=== PATIENT | male | born 1955 | race Caucasian/White ===

== ENCOUNTER 2016-11-13 17:16 | Inpatient (IN) | payer OTHER, MEDICARE ==
[2016-11-13] VITALS (13 sets, daily range): BP systolic 76–101; BP diastolic 51–66; PULSE 96–106; RESP 15–22; TEMP 97.5–98.7; O2SAT 90–100
[~2016-11-13] VITALS: Ht 180.3 cm; Wt 70.0 kg
[~2016-11-13 17:16] MED LIST: HYDR-3533 PO; METO25TA3 PO; PNEU13P IM; TYLETAB34 PO
[2016-11-13] MEDS ORDERED: methylPREDNISolone SOD SUCC 125 MG/2 ML VIAL IVP ONE (17:45)
[2016-11-13] MEDS ORDERED: SODIUM CHLORIDE 0.9% FLUSH 10 ML FLUSH IVF PRN (17:45)
--- NOTE | 2016-11-13 17:46 | PD ---
HPI Chief Complaint: Respiratory Distress Time Seen by Provider: 17:27 Travel History International Travel<30 days: No Contact w/Intl Traveler<30days: No Traveled to known affect area: No History of Present Illness HPI This is a 61 year old male who presents to the emergency department with increasing shortness of breath and weakness, constant, moderate severity, worse with exertion associated with frequent falls. The patient has a history of stage III lung cancer for which she follows with Dr. Reynoso currently and he is currently in remission. He completed chemotherapy and radiation several years ago with Dr. Carranza. He is concerned because he has been increasingly dyspneic. He does smoke 8 cigarettes per week. He's had increasing sputum production with yellow and green sputum. He denies any fevers or chills. He is been having easy bruising. PFSH Past Medical History Hx Anticoagulant Therapy: Yes (325MG ASA) Anemia: Yes Arthritis: No Asthma: Yes Autoimmune Disease: No Anxiety: Yes Depression: Yes Heart Rhythm Problems: No Cancer: Yes (LUNG CANCER ) Cardiovascular Problems: Yes (CHF) High Cholesterol: No Chemotherapy: Yes (2011) Chest Pain: Yes Congestive Heart Failure: Yes COPD: Yes (Wears O2 at night) Cerebrovascular Accident: No Diabetes: No Diminished Hearing: No Endocrine: No Gastrointestinal Disorders: Yes (GERD) GERD: Yes Genitourinary: No Headaches: Yes Hepatitis: No Hiatal Hernia: No Hypertension: Yes Immune Disorder: No Implanted Vascular Access Dvce: Yes (RIGHT CHEST PORT) Kidney Stones: No Musculoskeletal: No Neurologic: No Psychiatric: No Reproductive: No Respiratory: Yes (LUNG CA, COPD) Immunizations Current: Yes Migraines: No Pneumonia: Yes Radiation Therapy: Yes Renal Failure: No Seizures: No Sickle Cell Disease: No Thyroid Disease: No Ulcer: No ?: Not Past Surgical History Abdominal Surgery: No AICD: No Arteriovenous Shunt: No Body Medical Devices: PORT SIDE INFUSAPORT Cardiac Surgery: No Ear Surgery: No Endocrine Surgery: No Eye Surgery: No Genitourinary Surgery: Yes (VASECTOMY) Hysterectomy: No Insulin Pump: No Joint Replacement: No Oral Surgery: No Pacemaker: No Thoracic Surgery: No Other Surgery: Yes (PORT RIGHT CHEST) Social History Alcohol Use: Yes (COUPLE DRINKS PER WEEK) Tobacco Use: Yes (5 CIGARETTES PER DAY) Substance Use: No Allergies-Medications (Allergen,Severity, Reaction): Coded Allergies: penicillin G (Unverified Allergy, Severe, ANAPHYLAXIS, 11/13/16) Reported Meds & Prescriptions Reported Meds & Active Scripts Active Tylenol-Codeine #3 (Acetaminophen-Codeine) 300-30 mg Tab 1-2 Tab PO Q6H PRN Reported Lasix (Furosemide) 20 Mg Tab 20 Mg PO DAILY Mirtazapine 15 Mg Tab 15 Mg PO HS Lortab (Hydrocodone-Acetaminophen) 5-325 Mg Tab 1 Tab PO Q6H PRN Metoprolol Tartrate 25 Mg Tab 25 Mg PO DAILY Review of Systems Except as stated in HPI: all other systems reviewed are Neg Physical Exam Narrative GENERAL: Chronically unwell-appearing SKIN: Pale sclera, ecchymoses over the bilateral upper and lower extremities HEAD: Atraumatic. Normocephalic. EYES: Pupils equal and round. No injection or drainage. ENT: Moist mucous membranes NECK: Trachea midline. CARDIOVASCULAR: Regular rate and rhythm. No murmur appreciated. RESPIRATORY: Rales in the bilateral bases with some expiratory wheezing GASTROINTESTINAL: Abdomen soft, non-tender, nondistended. MUSCULOSKELETAL: No obvious deformities. NEUROLOGICAL: Awake and alert. No obvious cranial nerve deficits. No dysarthria or aphasia. No upper or lower extremity drift. No upper extremity ataxia. PSYCHIATRIC: Appropriate mood and affect; insight and judgment normal. Data Data Last Documented VS Vital Signs Date Time Temp Pulse Resp B/P (MAP) Pulse Ox O2 Delivery O2 Flow Rate FiO2 11/13/16 19:11 106 16 97/66 (76) 98 Room Air 11/13/16 18:30 2.00 11/13/16 17:20 97.5 Orders Orders Complete Blood Count With Diff (11/13/16 17:37) Comprehensive Metabolic Panel (11/13/16 17:37) B-Type Natriuretic Peptide (11/13/16 17:37) Act Partial Throm Time (Ptt) (11/13/16 17:37) Prothrombin Time / Inr (Pt) (11/13/16 17:37) Troponin I (11/13/16 17:37) Iv Access Insert/Monitor (11/13/16 17:37) Electrocardiogram (11/13/16 17:37) Ecg Monitoring (11/13/16 17:37) Oximetry (11/13/16 17:37) Oxygen Administration (11/13/16 17:37) Chest, Single Ap (11/13/16 17:37) Sodium Chloride 0.9% Flush (Ns Flush) (11/13/16 17:45) Methylprednisolone So Succ Inj (Solumedr (11/13/16 17:45) Albuterol-Ipratropium Neb (Duoneb Neb) (11/13/16 17:45) Us Leg Venous Doppler Bilat (11/13/16 ) Ct Brain W/O Iv Contrast(Rout) (11/13/16 ) Ct Thorax/ Chest W Iv Contrast (11/13/16 ) Labs Laboratory Tests Test 11/13/16 17:56 White Blood Count 5.4 TH/MM3 Red Blood Count 2.70 MIL/MM3 Hemoglobin 8.4 GM/DL Hematocrit 24.2 % Mean Corpuscular Volume 89.8 FL Mean Corpuscular Hemoglobin 31.3 PG Mean Corpuscular Hemoglobin Concent 34.9 % Red Cell Distribution Width 34.1 % Platelet Count 145 TH/MM3 Mean Platelet Volume 9.4 FL Neutrophils (%) (Auto) 56.4 % Lymphocytes (%) (Auto) 23.0 % Monocytes (%) (Auto) 11.2 % Eosinophils (%) (Auto) 2.1 % Basophils (%) (Auto) 7.3 % Neutrophils # (Auto) 3.0 TH/MM3 Lymphocytes # (Auto) 1.2 TH/MM3 Monocytes # (Auto) 0.6 TH/MM3 Eosinophils # (Auto) 0.1 TH/MM3 Basophils # (Auto) 0.4 TH/MM3 CBC Comment AUTO DIFF Prothrombin Time 12.3 SEC Prothromb Time International Ratio 1.1 RATIO Activated Partial Thromboplast Time 35.4 SEC MDM Medical Decision Making Medical Screen Exam Complete: Yes Emergency Medical Condition: Yes Interpretation(s) afebrile, tachycardic, hypotensive no leukocytosis anemia 8.4 down from 10.7 in may Coags are normal Last 24 hours Impressions Chest X-Ray 11/13/16 1737 Signed Impressions: Service Date/Time: Sunday, November 13, 2016 17:58 - CONCLUSION: No acute findings. Jose Francois MD Lower Extremity Ultrasound 11/13/16 0000 Signed Impressions: Service Date/Time: Sunday, November 13, 2016 17:57 - CONCLUSION: No DVT of either lower extremity. Jose Francois MD Differential Diagnosis Upper GI bleed, lower GI bleed, sepsis, hypovolemia, lung cancer, pneumonia Narrative Course This is a 61-year-old male who presents to the emergency department with a remote history of lung cancer reporting increasing shortness of breath over the past several days, generalized weakness and increasing falls. On arrival he was hypotensive. He was given a liter of IV fluid. On reassessment his map was 79. Hemoccult was obtained which was positive but stool was normal in color. Patient has a hemoglobin of 8.4 which is significantly decreased from 10.7 and March. Patient will be ordered for 2 units of blood. Labs are still pending. Following labs patient should be admitted. Given his hypotension I think it's reasonable to admit him to the intensive care unit. Critical Care Narrative Aggregate critical care time was 35 minutes. Time to perform other separately billable procedures was not included in the critical care time. My time did not include minutes spent treating any other patients simultaneously or on activities that did not directly contribute to the patient's treatment. The services I provided to this patient were to treat and/or prevent clinically significant deterioration that could result in: disability, I provided critical care services requiring my management, as noted below: Chart data review, documentation time, medication orders and management, vital sign assessments/reviewing monitor data, ordering and reviewing lab tests, ordering and interpreting/reviewing x-rays and diagnostic studies, care of the patient and discussion of the patient with the admitting physicians. Diagnosis Primary Impression: GI bleed Qualified Codes: K92.2 - Gastrointestinal hemorrhage, unspecified Admitting Information Admitting Physician Requests: it Marly Rogers MD Nov 13, 2016 17:46
[2016-11-13] MEDS: RESP: ALBUTEROL 2.5 MG/IPRATROPIUM 0.5 MG NEB (SCH) INH ×3 (17:58→23:27)
--- NOTE | 2016-11-13 18:06 | RADRPT ---
EXAM DATE/TIME: 11/13/2016 17:58 [facility] COMPARISON: CHEST SINGLE AP, September 06, 2015, 14:43. INDICATIONS : Short of breath. MEDICAL HISTORY : Carcinoma, lung. Chronic obstructive pulmonary disease. Hypertension. SURGICAL HISTORY : None. ENCOUNTER: Initial ACUITY: 1 day PAIN SCORE: 0/10 LOCATION: Bilateral chest FINDINGS: Dense chronic consolidation of the apex and volume loss on the right again noted. There is mild scarr ing in the left midlung and left base, also unchanged. No acute infiltrates seen. No pleural effusion or pneumothorax. Heart size stable, upper limits of normal. Right IJ Mcimmp-s-Hocp catheter again seen, tip in the right atrium. CONCLUSION: No acute findings. Jose Francois MD on November 13, 2016 at 18:04 Board Certified Radiologist. This report was verified electronically.
--- NOTE | 2016-11-13 18:34 | RADRPT ---
EXAM DATE/TIME: 11/13/2016 17:57 [facility] COMPARISON: US LEG BILATERAL VENOUS DOPPLER, December 19, 2014, 12:23. INDICATIONS : Shortness of breath. MEDICAL HISTORY : Chronic obstructive pulmonary disease. Gastroesophageal reflux disease. Carcinoma, lung. Congestive h eart failure. Chest pain. Hypertension. Asthma. Anxiety. Depression. Chemotherapy. SURGICAL HISTORY : Vasectomy. Port right chest. ENCOUNTER: Initial ACUITY: 4 - 6 days PAIN SCORE: 0/10 LOCATION: Bilateral legs. TECHNIQUE: Venous ultrasound of the left and right leg was performed from the inguinal ligament to the proximal calf. Real-time, color Doppler and spectral tracing, compression and augmentation techniques were us ed. FINDINGS: RIGHT LEG: There is normal compressibility of the deep venous system from the inguinal region to the proximal ca lf. No echogenic clot is seen in the lumen of the common femoral, femoral, popliteal, and posterior tibial veins. There is a normal response of the venous system to proximal and distal augmentation an d respiration. LEFT LEG: There is normal compressibility of the deep venous system from the inguinal region to the proximal ca lf. No echogenic clot is seen in the lumen of the common femoral, femoral, popliteal, and posterior tibial veins. There is a normal response of the venous system to proximal and distal augmentation an d respiration. CONCLUSION: No DVT of either lower extremity. Jose Francois MD on November 13, 2016 at 18:32 Board Certified Radiologist. This report was verified electronically.
[2016-11-13 18:50] LABS: APTT (PATIENT) 35.4 SEC (24.3-30.1); INTERNATIONAL NORMALIZED RATIO 1.1 RATIO; PROTHROMBIN TIME - PATIENT 12.3 SEC (9.8-11.6)
[2016-11-13] MEDS ORDERED: FURO1TAB62 PO (18:51)
[2016-11-13] MEDS ORDERED: MIRTA15 PO (18:51)
[2016-11-13 18:52] LABS: BASOPHIL # 0.4 TH/MM3 (0-0.2); BASOPHIL % 7.3 % (0.0-2.0); EOSINOPHIL # 0.1 TH/MM3 (0-0.4); EOSINOPHIL % 2.1 % (0.0-4.0); HEMATOCRIT 24.2 % (39.0-51.0); LYMPHOCYTE # 1.2 TH/MM3 (1.0-4.8); MEAN CELL VOLUME 89.8 FL (80.0-100.0); MEAN CORPUSCULAR HEMOGLOBIN 31.3 PG (27.0-34.0); MEAN CORPUSCULAR HGB CONC 34.9 % (32.0-36.0); MONO % 11.2 % (0.0-8.0); NEUT % 56.4 % (16.0-70.0); PLATELET COUNT 145 TH/MM3 (150-450); RED CELL DISTRIBUTION WIDTH 34.1 % (11.6-17.2); WHITE BLOOD COUNT 5.4 TH/MM3 (4.0-11.0)
[2016-11-13 18:56] LABS: HEMO FLAGS AUTO DIFF
[2016-11-13 19:14] LABS: ALKALINE PHOSPHATASE 161 U/L (45-117); ALT (GPT) 11 U/L (12-78); TOTAL BILIRUBIN ADULT 0.2 MG/DL (0.2-1.0)
[2016-11-13 19:19] LABS: ANION GAP 13 MEQ/L (5-15); AST (GOT) 18 U/L (15-37); BICARBONATE 23.4 MEQ/L (21.0-32.0); BLOOD UREA NITROGEN 7 MG/DL (7-18); CHLORIDE 92 MEQ/L (98-107); GLOMERULAR FILTRATION RATE 106 ML/MIN (>89); POTASSIUM 3.6 MEQ/L (3.5-5.1); SODIUM (NA) 128 MEQ/L (136-145)
[2016-11-13] MEDS ORDERED: ONDANSETRON HCL 4 MG/2 ML VIAL IV PUSH PRN (19:30)
[2016-11-13] MEDS ORDERED: CHLORHEXIDINE GLUCONATE 2 % 1 PACK (2 CLOTHS) TOP PRN (19:30)
[2016-11-13] MEDS ORDERED: LACTULOSE SYRUP 20 GM/30 ML CUP PO PRN (19:30)
[2016-11-13] MEDS ORDERED: MAGNESIUM HYDROXIDE SUSP 30 ML CUP PO PRN (19:30)
[2016-11-13] MEDS ORDERED: SODIUM CHLOR 0.9% 250 ML INJ 250 ML IV ONE (19:30)
[2016-11-13] MEDS ORDERED: BISACODYL 10 MG SUPP RECTAL PRN (19:30)
[2016-11-13] MEDS ORDERED: ACETAMINOPHEN 325 MG TAB PO PRN (19:30)
[2016-11-13] MEDS ORDERED: RESP: ALBUTEROL 2.5 MG/3 ML NEB (PRN) INH (19:30)
[2016-11-13] MEDS ORDERED: MISCELLANEOUS NURSING INFORMATION XX SCH (19:30)
[2016-11-13] MEDS ORDERED: SENNOSIDES 8.6 MG TAB PO PRN (19:30)
[2016-11-13] MEDS ORDERED: SODIUM CHLORIDE 0.9% FLUSH 10 ML FLUSH IV FLUSH PRN (19:30)
--- NOTE | 2016-11-13 19:37 | HHI.HP ---
[facility] Service Critical Care Medicine Primary Care Physician Ney Sawyer M.D. Admission Diagnosis Chronic respiratory failure gi bleed Diagnosis: (1) Thrombocytopenia Diagnosis: Principal (2) Acute blood loss anemia Diagnosis: Principal (3) Hypoglycemia Diagnosis: Principal (4) Elevated partial thromboplastin time (PTT) Diagnosis: Principal (5) Hyponatremia Diagnosis: Principal (6) GI bleed Diagnosis: Principal (7) Alcoholism Diagnosis: Principal (8) Tobacco dependence syndrome Diagnosis: Principal (9) Anxiety disorder Diagnosis: Principal (10) Non-small cell lung cancer Diagnosis: Principal (11) Shortness of breath Diagnosis: Principal (12) Hypertension Diagnosis: Principal (13) Systolic CHF Diagnosis: Principal (14) Lower extremity edema Diagnosis: Principal (15) Chronic systolic heart failure Diagnosis: Principal (16) Gastroesophageal reflux disease Diagnosis: Principal (17) Chronic respiratory failure Diagnosis: Principal Chief Complaint: Weakness, shortness of breath, lower extremity edema Travel History International Travel<30 Days: No Contact w/Intl Traveler <30 Da: No Traveled to Known Affected Are: No History of Present Illness 61-year-old male. Date of admission 11/13/2016. Past medical history includes chronic systolic heart failure ejection fraction 3035%, COPD on 2.5 L chronic oxygen, prior tobaccoism, stage III poorly differentiated non-small cell carcinoma along right sided osteoarthritis, anxiety, Review of Systems Constitutional: COMPLAINS OF: Fatigue, Weight gain, DENIES: Fever, Weight loss , Chills, Dizziness Endocrine: DENIES: Polydipsia, Polyuria Eyes: DENIES: Blurred vision Ears, nose, mouth, throat: DENIES: Tinnitus, Toothache Respiratory: COMPLAINS OF: Cough, Shortness of breath, DENIES: Sputum production Cardiovascular: DENIES: Chest pain Gastrointestinal: COMPLAINS OF: Constipation, DENIES: Abdominal pain, Nausea, Vomiting Genitourinary: DENIES: Dysuria Musculoskeletal: DENIES: Stiffness, Joint Swelling Integumentary: DENIES: Abnormal pigmentation Hematologic/lymphatic: COMPLAINS OF: Bruising Immunologic/allergic: DENIES: Eczema Neurologic: DENIES: Abnormal gait, Headache Psychiatric: DENIES: Anxiety, Depression Past Family Social History Allergies: Coded Allergies: penicillin G (Unverified Allergy, Severe, ANAPHYLAXIS, 11/13/16) Past Medical History Chronic systolic heart failure Chronic respiratory failure COPD Hypertension Gastroesophageal reflux disease Chronic narcotic use Past Surgical History Right Port-A-Cath placed History of colonoscopy, endoscopy and capsule endoscopy Biopsy of right upper lobe lung cancer T&A Reported Medications Lasix (Furosemide) 20 Mg Tab 20 Mg PO DAILY Mirtazapine 15 Mg Tab 15 Mg PO HS Lortab (Hydrocodone-Acetaminophen) 5-325 Mg Tab 1 Tab PO Q6H PRN Metoprolol Tartrate 25 Mg Tab 25 Mg PO DAILY Active Ordered Medications Reviewed in EMR Family History Brother heart disease. Mother age 78 CVA, father at age 52 due to ME. Social History 2 pack per days for 30 years tobacco. Back to 1 pack per month. + alcohol use. No IV drug use. Physical Exam Vital Signs Vital Signs Date Time Temp Pulse Resp B/P (MAP) Pulse Ox O2 Delivery O2 Flow Rate FiO2 11/13/16 19:11 106 16 97/66 (76) 98 Room Air 11/13/16 18:30 102 20 83/52 (62) 96 Nasal Cannula 2.00 11/13/16 18:01 95 Nasal Cannula 2.00 11/13/16 18:00 96 22 85/53 (64) 96 Nasal Cannula 2.00 11/13/16 17:55 90 Room Air 11/13/16 17:55 90 Room Air 11/13/16 17:45 93 Nasal Cannula 2.00 11/13/16 17:33 103 20 82/56 (65) 95 Room Air 11/13/16 17:30 20 Room Air 11/13/16 17:20 97.5 103 17 76/51 (59) 99 Physical Exam GENERAL: This is a 7-year-old male, currently resting in bed in no acute distress SKIN: Cool and dry. Pale. HEAD: Atraumatic. Normocephalic. EYES: Pupils equal and round around 3 mm bilaterally and reactive. No scleral icterus. No injection or drainage. ENT: No nasal bleeding or discharge. Mucous membranes pink and moist. NECK: Trachea midline. No JVD. CARDIOVASCULAR: Tachycardia, RR. S1, S2. No S4. No S3. Without murmur RESPIRATORY: No accessory muscle use. Clear to auscultation. Breath sounds equal bilaterally. GASTROINTESTINAL: Abdomen soft, non-tender, nondistended. Hypoactive bowel sounds are appreciated MUSCULOSKELETAL: Extremities with 2+ pedal edema. No obvious deformities. NEUROLOGICAL: Awake and alert. No obvious cranial nerve deficits. Motor grossly within normal limits. Five out of 5 muscle strength in the arms and legs. Normal speech. PSYCHIATRIC: Appropriate mood and affect; insight and judgment normal. Laboratory Laboratory Tests Test 11/13/16 17:56 White Blood Count 5.4 Red Blood Count 2.70 Hemoglobin 8.4 Hematocrit 24.2 Mean Corpuscular Volume 89.8 Mean Corpuscular Hemoglobin 31.3 Mean Corpuscular Hemoglobin Concent 34.9 Red Cell Distribution Width 34.1 Platelet Count 145 Mean Platelet Volume 9.4 Neutrophils (%) (Auto) 56.4 Lymphocytes (%) (Auto) 23.0 Monocytes (%) (Auto) 11.2 Eosinophils (%) (Auto) 2.1 Basophils (%) (Auto) 7.3 Neutrophils # (Auto) 3.0 Lymphocytes # (Auto) 1.2 Monocytes # (Auto) 0.6 Eosinophils # (Auto) 0.1 Basophils # (Auto) 0.4 CBC Comment AUTO DIFF Prothrombin Time 12.3 Prothromb Time International Ratio 1.1 Activated Partial Thromboplast Time 35.4 Blood Urea Nitrogen 7 Creatinine 0.75 Random Glucose 67 Total Protein 6.0 Albumin 2.8 Calcium Level 8.3 Alkaline Phosphatase 161 Aspartate Amino Transf (AST/SGOT) 18 Alanine Aminotransferase (ALT/SGPT) 11 Total Bilirubin 0.2 Sodium Level 128 Potassium Level 3.6 Chloride Level 92 Carbon Dioxide Level 23.4 Anion Gap 13 Estimat Glomerular Filtration Rate 106 Troponin I LESS THAN 0.02 B-Type Natriuretic Peptide 169 Result Diagram: 11/13/16 1756 11/13/16 1756 Imaging Last Impressions Chest X-Ray 11/13/16 1737 Signed Impressions: Service Date/Time: Sunday, November 13, 2016 17:58 - CONCLUSION: No acute findings. Jose Francois MD Lower Extremity Ultrasound 11/13/16 0000 Signed Impressions: Service Date/Time: Sunday, November 13, 2016 17:57 - CONCLUSION: No DVT of either lower extremity. MD James Mcgregor VTE Risk Assessment James VTE Risk Assessment: Mod/High Risk (score >= 2) VTE Pharm Contraindication: High risk for bleeding Caprini Risk Assessment Model Point Value = 1 Point Value = 2 Point Value = 3 Point Value = 5 Age 41-60 Minor surgery BMI > 25 kg/m2 Swollen legs Varicose veins or History of unexplained or recurrent spontaneous Oral contraceptives or hormone replacement Sepsis (< 1 month) Serious lung disease, including pneumonia (< 1 month) Abnormal pulmonary function Acute myocardial infarction Congestive heart failure (< 1 month) History of inflammatory bowel disease Medical patient at bed rest Age 61-74 Arthroscopic surgery Major open surgery (> 45 min) Laparoscopic surgery (> 45 min) Malignancy Confined to bed (> 72 hours) Immobilizing plaster cast Central venous access Age >= 75 History of VTE Family history of VTE Factor V Leiden Prothrombin [id number] Lupus anticoagulant Anticardiolipin antibodies Elevated serum homocysteine Heparin-induced thrombocytopenia Other congenital or acquired thrombophilia Stroke (< 1 month) Elective arthroplasty Hip, pelvis, or leg fracture Acute spinal cord injury (< 1 month) Prophylaxis Regimen Total Risk Factor Score Risk Level Prophylaxis Regimen 0-1 Low Early ambulation 2 Moderate Order ONE of the following: *Sequential Compression Device (SCD) *Heparin 5000 units SQ BID 3-4 Higher Order ONE of the following medications: *Heparin 5000 units SQ TID *Enoxaparin/Lovenox 40 mg SQ daily (WT < 150 kg, CrCl > 30 mL/min) *Enoxaparin/Lovenox 30 mg SQ daily (WT < 150 kg, CrCl > 10-29 mL/min) *Enoxaparin/Lovenox 30 mg SQ BID (WT < 150 kg, CrCl > 30 mL/min) AND/OR *Sequential Compression Device (SCD) 5 or more Highest Order ONE of the following medications: *Heparin 5000 units SQ TID (Preferred with Epidurals) *Enoxaparin/Lovenox 40 mg SQ daily (WT < 150 kg, CrCl > 30 mL/min) *Enoxaparin/Lovenox 30 mg SQ daily (WT < 150 kg, CrCl > 10-29 mL/min) *Enoxaparin/Lovenox 30 mg SQ BID (WT < 150 kg, CrCl > 30 mL/min) AND *Sequential Compression Device (SCD) Assessment and Plan Assessment and Plan Neuro/Psych: Anxiety disorder History of EtOH CT right 11/13 revealed no acute intracranial findings Continue mirtazapine 15 mill grams by mouth at bedtime Continue thiamine 100 mg IV daily. Add folate and multivitamin daily. Monitor for DTs Holding acetaminophen/codeine and acetaminophen/hydrocodone CV: Chronic systolic heart failure Hypertension Echocardiogram 05/14 revealed EF 30-35%. Mild AR/MR. REGGIE 50 mmHg. Currently metoprolol 25 mg by mouth daily. EKG revealed normal sinus rhythm 94. No ST-T specific changes. Repeat echocardiogram ordered Holding furosemide 20 mg by mouth daily light of hypotension Doppler ultrasounds bilateral lower extremity's negative for DVT Resp: Chronic respiratory failure COPD - 2.5 L dependent Continue oxygen to maintain saturations greater than equal to 90% Bronchodilator therapy with albuterol/ipratropium every 4 hours with albuterol every 2 hours when necessary Add Symbicort 160/4.52 puffs twice a day Chest x-ray - dense chronic consolidation of the apex and volume loss on the right again noted. There is mild scarring in the left midlung and left base, also unchanged. GI: Constipation Patient is currently nothing by mouth Pantoprazole 40 mg IV twice a day for GI prophylaxis Docusate sodium/Senokot 1 tablet twice a day for bowel regimen Patient self reports he's had a negative EGD/colonoscopy and capsule endoscopy in past : Wells catheter if indicated for accurate I's and O's in a critically ill patient Endo: Hypoglycemia Sliding-scale insulin with Accu-Cheks to maintain euglycemia Recheck glucose treat as clinically indicated Place on D5 fluids overnight Renal: Creatinine currently within normal limits Monitor urine output Accurate I's and O's Heme: Normocytic anemia Thrombocytopenia Elevated PTT Baseline hemoglobin around 10. Currently 8.4. Oncology consulted today. Check FE/TIBC, ferritin, reticulocyte count and peripheral smears Hemoccult was positive in ED. ID: Possible URI/bronchitis Placed on levofloxacin 750 mg IV daily. Blood cultures 2, sputum, urine, Legionella, coccal influenza all pending FEN: Hyponatremia Workup hyponatremia clinically indicated. Recheck sodium in AM. MSK: Osteoporosis/osteoarthritis PT evaluate and treat Access - Utilize peripheral IV. Central line if indicated Prophylaxis - GI - pantoprazole - DVT - SCD/holding pharmacological prophylaxis in light of anemia, heme positive stools Level III admission Code Status Full code Discussed Condition With Patient. Care plan discussed and all questions answered. Problem Qualifiers (1) GI bleed: Qualified Codes: K92.2 - Gastrointestinal hemorrhage, unspecified (2) Anxiety disorder: Qualified Codes: F41.9 - Anxiety disorder, unspecified (3) Non-small cell lung cancer: Qualified Codes: C34.90 - Malignant neoplasm of unspecified part of unspecified bronchus or lung (4) Hypertension: Qualified Codes: I10 - Essential (primary) hypertension (5) Systolic CHF: Qualified Codes: I50.22 - Chronic systolic (congestive) heart failure (6) Gastroesophageal reflux disease: Qualified Codes: K21.9 - Gastro-esophageal reflux disease without esophagitis (7) Chronic respiratory failure: Qualified Codes: J96.11 - Chronic respiratory failure with hypoxia Alireza Kennedy MD Nov 13, 2016 19:37
[2016-11-13] MEDS ORDERED: THIAMINE INJ 100 MG in SODIUM CHLORIDE 0.9% INJ 100 ML IV ONE (19:45)
[2016-11-13] MEDS: SODIUM CHLOR 0.9% 1000 ML INJ 1,000 ML IV SCH (20:00)
--- NOTE | 2016-11-13 20:14 | RADRPT ---
EXAM DATE/TIME: 11/13/2016 19:49 [facility] COMPARISON: No previous studies available for comparison. INDICATIONS : Trauma, fall. Abrasion to forehead. RADIATION DOSE: 39.34 CTDIvol (mGy) MEDICAL HISTORY : Congestive hearrt failure. Hypertension. Chronic obstructive pulmonary disease.Asthma. Lung cancer. SURGICAL HISTORY : None. ENCOUNTER: Initial ACUITY: 1 day PAIN SCALE: 0/10 LOCATION: cranial TECHNIQUE: Multiple contiguous axial images were obtained of the head. Using automated exposure control and adj ustment of the mA and/or kV according to patient size, radiation dose was kept as low as reasonably a chievable to obtain optimal diagnostic quality images. DICOM format image data is available electro nically for review and comparison. FINDINGS: CEREBRUM: The ventricles are normal for age. No evidence of midline shift, mass lesion, hemorrhage or acute in farction. No extra-axial fluid collections are seen. POSTERIOR FOSSA: The cerebellum and brainstem are intact. The 4th ventricle is midline. The cerebellopontine angle i s unremarkable. EXTRACRANIAL: The visualized portion of the orbits is intact. SKULL: The calvaria is intact. No evidence of skull fracture. CONCLUSION: Negative noncontrast head CT. Jose Francois MD on November 13, 2016 at 20:12 Board Certified Radiologist. This report was verified electronically.
[2016-11-13] MEDS ORDERED: SODIUM CHLOR 0.9% 1000 ML INJ 1,000 ML IV ONE (20:15)
[2016-11-13 20:20] LABS: SCAN/DIFF AUTO DIFF CONFIRMED
[2016-11-13 20:21] LABS: ACANTHOCYTES 1+ (NORMAL); KERATOCYTES OCC (NORMAL); PLATELET ESTIMATE SMEAR NORMAL (NORMAL)
[2016-11-13 20:22] LABS: PLATELET MORPHOLOGY ENLARGED (NORMAL)
[2016-11-13] MEDS ORDERED: PANTOPRAZOLE INJ 80 MG in SODIUM CHLORIDE 0.9% INJ 35 ML IV ONE (20:28)
[2016-11-13] MEDS ORDERED: PANTOPRAZOLE INJ 80 MG in SODIUM CHLORIDE 0.9% INJ 100 ML IV SCH (20:28)
[2016-11-13] MEDS: SODIUM CHLORIDE 0.9% FLUSH 10 ML FLUSH IV FLUSH SCH (21:00)
[2016-11-13] MEDS: DOCUSATE SODIUM 50 MG/SENNA 8.6 MG TAB PO SCH (21:00)
[2016-11-13] MEDS: MIRTAZAPINE 15 MG TAB PO SCH (21:32)
[2016-11-13] MEDS: LEVOFLOXACIN 750 MG PREMIX INJ 150 ML IV SCH (21:32)
[2016-11-13] MEDS: PANTOPRAZOLE SODIUM 40 MG VIAL IV PUSH SCH (21:33)
[2016-11-13 23:27] LABS: FERRITIN 208 NG/ML (26-388); TRANSFERRIN IRON PROFILE 163 MG/DL (200-360)
[2016-11-14] VITALS (12 sets, daily range): BP systolic 83–123; BP diastolic 54–70; PULSE 92–113; RESP 15–24; TEMP 96.7–99.1; O2SAT 91–100
[2016-11-14] MEDS: CHLORHEXIDINE GLUCONATE 2 % 1 PACK (2 CLOTHS) TOP SCH (03:18)
[2016-11-14] MEDS: RESP: ALBUTEROL 2.5 MG/IPRATROPIUM 0.5 MG NEB (SCH) INH ×5 (04:00→19:30)
[2016-11-14 04:13] LABS: BLOOD, URINE NEG (NEG); GLUCOSE,URINE 70 mg/dL (NEG); KETONE, URINE NEG (NEG); NITRITE,URINE NEG (NEG); URINE COLOR LIGHT-YELLOW (YELLW/STRAW)
[2016-11-14 04:18] LABS: COMMENT (UR) CULT NOT INDICATED; CULTURE IF INDICATED CULT NOT INDICATED
[2016-11-14 05:12] LABS: RETIC % 2.6 % (0.4-3.0)
[2016-11-14 05:16] LABS: REVIEW FLAG FINAL
[2016-11-14 05:22] LABS: BASOPHIL # 0.3 TH/MM3 (0-0.2); BASOPHIL % 9.3 % (0.0-2.0); EOSINOPHIL % 0.1 % (0.0-4.0); HEMATOCRIT 30.6 % (39.0-51.0); LYMPH % 15.6 % (9.0-44.0); LYMPHOCYTE # 0.4 TH/MM3 (1.0-4.8); MEAN CELL VOLUME 88.5 FL (80.0-100.0); MEAN CORPUSCULAR HEMOGLOBIN 29.6 PG (27.0-34.0); MEAN CORPUSCULAR HGB CONC 33.5 % (32.0-36.0); PLATELET COUNT 161 TH/MM3 (150-450); RED BLOOD COUNT 3.46 MIL/MM3 (4.50-5.90); RED CELL DISTRIBUTION WIDTH 29.5 % (11.6-17.2); WHITE BLOOD COUNT 2.7 TH/MM3 (4.0-11.0)
[2016-11-14 05:23] LABS: APTT (PATIENT) 34.8 SEC (24.3-30.1); HEMO FLAGS AUTO DIFF; INTERNATIONAL NORMALIZED RATIO 1.2 RATIO; PROTHROMBIN TIME - PATIENT 12.8 SEC (9.8-11.6)
[2016-11-14 05:33] LABS: ALT (GPT) 9 U/L (12-78); ANION GAP 7 MEQ/L (5-15); AST (GOT) 8 U/L (15-37); BICARBONATE 28.9 MEQ/L (21.0-32.0); BLOOD UREA NITROGEN 7 MG/DL (7-18); CHLORIDE 97 MEQ/L (98-107); GLOMERULAR FILTRATION RATE 125 ML/MIN (>89); MAGNESIUM 1.8 MG/DL (1.5-2.5); POTASSIUM 3.6 MEQ/L (3.5-5.1); SODIUM (NA) 133 MEQ/L (136-145)
[2016-11-14 05:35] LABS: ALKALINE PHOSPHATASE 158 U/L (45-117); TOTAL BILIRUBIN ADULT 0.7 MG/DL (0.2-1.0)
[2016-11-14 07:00] LABS: BANDS 3 % (0-6); BASOPHILS 2 % (0-2); CORRECTED NUCLEATED RBC 1 /100 WBC (0-0); METAMYELOCYTES 1 % (0-1); MYELOCYTES 5 % (0-0); NEUTROPHIL # MANUAL DIFF 2.3 TH/MM3 (1.8-7.7); POLYS (SEG NEUTROPHILS) 77 % (16-70); WBC DIFF SAMPLE 100
[2016-11-14 07:01] LABS: ACANTHOCYTES OCC (NORMAL); KERATOCYTES OCC (NORMAL); PLATELET ESTIMATE SMEAR NORMAL (NORMAL); PLATELET MORPHOLOGY ENLARGED (NORMAL); SCAN/DIFF FINAL DIFF MANUAL
[2016-11-14] MEDS: PANTOPRAZOLE SODIUM 40 MG VIAL IV PUSH SCH ×2 (08:00→20:38)
[2016-11-14] MEDS: SODIUM CHLOR 0.9% 1000 ML INJ 1,000 ML IV SCH (08:39)
--- NOTE | 2016-11-14 08:47 | PD.CONS ---
HPI History of Present Illness This is a 61 year old male with a history of Stage 3 non small cell carcinoma, s /p 6 weeks of chemotherapy and radiation, completed 5 years ago (followed now by Dr. Santana), chronic respiratory failure and COPD (on 2.5 n/c at home) who presented to the emergency room with increasing shortness of breath with generalized weakness. He was found to have anemia with HH of 8.4/24.2. He has been evaluated by Dr. Mccain in the past for anemia and I informed patient that I was going to consult his service, but the patient refused and states that he is no longer being seen by him and does not wish for me to consult his service. The patient reports that he had an egd/colonoscopy about 14 months ago. He states this was unremarkable and that he was then evaluated by capsule endoscopy. He reports that this was also unremarkable. He states that since his egd, he has had an ongoing issue with hoarseness. He has occasional heartburn, if he eats something spicy, but states this is controlled for the most part with diet. He denies any nausea, vomiting, abdominal pain. His weight tends to fluctuate back and forth a few lbs, but no significant weight loss. He does have intermittent constipation secondary to chronic opiate use. A few days ago, he was constipated for 3 days. He took a few ex lax and then had multiple bowel movements. He does note that the last one he had yesterday was darker than usual, but he denies any red blood. He does note that he takes Anacin on a daily basis for headaches- sometimes 5-6 per day. Occasional ETOH use. D/W patient possible evaluation with EGD. The patient is adamantly against this and is refusing any procedures, especially EGD (because he feels that his hoarseness is related to his past EGD and the fact that he does not want to have any sedation). Explained to patient our concern that he could have a gastric ulcer given his dark stool and use of aspirin, but patient is still refusing. (Nikki Waters) PFSH Past Medical History Anemia Arthritis Chronic pain Headaches GERD CHF COPD Chronic respiratory failure, on O2 2.5 L via n/c Stage 3 non small cell carcinoma, s/p radiation/chemotherapy 5 years ago Chronic hoarseness Past Surgical History Port placement EGD/Colonoscopy Capsule endoscopy Vasectomy (Nikki Waters) Coded Allergies: penicillin G (Unverified Allergy, Severe, ANAPHYLAXIS, 11/13/16) Medications Allergies Coded Allergies Type Severity Reaction Last Updated Verified penicillin G Allergy Severe ANAPHYLAXIS 11/13/16 No Active Scripts Medications Dose Route/Sig Max Daily Dose Days Date Category Lasix (Furosemide) 20 Mg Tab 20 Mg PO DAILY 11/13/16 Reported Mirtazapine 15 Mg Tab 15 Mg PO HS 11/13/16 Reported Tylenol-Codeine #3 (Acetaminophen-Codeine) 300-30 mg Tab 1-2 Tab PO Q6H PRN 02/10/16 Rx Lortab (Hydrocodone-Acetaminophen) 5-325 Mg Tab 1 Tab PO Q6H PRN 02/10/16 Reported Metoprolol Tartrate 25 Mg Tab 25 Mg PO DAILY 02/10/16 Reported Anacin Family History Mother from old age Father age 71 from [place] Brother has valvular heart disease Social History Smokes 7 cigarettes per week Occasional ETOH use (Nikki Waters) Review of Systems Constitutional: COMPLAINS OF: Fatigue, Weight gain, Weight loss, DENIES: Fever , Chills, Change in appetite Respiratory: COMPLAINS OF: Cough, Wheezing, Shortness of breath Cardiovascular: DENIES: Chest pain Gastrointestinal: COMPLAINS OF: Black stools, Constipation, Heartburn, DENIES: Abdominal pain, Bloody stools, Diarrhea, Nausea, Vomiting, Swelling of Abdomen, Hematemesis Musculoskeletal: COMPLAINS OF: Joint pain, Back pain Hematologic/lymphatic: DENIES: Bruising Neurologic: COMPLAINS OF: Headache Psychiatric: DENIES: Confusion (Nikki Waters) GI Exam Vitals I&O Vital Signs Date Time Temp Pulse Resp B/P (MAP) Pulse Ox O2 Delivery O2 Flow Rate FiO2 11/14/16 07:38 100 Nasal Cannula 2.00 11/14/16 04:00 98.2 92 17 95/58 (70) 100 11/14/16 00:04 100 Nasal Cannula 2.00 11/14/16 00:03 97.7 101 15 83/54 100 11/14/16 00:00 98.6 101 15 83/54 (64) 100 11/13/16 23:48 98.7 100 15 100/58 100 11/13/16 23:00 98.7 101 17 87/55 (66) 100 11/13/16 23:00 96 11/13/16 21:36 98.1 100 20 101/59 100 11/13/16 21:21 98.0 101 19 93/52 100 11/13/16 20:45 98.3 104 20 90/51 (64) 100 11/13/16 20:20 96 Nasal Cannula 2.00 11/13/16 19:11 106 16 97/66 (76) 98 Room Air 11/13/16 18:30 102 20 83/52 (62) 96 Nasal Cannula 2.00 11/13/16 18:01 95 Nasal Cannula 2.00 11/13/16 18:00 96 22 85/53 (64) 96 Nasal Cannula 2.00 11/13/16 17:55 90 Room Air 11/13/16 17:55 90 Room Air 11/13/16 17:45 93 Nasal Cannula 2.00 11/13/16 17:33 103 20 82/56 (65) 95 Room Air 11/13/16 17:30 20 Room Air 11/13/16 17:20 97.5 103 17 76/51 (59) 99 I/O 11/13/16 11/13/16 11/13/16 11/14/16 11/14/16 11/14/16 07:00 15:00 23:00 07:00 15:00 23:00 Intake Total 1438 ml Output Total 600 ml Balance 838 ml Intake Oral 240 ml IV Total 388 ml Packed Cells 500 ml Blood Product IV Normal Saline Flush 310 ml Output Urine Total 600 ml # Bowel Movements 0 Imaging Last Impressions Chest X-Ray 11/13/167 Signed Impressions: Service Date/Time: Sunday, November 13, 2016 17:58 - CONCLUSION: No acute findings. Jose Francois MD Lower Extremity Ultrasound 11/13/16 0000 Signed Impressions: Service Date/Time: Sunday, November 13, 2016 17:57 - CONCLUSION: No DVT of either lower extremity. Jose Francois MD Head CT 11/13/16 0000 Signed Impressions: Service Date/Time: Sunday, November 13, 2016 19:49 - CONCLUSION: Negative noncontrast head CT. Jose Francois MD Laboratory Test 11/13/16 17:56 11/13/16 19:40 11/13/16 21:45 11/14/16 03:45 White Blood Count 5.4 TH/MM3 Red Blood Count 2.70 MIL/MM3 Hemoglobin 8.4 GM/DL Hematocrit 24.2 % Mean Corpuscular Volume 89.8 FL Mean Corpuscular Hemoglobin 31.3 PG Mean Corpuscular Hemoglobin Concent 34.9 % Red Cell Distribution Width 34.1 % Platelet Count 145 TH/MM3 Mean Platelet Volume 9.4 FL Neutrophils (%) (Auto) 56.4 % Lymphocytes (%) (Auto) 23.0 % Monocytes (%) (Auto) 11.2 % Eosinophils (%) (Auto) 2.1 % Basophils (%) (Auto) 7.3 % Neutrophils # (Auto) 3.0 TH/MM3 Lymphocytes # (Auto) 1.2 TH/MM3 Monocytes # (Auto) 0.6 TH/MM3 Eosinophils # (Auto) 0.1 TH/MM3 Basophils # (Auto) 0.4 TH/MM3 CBC Comment AUTO DIFF Differential Comment AUTO DIFF CONFIRMED Platelet Estimate NORMAL Platelet Morphology Comment ENLARGED Acanthocytes 1+ Keratocytes OCC Prothrombin Time 12.3 SEC Prothromb Time International Ratio 1.1 RATIO Activated Partial Thromboplast Time 35.4 SEC Blood Urea Nitrogen 7 MG/DL Creatinine 0.75 MG/DL Random Glucose 67 MG/DL Total Protein 6.0 GM/DL Albumin 2.8 GM/DL Calcium Level 8.3 MG/DL Alkaline Phosphatase 161 U/L Aspartate Amino Transf (AST/SGOT) 18 U/L Alanine Aminotransferase (ALT/SGPT) 11 U/L Total Bilirubin 0.2 MG/DL Sodium Level 128 MEQ/L Potassium Level 3.6 MEQ/L Chloride Level 92 MEQ/L Carbon Dioxide Level 23.4 MEQ/L Anion Gap 13 MEQ/L Estimat Glomerular Filtration Rate 106 ML/MIN Iron Level 97 MCG/DL Total Iron Binding Capacity 228 MCG/DL Percent Iron Saturation 42.5 % Ferritin 208 NG/ML Troponin I LESS THAN 0.02 NG/ML B-Type Natriuretic Peptide 169 PG/ML Lactic Acid Level 1.4 mmol/L Nasal Screen MRSA (PCR) MRSA NOT DETECTED Urine Color LIGHT-YELLOW Urine Turbidity CLEAR Urine pH 5.0 Urine Specific [place] 1.006 Urine Protein NEG mg/dL Urine Glucose (UA) 70 mg/dL Urine Ketones NEG mg/dL Urine Occult Blood NEG Urine Nitrite NEG Urine Bilirubin NEG Urine Urobilinogen LESS THAN 2.0 MG/DL Urine Leukocyte Esterase NEG Microscopic Urinalysis Comment CULT NOT INDICATED Test 11/14/16 04:56 White Blood Count 2.7 TH/MM3 Red Blood Count 3.46 MIL/MM3 Hemoglobin 10.3 GM/DL Hematocrit 30.6 % Mean Corpuscular Volume 88.5 FL Mean Corpuscular Hemoglobin 29.6 PG Mean Corpuscular Hemoglobin Concent 33.5 % Red Cell Distribution Width 29.5 % Platelet Count 161 TH/MM3 Mean Platelet Volume 10.3 FL Neutrophils (%) (Auto) 73.0 % Lymphocytes (%) (Auto) 15.6 % Monocytes (%) (Auto) 2.0 % Eosinophils (%) (Auto) 0.1 % Basophils (%) (Auto) 9.3 % Neutrophils # (Auto) 2.0 TH/MM3 Lymphocytes # (Auto) 0.4 TH/MM3 Monocytes # (Auto) 0.1 TH/MM3 Eosinophils # (Auto) 0.0 TH/MM3 Basophils # (Auto) 0.3 TH/MM3 CBC Comment AUTO DIFF Differential Total Cells Counted 100 Neutrophils % (Manual) 77 % Band Neutrophils % 3 % Lymphocytes % 11 % Monocytes % 1 % Basophils % 2 % Neutrophils # (Manual) 2.3 TH/MM3 Metamyelocytes 1 % Myelocytes 5 % Nucleated Red Blood Cells 1 /100 WBC Differential Comment FINAL DIFF MANUAL Platelet Estimate NORMAL Platelet Morphology Comment ENLARGED Acanthocytes OCC Keratocytes OCC Blood Smear Pathologist Review Reticulocyte Count 2.6 % Absolute Reticulocyte Count 90.8 MIL/L Prothrombin Time 12.8 SEC Prothromb Time International Ratio 1.2 RATIO Activated Partial Thromboplast Time 34.8 SEC Blood Urea Nitrogen 7 MG/DL Creatinine 0.65 MG/DL Random Glucose 255 MG/DL Total Protein 5.7 GM/DL Albumin 2.4 GM/DL Calcium Level 7.8 MG/DL Phosphorus Level 3.6 MG/DL Magnesium Level 1.8 MG/DL Alkaline Phosphatase 158 U/L Aspartate Amino Transf (AST/SGOT) 8 U/L Alanine Aminotransferase (ALT/SGPT) 9 U/L Total Bilirubin 0.7 MG/DL Sodium Level 133 MEQ/L Potassium Level 3.6 MEQ/L Chloride Level 97 MEQ/L Carbon Dioxide Level 28.9 MEQ/L Anion Gap 7 MEQ/L Estimat Glomerular Filtration Rate 125 ML/MIN Lactic Acid Level 1.1 mmol/L Date/Time Source Procedure Growth Status 11/14/16 04:56 Blood Peripheral Aerobic Blood Culture Pending Received 11/14/16 04:56 Blood Peripheral Anaerobic Blood Culture Pending Received 11/14/16 03:45 Urine Clean Catch Legionella Antigen Pending Received 11/14/16 03:45 Urine Clean Catch Streptococcus pneumoniae Antigen (M Pending Received Physical Examination HEENT: Normocephalic; atraumatic; no jaundice. CHEST: Resp. even, slightly labored. Diminished CARDIAC: ST, mildly tachycardic ABDOMEN: Soft, nondistended, nontender; no hepatosplenomegaly; bowel sounds are present in all four quadrants. EXTREMITIES: No clubbing, cyanosis, or edema. SKIN: Normal; no rash; no jaundice. SETTLEMENT PROCESSOR: No focal deficits; alert and oriented times three. (Nikki Waters) Assessment and Plan Plan ASSESSMENT: - Anemia with dark stool and significant ASA use. Pt has been evaluated for anemia in past with EGD/Colonoscopy/Capsule endoscopy about 14 months ago (unremarkable per patient). Of note, he had dark stool yesterday and takes Anacin almost on a daily basis with 5-6 per day on some days. HH 8.4/24.2 on admission. S/P 2 units PRBC, now 10.3/30.6. Iron 97, TIBC 228, Iron Saturation 42.5, Ferritin 208. We will obtain records from past GI workup. D/W patient further evaluation with EGD, but he is adamantly refusing all invasive procedures, especially EGD. Will check stool for hemoccult, tx with protonix with BID dosing, and get hematology evaluation. - GERD. PPI - Constipation, secondary to chronic opiate use. - Chronic respiratory failure/COPD/Hx non small cell carcinoma (s/p chemo/rdx 5 years ago). On 2.5L O2 via n/c at home- continues to smoke 7 cigarettes per day. Levaquin, symbicort, - Elevated glucose, CHF, per attending. PLAN: - Clear liquids - Cont. Protonix 40mg IV BID - Hemoccult x 3 - Monitor HH - Transfuse as necessary - Consult Dr. Santana, patient known to you - Obtain records EGD/Colonoscopy/Capsule endoscopy from Dr. Pasricha's office - Recommend EGD to evaluate for PUD. Pt is refusing at this time. - Supportive care - Further recommendations to follow based on results of above - PT seen and examined by Dr. Unger and myself and this note is written on her behalf (Nikki Waters) Physician Comments seen, examined agree with above discussed with sister, having recurrent falling episodes, as per sister he continues to drink and smoke he admits having epistaxis every other day petechia on his arms and legs-we will send vitamin c level-we will start supplement tion (Sara Unger MD) Nikki Waters Nov 14, 2016 08:47 Sara Unger MD Nov 14, 2016 19:05
[2016-11-14] MEDS: DOCUSATE SODIUM 50 MG/SENNA 8.6 MG TAB PO SCH ×2 (09:00→20:37)
[2016-11-14] MEDS: FOLIC ACID 1 MG TAB PO SCH (09:00)
[2016-11-14] MEDS: SODIUM CHLORIDE 0.9% FLUSH 10 ML FLUSH IV FLUSH SCH ×2 (09:00→20:39)
[2016-11-14] MEDS: THIAMINE INJ 100 MG in SODIUM CHLORIDE 0.9% INJ 100 ML IV SCH (09:00)
[2016-11-14] MEDS: MULTIVITAMIN TAB PO SCH (09:00)
[2016-11-14] MEDS: BUDESONIDE-FORMOTEROL 160/4.5 MCG INHALER INH SCH ×2 (09:00→20:39)
--- NOTE | 2016-11-14 10:16 | HHI.CCPN ---
Subjective Remarks/Hospital Course 61-year-old male. Date of admission 11/13/2016. Past medical history includes chronic systolic heart failure ejection fraction 3035%, COPD on 2.5 L chronic oxygen, prior tobaccoism, stage III poorly differentiated non-small cell carcinoma along right sided osteoarthritis, anxiety Admitted with Hb 8.2, black stools and borderline hypotension SUBJ 11/14: Hemoglobin stable at 10.3 after 2 units PRBC transfusion. Map above 70. No active GI bleeding noted. Appreciate gastroenterology consult patient refuses EGD at this time Objective Vital Signs Date Time Temp Pulse Resp B/P (MAP) Pulse Ox O2 Delivery O2 Flow Rate FiO2 11/14/16 07:38 100 Nasal Cannula 2.00 11/14/16 04:00 98.2 92 17 95/58 (70) Intake and Output 11/14/16 11/14/16 11/15/16 08:00 16:00 00:00 Intake Total 928 ml Output Total 600 ml 500 ml Balance 328 ml -500 ml Result Diagram: 11/14/16 0456 11/14/16 0456 Other Results Microbiology Date/Time Source Procedure Growth Status 11/14/16 03:45 Urine Clean Catch Legionella Antigen - Final PRESUMPTIVE NEGATIVE FOR LEGIONELLA P... Complete 11/14/16 03:45 Urine Clean Catch Streptococcus pneumoniae Antigen (M - Final PRESUMPTIVE NEGATIVE FOR STREPTOCOCCU... Complete Imaging Last Impressions Chest X-Ray 11/13/16 1737 Signed Impressions: Service Date/Time: Sunday, November 13, 2016 17:58 - CONCLUSION: No acute findings. Jose Francois MD Lower Extremity Ultrasound 11/13/16 0000 Signed Impressions: Service Date/Time: Sunday, November 13, 2016 17:57 - CONCLUSION: No DVT of either lower extremity. Jose Francois MD Objective Remarks GENERAL: This is a 7-year-old male, resting in bed in no acute distress SKIN: Cool and dry. Pale. HEAD: Atraumatic. Normocephalic. EYES: Pupils equal and round around 3 mm bilaterally and reactive. No scleral icterus. No injection or drainage. ENT: No nasal bleeding or discharge. Mucous membranes pink and moist. NECK: Trachea midline. No JVD. CARDIOVASCULAR: Tachycardia, RR. S1, S2. No S4. No S3. Without murmur RESPIRATORY: No accessory muscle use. Clear to auscultation. Breath sounds equal bilaterally. GASTROINTESTINAL: Abdomen soft, non-tender, nondistended. Hypoactive bowel sounds are appreciated MUSCULOSKELETAL: Extremities with 2+ pedal edema. No obvious deformities. NEUROLOGICAL: Awake and alert. No obvious cranial nerve deficits. Motor grossly within normal limits. Five out of 5 muscle strength in the arms and legs. Normal speech. A/P Assessment and Plan Neuro/Psych: Anxiety disorder History of EtOH CT head 11/13 revealed no acute intracranial findings Continue mirtazapine 15 mill grams by mouth at bedtime Continue thiamine 100 mg IV daily. Add folate and multivitamin daily. Monitor for DTs Holding acetaminophen/codeine and acetaminophen/hydrocodone CV: Chronic systolic heart failure Hypertension Echocardiogram 05/14 revealed EF 30-35%. Mild AR/MR. REGGIE 50 mmHg. Currently metoprolol 25 mg by mouth daily. On hold due to hypotension EKG revealed normal sinus rhythm 94. No ST-T specific changes. Repeat echocardiogram ordered Holding furosemide 20 mg by mouth daily light of hypotension, resume as clinically indicated Doppler ultrasounds bilateral lower extremity's negative for DVT Resp: Chronic respiratory failure COPD - 2.5 L dependent Continue oxygen to maintain saturations greater than equal to 90% Bronchodilator therapy with albuterol/ipratropium every 4 hours with albuterol every 2 hours when necessary Symbicort 160/4.52 puffs twice a day Chest x-ray - dense chronic consolidation of the apex and volume loss on the right again noted. There is mild scarring in the left midlung and left base, also unchanged. GI: Constipation Patient is currently nothing by mouth. Clear liquid diet started by GI Pantoprazole 40 mg IV twice a day for GI prophylaxis Docusate sodium/Senokot 1 tablet twice a day for bowel regimen Patient self reports he's had a negative EGD/colonoscopy and capsule endoscopy in past. He refuses EGD at this time : Wells catheter if indicated for accurate I's and O's in a critically ill patient Endo: Hypoglycemia-resolved Sliding-scale insulin with Accu-Cheks to maintain euglycemia Recheck glucose treat as clinically indicated Placed on D5 fluids overnight Renal: Creatinine currently within normal limits Monitor urine output Accurate I's and O's Heme: Normocytic anemia Thrombocytopenia Elevated PTT Baseline hemoglobin around 10. Currently 8.4. Hemoglobin 10.3 today after 2 units of PRBC Oncology consulted today. Check FE/TIBC, ferritin, reticulocyte count and peripheral smears Hemoccult was positive in ED. ID: Possible URI/bronchitis Placed on levofloxacin 750 mg IV daily. Blood cultures 2, sputum, urine, Legionella, coccal influenza all pending FEN: Hyponatremia Workup hyponatremia as clinically indicated. Recheck sodium in AM. MSK: Osteoporosis/osteoarthritis PT evaluate and treat Access - Utilize peripheral IV. Central line if indicated Prophylaxis - GI - pantoprazole - DVT - SCD/holding pharmacological prophylaxis in light of anemia, heme positive stools Level II Consult hospitalist to see him care in a.m. transferred to [facility] with Tele Rosangela Garcia MD Nov 14, 2016 10:15
--- NOTE | 2016-11-14 13:20 | ECHRPT ---
Indication: HEART FAILURE CONCLUSIONS The left ventricular systolic function is normal with an estimated ejection fraction in the range of 60-65%. Normal left ventricular size. Wall thickness is normal. No regional wall motion abnormalities are present. Trace mitral valve regurgitation. The aortic valve is not well visualized. Trileaflet aortic valve. Trace aortic valve regurgitation. There is trace tricuspid valve regurgitation. There is a moderate pericardial effusion present with no echocardiographic evidence for tamponade (specifically there is no right ventricular diastolic collapse, no right atrial invagination in grea ter than 2/3 of the cardiac cycle, no variation > 25% in the mitral E wave velocities). BP: 95 / 58 HR: 92 Rhythm: Other MEASUREMENTS (Male / Female) Normal Values Technical Quality:Fair 2D ECHO LV Diastolic Diameter PLAX 4.2 cm 4.2 - 5.9 / 3.9 - 5.3 cm LV Systolic Diameter PLAX 2.8 cm IVS Diastolic Thickness 1.0 cm 0.6 - 1.0 / 0.6 - 0.9 cm LVPW Diastolic Thickness 1.0 cm 0.6 - 1.0 / 0.6 - 0.9 cm LV Relative Wall Thickness 0.5 RV Internal Dim ED PLAX 2.2 cm LVOT Diameter 2.0 cm LA Systolic Diameter LX 3.6 cm 3.0 - 4.0 / 2.7 - 3.8 cm LV Ejection Fraction MOD 4C 61.8 % LV Cardiac Index MOD 4C 2691.8 cm/minm LV Ejection Fraction 4C AL 63.4 % LV Cardiac Index 4C AL 2856.7 cm/minm M-MODE Aortic Root Diameter MM 3.7 cm AV Cusp Separation MM 2.4 cm DOPPLER AV Peak Velocity 130.0 cm/s AV Peak Gradient 6.8 mmHg AI Peak Velocity 490.0 cm/s AI Peak Gradient 96.0 mmHg AI Pressure Half Time 255.0 ms LVOT Peak Velocity 95.3 cm/s LVOT Peak Gradient 3.6 mmHg AV Area Cont Eq pk 2.3 cm MV Area PHT 6.9 cm Mitral E Point Velocity 95.3 cm/s LV E' Lateral Velocity 7.1 cm/s Mitral E to LV E' Lateral Ratio 13.4 PV Peak Velocity 110.0 cm/s PV Peak Gradient 4.8 mmHg FINDINGS LEFT VENTRICLE The left ventricular systolic function is normal with an estimated ejection fraction in the range of 60-65%. Normal left ventricular size. Wall thickness is normal. No regional wall motion abnormalities are present. RIGHT VENTRICLE Normal right ventricular size and systolic function. LEFT ATRIUM The left atrial size is normal. RIGHT ATRIUM The right atrial size is normal. ATRIAL SEPTUM Normal atrial septal thickness without atrial level shunting by limited color doppler interrogation. AORTA The aortic root and proximal ascending aorta are normal in size on limited imaging. MITRAL VALVE Trace mitral valve regurgitation. AORTIC VALVE The aortic valve is not well visualized. Trileaflet aortic valve. Trace aortic valve regurgitation. TRICUSPID VALVE There is trace tricuspid valve regurgitation. PULMONARY VALVE The pulmonary valve is not well visualized. VESSELS The inferior vena cava is normal in size. PERICARDIUM There is a moderate pericardial effusion present with no echocardiographic evidence for tamponade (specifically there is no right ventricular diastolic collapse, no right atrial invagination in grea ter than 2/3 of the cardiac cycle, no variation > 25% in the mitral E wave velocities). Jos Fitch MD (Electronically Signed) Final Date:14 November 2016 13:20
[2016-11-14] MEDS: MIRTAZAPINE 15 MG TAB PO SCH (20:37)
[2016-11-14] MEDS: LEVOFLOXACIN 750 MG PREMIX INJ 150 ML IV SCH (20:39)
--- NOTE | 2016-11-14 21:28 | EKG ---
Date Performed: 11/13/2016 Time Performed: 22:00:03 PTAGE: 61 years EKG: SINUS TACHYCARDIA POSSIBLE LEFT ATRIAL ENLARGEMENT LOW QRS VOLTAGE IN PRECORDIAL LEADS ABNO RMAL RHYTHM ECG PREVIOUS TRACING : 11/13/2016 17.49 Compared to prior tracing no significant change DOCTOR: Nessa Lu Interpretating Date/Time 11/14/2016 21:27:27
--- NOTE | 2016-11-14 21:42 | EKG ---
Date Performed: 11/13/2016 Time Performed: 17:49:38 PTAGE: 61 years EKG: Sinus rhythm POSSIBLE LEFT ATRIAL ENLARGEMENT LOW QRS VOLTAGE IN PRECORDIAL LEADS BORDERLINE ECG PREVIOUS TRACING : 09/06/2015 14.02 Compared to prior tracing no significant change DOCTOR: Nessa Lu Interpretating Date/Time 11/14/2016 21:40:31
[2016-11-15] VITALS: BP 110/66; PULSE 96; RESP 18; TEMP 97.2; O2SAT 100
[2016-11-15] MEDS ORDERED: ACETAMINOPHEN/CODEINE 300 MG/30 MG TAB PO ONE (00:15)
[2016-11-15] MEDS: RESP: ALBUTEROL 2.5 MG/IPRATROPIUM 0.5 MG NEB (SCH) INH ×5 (00:39→16:44)
[2016-11-15 04:00] VITALS: BP 111/63; PULSE 100; RESP 20; TEMP 97.9; O2SAT 100
[2016-11-15] MEDS: CHLORHEXIDINE GLUCONATE 2 % 1 PACK (2 CLOTHS) TOP SCH (04:00)
[2016-11-15 05:26] LABS: ALT (GPT) 8 U/L (12-78); ANION GAP 5 MEQ/L (5-15); AST (GOT) 12 U/L (15-37); BICARBONATE 29.9 MEQ/L (21.0-32.0); BLOOD UREA NITROGEN 7 MG/DL (7-18); CHLORIDE 104 MEQ/L (98-107); GLOMERULAR FILTRATION RATE 170 ML/MIN (>89); POTASSIUM 3.2 MEQ/L (3.5-5.1); SODIUM (NA) 139 MEQ/L (136-145)
[2016-11-15 05:27] LABS: ALKALINE PHOSPHATASE 121 U/L (45-117); TOTAL BILIRUBIN ADULT 0.4 MG/DL (0.2-1.0)
[2016-11-15 05:40] LABS: AUTOMATED NEUTROPHIL # 2.5 TH/MM3 (1.8-7.7); BASOPHIL # 0.4 TH/MM3 (0-0.2); BASOPHIL % 9.8 % (0.0-2.0); EOSINOPHIL % 1.2 % (0.0-4.0); HEMATOCRIT 28.1 % (39.0-51.0); LYMPH % 19.9 % (9.0-44.0); LYMPHOCYTE # 0.8 TH/MM3 (1.0-4.8); MEAN CELL VOLUME 89.1 FL (80.0-100.0); MEAN CORPUSCULAR HEMOGLOBIN 29.6 PG (27.0-34.0); MEAN CORPUSCULAR HGB CONC 33.3 % (32.0-36.0); MONO % 8.6 % (0.0-8.0); NEUT % 60.5 % (16.0-70.0); PLATELET COUNT 119 TH/MM3 (150-450); RED BLOOD COUNT 3.16 MIL/MM3 (4.50-5.90); RED CELL DISTRIBUTION WIDTH 28.8 % (11.6-17.2); WHITE BLOOD COUNT 4.1 TH/MM3 (4.0-11.0)
[2016-11-15 06:00] LABS: HEMO FLAGS AUTO DIFF
[2016-11-15 08:36] LABS: BANDS 1 % (0-6); BASOPHILS 1 % (0-2); CORRECTED NUCLEATED RBC 1 /100 WBC (0-0); EOSINOPHILS 2 % (0-4); METAMYELOCYTES 1 % (0-1); MYELOCYTES 1 % (0-0); PLATELET ESTIMATE SMEAR LOW (NORMAL); PLATELET MORPHOLOGY NORMAL (NORMAL); POLYS (SEG NEUTROPHILS) 71 % (16-70); SCAN/DIFF FINAL DIFF MANUAL; WBC DIFF SAMPLE 100
[2016-11-15 08:37] LABS: TARGET CELLS 1+ (NORMAL)
[2016-11-15 08:38] LABS: ACANTHOCYTES OCC (NORMAL); KERATOCYTES OCC (NORMAL)
[2016-11-15] MEDS ORDERED: ASCORBIC ACID 500 MG TAB PO SCH (09:00)
[2016-11-15 09:15] VITALS: O2SAT 100
[2016-11-15] MEDS: DOCUSATE SODIUM 50 MG/SENNA 8.6 MG TAB PO SCH (11:34)
[2016-11-15] MEDS: THIAMINE INJ 100 MG in SODIUM CHLORIDE 0.9% INJ 100 ML IV SCH (11:34)
[2016-11-15] MEDS: PANTOPRAZOLE SODIUM 40 MG VIAL IV PUSH SCH (11:35)
[2016-11-15] MEDS: MULTIVITAMIN TAB PO SCH (11:35)
[2016-11-15] MEDS: FOLIC ACID 1 MG TAB PO SCH (11:35)
[2016-11-15] MEDS: SODIUM CHLORIDE 0.9% FLUSH 10 ML FLUSH IV FLUSH SCH (11:36)
[2016-11-15] MEDS: BUDESONIDE-FORMOTEROL 160/4.5 MCG INHALER INH SCH (11:39)
[2016-11-15 12:45] VITALS: BP 99/59; PULSE 116; RESP 16; TEMP 97.5; O2SAT 100
[2016-11-15] MEDS: ACETAMINOPHEN/HYDROcodone 325 MG/5 MG TAB PO PRN ×2 (12:52→19:41)
[2016-11-15 16:07] VITALS: BP 124/70; PULSE 110; RESP 18; TEMP 96.8; O2SAT 95
--- NOTE | 2016-11-15 16:17 | HHI.GIFU ---
Subjective Remarks Up in chair. Denies any obvious active bleeding. Concerned that his chronic hip pain is not controlled and that is why he is taking large amounts of aspirin at home. No stools today. D/W patient EGD, still refusing. (Nikki Waters) Objective Vitals I&O Vital Signs Date Time Temp Pulse Resp B/P (MAP) Pulse Ox O2 Delivery O2 Flow Rate FiO2 11/15/16 12:45 97.5 116 16 99/59 (72) 100 11/15/16 09:15 100 Nasal Cannula 2.00 11/15/16 04:00 97.9 100 20 111/63 (79) 100 11/15/16 00:00 97.2 96 18 110/66 (81) 100 11/14/16 20:51 96 Nasal Cannula 2.00 11/14/16 20:00 96.7 113 20 104/63 (77) 99 I/O 11/14/16 11/14/16 11/14/16 11/15/16 11/15/16 11/15/16 07:00 15:00 23:00 07:00 15:00 23:00 Intake Total 1438 ml 240 ml 700 ml Output Total 600 ml 500 ml 725 ml 400 ml Balance 838 ml -500 ml -485 ml 300 ml Intake Oral 240 ml 240 ml 700 ml IV Total 388 ml Packed Cells 500 ml Blood Product IV Normal Saline Flush 310 ml Output Urine Total 600 ml 500 ml 725 ml 400 ml # Bowel Movements 0 Laboratory Laboratory Tests Test 11/15/16 04:39 White Blood Count 4.1 Red Blood Count 3.16 Hemoglobin 9.4 Hematocrit 28.1 Mean Corpuscular Volume 89.1 Mean Corpuscular Hemoglobin 29.6 Mean Corpuscular Hemoglobin Concent 33.3 Red Cell Distribution Width 28.8 Platelet Count 119 Mean Platelet Volume 8.6 Neutrophils (%) (Auto) 60.5 Lymphocytes (%) (Auto) 19.9 Monocytes (%) (Auto) 8.6 Eosinophils (%) (Auto) 1.2 Basophils (%) (Auto) 9.8 Neutrophils # (Auto) 2.5 Lymphocytes # (Auto) 0.8 Monocytes # (Auto) 0.4 Eosinophils # (Auto) 0.0 Basophils # (Auto) 0.4 CBC Comment AUTO DIFF Differential Total Cells Counted 100 Neutrophils % (Manual) 71 Band Neutrophils % 1 Lymphocytes % 19 Monocytes % 4 Eosinophils % 2 Basophils % 1 Neutrophils # (Manual) 3.0 Metamyelocytes 1 Myelocytes 1 Nucleated Red Blood Cells 1 Differential Comment FINAL DIFF MANUAL Platelet Estimate LOW Platelet Morphology Comment NORMAL Target Cells 1+ Acanthocytes OCC Keratocytes OCC Blood Urea Nitrogen 7 Creatinine 0.50 Random Glucose 119 Total Protein 5.1 Albumin 2.2 Calcium Level 7.9 Alkaline Phosphatase 121 Aspartate Amino Transf (AST/SGOT) 12 Alanine Aminotransferase (ALT/SGPT) 8 Total Bilirubin 0.4 Sodium Level 139 Potassium Level 3.2 Chloride Level 104 Carbon Dioxide Level 29.9 Anion Gap 5 Estimat Glomerular Filtration Rate 170 Date/Time Source Procedure Growth Status 11/14/16 04:56 Blood Peripheral Aerobic Blood Culture - Preliminary NO GROWTH IN 1 DAY Resulted 11/14/16 04:56 Blood Peripheral Anaerobic Blood Culture - Preliminary NO GROWTH IN 1 DAY Resulted 11/14/16 03:45 Urine Clean Catch Legionella Antigen - Final PRESUMPTIVE NEGATIVE FOR LEGIONELLA P... Complete 11/14/16 03:45 Urine Clean Catch Streptococcus pneumoniae Antigen (M - Final PRESUMPTIVE NEGATIVE FOR STREPTOCOCCU... Complete Imaging Last Impressions Chest X-Ray 11/13/16 1737 Signed Impressions: Service Date/Time: Sunday, November 13, 2016 17:58 - CONCLUSION: No acute findings. Jose Francois MD Lower Extremity Ultrasound 11/13/16 0000 Signed Impressions: Service Date/Time: Sunday, November 13, 2016 17:57 - CONCLUSION: No DVT of either lower extremity. Jose Francois MD Head CT 11/13/16 0000 Signed Impressions: Service Date/Time: Sunday, November 13, 2016 19:49 - CONCLUSION: Negative noncontrast head CT. Jose Francois MD Physical Exam HEENT: Normocephalic; atraumatic; no jaundice. CHEST: Respirations shallow/mildly labored with speaking. Diminished CARDIAC: RRR ABDOMEN: Soft, nondistended, nontender; no hepatosplenomegaly; bowel sounds are present in all four quadrants. EXTREMITIES: No clubbing, cyanosis, or edema. SKIN: Normal; no rash; no jaundice. USER EXPERIENCE ANALYST: No focal deficits; alert and oriented times three. (Nikki Waters) Assessment and Plan Plan ASSESSMENT: - Anemia with dark stool and significant ASA use. Pt has been evaluated for anemia in past with EGD/Colonoscopy/Capsule endoscopy about 14 months ago (unremarkable per patient). Of note, he had dark stool yesterday and takes Anacin almost on a daily basis with 5-6 per day on some days. HH 8.4/24.2 on admission. Iron 97, TIBC 228, Iron Saturation 42.5, Ferritin 208. We will obtain records from past GI workup. D/W patient further evaluation with EGD, but he is adamantly refusing all invasive procedures, especially EGD. Hemoccult ordered, has not had a bowel movement today. S/P 2 units PRBC. HH 9.4/ 28.1. - GERD. PPI - Constipation, secondary to chronic opiate use. - Chronic respiratory failure/COPD/Hx non small cell carcinoma (s/p chemo/rdx 5 years ago). On 2.5L O2 via n/c at home- continues to smoke 7 cigarettes per day. Levaquin, symbicort, - Elevated glucose, CHF, per attending. PLAN: - Heart healthy diet - Cont. Protonix 40mg IV BID - Vitamin C - Hemoccult x 3 - Monitor HH - Transfuse as necessary - Consult Dr. Santana, patient known to you - Obtain records EGD/Colonoscopy/Capsule endoscopy from Dr. Warner's office - Recommend EGD to evaluate for PUD. Pt is refusing at this time. - Supportive care - Further recommendations to follow based on results of above - PT seen and examined by Dr. Unger and myself and this note is written on her behalf (Nikki Waters) Physician Comments seen, examined agree with above hematology consult call gi if patietn agrees with egd gi will sign off for now as he is refusing gi work-up (Sara Unger MD) Nikki Waters Nov 15, 2016 16:17 Sara Unger MD Nov 15, 2016 16:54
[2016-11-15] MEDS ORDERED: PERC7.5T13 PO (17:57)
[2016-11-15] MEDS ORDERED: PANT40TA3 PO (17:57)
[2016-11-15] MEDS ORDERED: VITA250C3 CHEW (17:57)
[2016-11-15] MEDS ORDERED: FERR325T8 PO (17:57)
[2016-11-15] MEDS ORDERED: LEVO750T3 PO (17:57)
--- NOTE | 2016-11-15 18:01 | HHI.DCPOC ---
Discharge Care Plan Goals to Promote Your Health * To prevent worsening of your condition and complications * To maintain your health at the optimal level avoid any medications w/ NSAIDS including but not limted to anacin, aspirin, aleve, ibuprofen, advil, naproxen, naprosyn, goody powders, BC powders, and titi seltzer. do not take any further tylenol since your pain medication already has some in it. If you feel that you have an infection in your lungs or are feeling feverish or coughing up more sputum, complete your course of levofloxacin. See your PCP to check your blood levels. Directions to Meet Your Goals Take your medications as prescribed Follow your dietary instruction Follow activity as directed Keep your appointments as scheduled Take your immunizations and boosters as scheduled If your symptoms worsen call your PCP, if no PCP go to Urgent Care Center or Emergency Room Smoking is Dangerous to Your Health. Avoid second hand smoke Call the 24-hour hour crisis hotline for domestic abuse at Altaf Arreola MD Nov 15, 2016 18:01
--- NOTE | 2016-11-15 18:14 | HHI.DS ---
Discharge Summary Admission Date Nov 13, 2016 at 19:32 Discharge Date: Nov 15, 2016 Admitting Diagnosis Chronic respiratory failure gi bleed (1) Thrombocytopenia ICD Code: D69.6 - Thrombocytopenia, unspecified Diagnosis: Principal (2) Acute blood loss anemia ICD Code: D62 - Acute posthemorrhagic anemia Diagnosis: Principal (3) Hypoglycemia ICD Code: E16.2 - Hypoglycemia, unspecified Diagnosis: Principal (4) Elevated partial thromboplastin time (PTT) ICD Code: R79.1 - Abnormal coagulation profile Diagnosis: Principal (5) Hyponatremia ICD Code: E87.1 - Hypo-osmolality and hyponatremia Diagnosis: Secondary (6) GI bleed ICD Code: K92.2 - Gastrointestinal hemorrhage, unspecified Diagnosis: Principal Status: Acute (7) Alcoholism ICD Code: F10.20 - Alcoholism Diagnosis: Principal Status: Acute (8) Tobacco dependence syndrome Diagnosis: Principal Status: Chronic (9) Anxiety disorder Diagnosis: Principal Status: Chronic (10) Non-small cell lung cancer Diagnosis: Principal Status: Chronic (11) Shortness of breath ICD Code: R06.02 - Shortness of breath Diagnosis: Principal Status: Acute (12) Hypertension ICD Code: I10 - Hypertension Diagnosis: Principal Status: Chronic (13) Systolic CHF ICD Code: I50.20 - Systolic CHF Diagnosis: Principal Status: Chronic (14) Lower extremity edema ICD Code: R60.0 - Localized edema Diagnosis: Principal (15) Chronic systolic heart failure ICD Code: I50.22 - Chronic systolic (congestive) heart failure Diagnosis: Principal (16) Gastroesophageal reflux disease ICD Code: K21.9 - Gastro-esophageal reflux disease without esophagitis Diagnosis: Principal (17) Chronic respiratory failure ICD Code: J96.10 - Chronic respiratory failure, unspecified whether with hypoxia or hypercapnia Diagnosis: Principal Procedures none Brief History - From Admission 61-year-old male. Date of admission 11/13/2016. Past medical history includes chronic systolic heart failure ejection fraction 3035%, COPD on 2.5 L chronic oxygen, prior tobaccoism, stage III poorly differentiated non-small cell carcinoma along right sided osteoarthritis, anxiety, CBC/BMP: 11/15/16 0439 11/15/16 0439 Significant Findings Laboratory Tests Test 11/13/16 17:56 11/13/16 19:40 11/13/16 21:45 11/14/16 03:45 Red Blood Count 2.70 MIL/MM3 (4.50-5.90) Hemoglobin 8.4 GM/DL (13.0-17.0) Hematocrit 24.2 % (39.0-51.0) Red Cell Distribution Width 34.1 % (11.6-17.2) Platelet Count 145 TH/MM3 (150-450) Monocytes (%) (Auto) 11.2 % (0.0-8.0) Basophils (%) (Auto) 7.3 % (0.0-2.0) Basophils # (Auto) 0.4 TH/MM3 (0-0.2) Platelet Morphology Comment ENLARGED (NORMAL) Acanthocytes 1+ (NORMAL) Prothrombin Time 12.3 SEC (9.8-11.6) Activated Partial Thromboplast Time 35.4 SEC (24.3-30.1) Random Glucose 67 MG/DL (74-106) Total Protein 6.0 GM/DL (6.4-8.2) Albumin 2.8 GM/DL (3.4-5.0) Calcium Level 8.3 MG/DL (8.5-10.1) Alkaline Phosphatase 161 U/L (45-117) Alanine Aminotransferase (ALT/SGPT) 11 U/L (12-78) Sodium Level 128 MEQ/L (136-145) Chloride Level 92 MEQ/L (98-107) Total Iron Binding Capacity 228 MCG/DL (250-450) Troponin I LESS THAN 0.02 NG/ML B-Type Natriuretic Peptide 169 PG/ML (0-100) Urine Glucose (UA) 70 mg/dL (NEG) Test 11/14/16 04:56 11/15/16 04:39 White Blood Count 2.7 TH/MM3 (4.0-11.0) Red Blood Count 3.46 MIL/MM3 (4.50-5.90) 3.16 MIL/MM3 (4.50-5.90) Hemoglobin 10.3 GM/DL (13.0-17.0) 9.4 GM/DL (13.0-17.0) Hematocrit 30.6 % (39.0-51.0) 28.1 % (39.0-51.0) Red Cell Distribution Width 29.5 % (11.6-17.2) 28.8 % (11.6-17.2) Neutrophils (%) (Auto) 73.0 % (16.0-70.0) Basophils (%) (Auto) 9.3 % (0.0-2.0) 9.8 % (0.0-2.0) Lymphocytes # (Auto) 0.4 TH/MM3 (1.0-4.8) 0.8 TH/MM3 (1.0-4.8) Basophils # (Auto) 0.3 TH/MM3 (0-0.2) 0.4 TH/MM3 (0-0.2) Neutrophils % (Manual) 77 % (16-70) 71 % (16-70) Myelocytes 5 % (0-0) 1 % (0-0) Nucleated Red Blood Cells 1 /100 WBC (0-0) 1 /100 WBC (0-0) Platelet Morphology Comment ENLARGED (NORMAL) Prothrombin Time 12.8 SEC (9.8-11.6) Activated Partial Thromboplast Time 34.8 SEC (24.3-30.1) Random Glucose 255 MG/DL (74-106) 119 MG/DL (74-106) Total Protein 5.7 GM/DL (6.4-8.2) 5.1 GM/DL (6.4-8.2) Albumin 2.4 GM/DL (3.4-5.0) 2.2 GM/DL (3.4-5.0) Calcium Level 7.8 MG/DL (8.5-10.1) 7.9 MG/DL (8.5-10.1) Alkaline Phosphatase 158 U/L (45-117) 121 U/L (45-117) Aspartate Amino Transf (AST/SGOT) 8 U/L (15-37) 12 U/L (15-37) Alanine Aminotransferase (ALT/SGPT) 9 U/L (12-78) 8 U/L (12-78) Sodium Level 133 MEQ/L (136-145) Chloride Level 97 MEQ/L (98-107) Platelet Count 119 TH/MM3 (150-450) Monocytes (%) (Auto) 8.6 % (0.0-8.0) Platelet Estimate LOW (NORMAL) Target Cells 1+ (NORMAL) Creatinine 0.50 MG/DL (0.60-1.30) Potassium Level 3.2 MEQ/L (3.5-5.1) Imaging Last Impressions Chest X-Ray 11/13/16 1737 Signed Impressions: Service Date/Time: Sunday, November 13, 2016 17:58 - CONCLUSION: No acute findings. Jose Francois MD Lower Extremity Ultrasound 11/13/16 0000 Signed Impressions: Service Date/Time: Sunday, November 13, 2016 17:57 - CONCLUSION: No DVT of either lower extremity. Jose Francois MD Head CT 11/13/16 0000 Signed Impressions: Service Date/Time: Sunday, November 13, 2016 19:49 - CONCLUSION: Negative noncontrast head CT. Jose Francois MD PE at Discharge No acute distress Ambulating without difficulty Right-sided lung west with coarse breath sounds, left side clear, adequate breath sounds bilaterally Heart sounds are regular rate and rhythm, no murmurs Hospital Course Patient was admitted to the intensive care unit, started on IV Protonix. He was started on Levaquin for empiric coverage of possible bronchitis/pneumonia, however his borderline low blood pressures had improved after the transfusion and they thought that this was due to his GI bleed. GI was consulted and recommended endoscopy but the patient refused. He had received transfusion with stabilization of his blood counts. Patient was transitioned to the regular floor clinically stable condition, was tolerating by mouth intake well while maintaining his blood count. He had normal bowel movements with no dark stools or hematochezia noted any further. Patient's blood pressure had also stabilized after his transfusion, remained afebrile throughout his hospitalization. urinary antigens for legionella and streptococcal pneumonia were negative. Patient had met maximum benefit from hospitalization and is clinically stable for discharge. He was counseled extensively on avoiding NSAID medications and was told that he would need to follow up with his PCP and have his blood counts repeated. As also told to avoid taking any extra doses of Tylenol since his pain medication will have Tylenol in it. The ultimate clinical judgment was that the patient did not have an infection and he was given a prescription for Levaquin should he feel feverish and was instructed to contact his PCP if so. He was also counseled that if his blood counts did indeed drop in his clinic follow-up, and endoscopy would be imperative. Patient has vocalized understanding. Pt Condition on Discharge: Stable Discharge Disposition: Discharge Home Discharge Time: > 30 minutes Discharge Instructions DIET: Follow Instructions for: Heart Healthy Diet Activities you can perform: Weight Bearing as Johnnie Other Activity Instructions: avoid any medications w/ NSAIDS including but not limted to anacin, aspirin, aleve, ibuprofen, advil, naproxen, naprosyn, goody powders, BC powders, and titi seltzer. do not take any further tylenol since your pain medication already has some in it. Follow up Referrals: Gastroenterology - 3 Weeks with Sara Unger MD Oncology/Hematology - 2 Weeks with River Santana MD PCP Follow-up - 1 Week New Medications: Ascorbic Acid (Vitamin C) 250 Mg Chew 250 MG CHEW TID for Nutritional Supplement, #90 TAB 0 Refills take w/ iron pill Ferrous Sulfate (Ferrous Sulfate) 325 Mg (65 Mg Iron) Tablet 325 MG PO TIDPC for Nutritional Supplement, #90 TAB 0 Refills Levofloxacin (Levofloxacin) 750 Mg Tablet 750 MG PO DAILY for Infection, #7 TAB 0 Refills Oxycodone-Acetaminophen (Percocet) 7.5-325 mg Tab 1 TAB PO Q8HR PRN for PAIN, #90 TAB 0 Refills do not operate heavy machinery or drive when taking medication Pantoprazole (Pantoprazole) 40 Mg Tab 40 MG PO BID for Reflux, #60 TAB 0 Refills Continued Medications: Furosemide (Lasix) 20 Mg Tab 20 MG PO DAILY, #30 TAB 0 Refills Metoprolol Tartrate (Metoprolol Tartrate) 25 Mg Tab 25 MG PO DAILY for Blood Pressure Management, #30 TAB 0 Refills Mirtazapine (Mirtazapine) 15 Mg Tab 15 MG PO HS for Depression Control, #30 TAB 0 Refills Discontinued Medications: Hydrocodone-Acetaminophen (Lortab) 5-325 Mg Tab 1 TAB PO Q6H PRN for PAIN, TAB 0 Refills Altaf Arreola MD Nov 15, 2016 18:14
--- NOTE | 2016-11-16 09:26 | MB ---
cc: SHARON JUÁREZ DATE OF CONSULTATION 11/14/2016 DATE OF 1955 REASON FOR CONSULTATION Patient with anemia. HISTORY OF PRESENT ILLNESS This is a 61-year-old male who has a past medical history of stage III lung cancer diagnosed in 2011. He received concurrent chemotherapy and radiation treatments. He achieved remission and has been closely monitored in our oncology clinic. His other medical problems include: 1. COPD and supplemental oxygen use at home 2. History of chronic bronchitis. 3. He also has a history of alcohol abuse with recurrent pancreatitis in the past. However, he has been abstaining from alcohol consumption for quite some time. 4. He has a history of chronic pain and he was referred to pain management to address his chronic pain issues. 5. He now presented to the emergency room with increasing shortness of breath and generalized weakness. 6. He was found to be anemic with a hemoglobin of 8.4. 7. He has had an EGD and colonoscopy in the past. 8. He also has undergone a capsule endoscopy. 9. He endorses having dark colored stools. He has not noticed any bright red blood per rectum. 10. He admits to alcohol use however, denies drinking alcohol excessively. A stool hemoccult has been ordered which is pending. He was given two units of packed red blood cells and his hemoglobin has increased to 10.3. He had iron studies on admission which showed a normal serum iron and iron saturation Ferritin was 208. His total bilirubin was normal at 0.2. He had a chest x-ray on this admission which did not show any acute findings. He also had a CT of the head which was negative. The patient had a Doppler ultrasound of the lower extremities which did not show any lower extremity DVT. REVIEW OF SYSTEMS A comprehensive 14-point review of systems was completed which is negative except as described in the HPI. PAST MEDICAL HISTORY 1. History of stage III lung cancer status post radiation and chemotherapy five years ago. 2. Anemia 3. Arthritis 4. Chronic pain 5. Headaches 6. Gastroesophageal reflux disease 7. CHF 8. COPD 9. History of alcohol abuse. PAST SURGICAL HISTORY 1. Port placement 2. EEG 3. Colonoscopy capsule 4. Endoscopy 5. Vasectomy ALLERGIES HE IS ALLERGIC TO PENICILLIN G MEDICATIONS 1. Lasix 20 mg daily 2. Mirtazapine 15 mg p.o. q.h.s. 3. Tylenol with Codeine 1-2 tablets p.o. q.6 h p.r.n. 4. Lortab 5/325 one tablet p.o. q.6 h p.r.n. 5. Metoprolol 25 mg p.o. daily FAMILY HISTORY Significant for valvular heart disease and coronary artery disease. SOCIAL HISTORY He smokes seven cigarettes per week. Admits to drinking alcohol occasionally, but does not endorse any excessive alcohol use. He denies any illicit drug use. PHYSICAL EXAM VITAL SIGNS: Blood pressure is 95/58, pulse in the 90s, temperature is 98.2, O2 sats are 100% on two liters of nasal cannula. GENERAL: A well-developed, well-nourished male in no apparent distress. HEENT: Pupils are equal, round and reactive to light. EOMI. No oral thrush or lesions. NECK: Supple. No JVD, no bruits or lymphadenopathy. CHEST: Clear to auscultation bilaterally. CARDIAC: S1-S2 regular rate and rhythm. ABDOMEN: Soft, nontender, nondistended. Bowel sounds are present. EXTREMITIES: Without any edema, erythema or cyanosis. SKIN: Without any petechiae, lesion or bruises. NEUROLOGIC: No focal deficits. PSYCHIATRIC: Mood and affect is appropriate. LABORATORY DATA WBC is 2.7, hemoglobin is 10.3, platelet count is 161, MCV is 88.5. Serum chemistries show a sodium of 128, potassium 3.6, chloride 92, BUN 7, creatinine 0.75, GFR 106, AST 18, ALT is 11, alk phos is 161, total protein 6, albumin 2.8. IMAGING Imaging was reviewed in the EMR. ASSESSMENT/PLAN This is a 61-year-old male who has a history of [id number] lung cancer, stage III disease treated with concurrent chemotherapy and radiation treatments and achieved remission. He was closely monitored. He now presents with acute dyspnea and weakness and was found to have a hemoglobin in the low eight range. 1. Acute symptomatic anemia with a hemoglobin in the low 8 range. He is status post two units of packed red blood cells. He needs a GI evaluation. We need to make sure that he does not have any underlying GI bleeding. GI has been seeing the patient. I will defer further workup to them. Anemia studies were obtained on admission which showed an iron of 97, TIBC 228 and percent saturation of 42.5. Ferritin is 208. It is not iron deficient. We will check B12 and folate levels. There is no overt evidence of hemolysis. His total bilirubin is normal. We will check an LDH and haptoglobin levels. Upon review of records, he was checked for hepatitis B and C in 2012 and was negative. If no source of GI bleeding is found, the patient will need a bone marrow biopsy. This can be completed as an outpatient. We need to make sure that his hemoglobin is stable before he is discharged from the hospital. 2. Stage II lung cancer status post concurrent chemotherapy and radiation treatments. He has had a chest x-ray which did not reveal any mass. Given that he has a history of lung cancer and new onset of anemia, I may consider obtaining a CT of the chest, abdomen and pelvis. 3. Mild thrombocytopenia with a platelet count of 119,000. We will continue to monitor. Thank you for allowing me to participate in the care of this patient. I will continue to follow this patient along. MD JOHANNA Haley/GEORGE /6:28 PM /9:01 AM
[2016-12-12] MEDS ORDERED: HYDR-3535 PO (13:02)
[2016-12-12] MEDS ORDERED: DIAZ5 PO (13:03)
[2016-12-13] MEDS ORDERED: ALBU0.63 NEB (10:38)
[2016-12-13] MEDS ORDERED: SYMB80AE INH (10:38)
[2016-12-13] MEDS ORDERED: SPIRCAP INH (10:38)
[2016-12-13] MEDS ORDERED: VENTAER INH (10:40)
== END 2016-11-15 20:08 | disposition home or self-care (01) | DRG 378 ==
LOC: NEPC 17:16 → NEDA 19:32 → HIMN 20:35 → HOCB 11-14 13:25
PROVIDERS: ADMIT Hospitalist; ATTEND Hospitalist
PROC: 30233N1 Transfusion of Nonautologous Red Blood Cells into Peripheral Vein, Percutaneous Approach (ICD-10-PCS; principal; 2016-11-13)
DX: K92.2 Gastrointestinal hemorrhage, unspecified (principal); I50.22 Chronic systolic (congestive) heart failure; J96.11 Chronic respiratory failure with hypoxia; I11.0 Hypertensive heart disease with heart failure; I95.9 Hypotension, unspecified; E87.1 Hypo-osmolality and hyponatremia; D69.6 Thrombocytopenia, unspecified; D62 Acute posthemorrhagic anemia; F32.9 Major depressive disorder, single episode, unspecified; Z99.81 Dependence on supplemental oxygen; F17.210 Nicotine dependence, cigarettes, uncomplicated; J44.9 Chronic obstructive pulmonary disease, unspecified; F41.9 Anxiety disorder, unspecified; K21.9 Gastro-esophageal reflux disease without esophagitis; K59.03 Drug induced constipation; M19.90 Unspecified osteoarthritis, unspecified site; E16.2 Hypoglycemia, unspecified; M81.0 Age-related osteoporosis without current pathological fracture; G89.29 Other chronic pain; R29.6 Repeated falls; T40.605A Adverse effect of unspecified narcotics, initial encounter; M25.559 Pain in unspecified hip; Z92.21 Personal history of antineoplastic chemotherapy; Z85.118 Personal history of other malignant neoplasm of bronchus and lung; Z92.3 Personal history of irradiation; Z79.891 Long term (current) use of opiate analgesic
CPT/HCPCS: 36430; 70450; 71010; 80053; 81001; 82728; 83540; 83550; 83605; 83735; 83880; 84100; 84484; 85007; 85025; 85027; 85044; 85060; 85610; 85730; 86850; 86900; 86901; 86920; 87040; 87449; 87641; 93005; 93306; 93970; 94150; 94640; 94664; 96374; C9113; J1956; J2930; J3411; J7030; J7050; P9016

== ENCOUNTER → 2016-12-13 | Outpatient (CLI) | payer OTHER ==
[~2016-12-13] VITALS: Ht 180.3 cm; Wt 76.5 kg
[~2016-12-13] MED LIST changes: +ALBU0.63 NEB; +CHLORHEXIDINE GLUCONATE 2 % 1 PACK (2 CLOTHS) TOPICAL PRN; +DIAZ5 PO; +DO NOT ADM ANY ANTICOAGULANT DRUGS PRN; +FUROSEMIDE 20 MG/2 ML VIAL ONE; -HYDR-3533 PO; +HYDR-3535 PO; +INSULIN HUMAN REGULAR 1,000 UNITS/10 ML VIAL SQ PRN; +LACTATED RINGER'S 1000 ML INJ 1,000 ML ONE; +LACTATED RINGER'S 1000 ML IV PRN; -METO25TA3 PO; +METOPROLOL TARTRATE 25 MG TAB PO PRN; +MIRTA15 PO; +PANT40TA3 PO; +PHENYLEPH/NS 1000 MCG/10 ML SYR ONE; +POVIDONE IODINE 5% (ANTISEPSIS KIT) 4 APPLICATIONS EACH NARE PRN; +PROPOFOL 200 MG/20 ML AMP ONE; +RESP: ALBUTEROL 2.5 MG/IPRATROPIUM 0.5 MG NEB (SCH) ONE; +SODIUM CHLORID 0.9% 500 ML IV PRN; +SPIRCAP INH; +SYMB80AE INH; -TYLETAB34 PO; +VENTAER INH; +VITA250C3 CHEW
--- NOTE | 2016-12-13 12:52 | GIPROC ---
[facility] [address] [facility]. [facility], [address] EGD PROCEDURE REPORT EXAM DATE: 12/13/2016 PATIENT NAME: David Inman MR #: [id number] BIRTHDATE: 1955 ATTENDING: Ericka Bobby MD ORDER #: [id number] BACK CLOSER: Merritt Manzanares Pat STATUS: outpatient INDICATIONS: The patient is a 61 yr old male here for an EGD due to iron deficiency anemia PROCEDURE PERFORMED: EGD w/ biopsy MEDICATIONS: None and Per Anesthesia. TOPICAL ANESTHETIC: CONSENT: The patient understands the risks and benefits of the procedure and understands that these risks include, but are not limited to: sedation, allergic reaction, infection, perforation and/or bleeding. Alternative means of evaluation and treatment include, among others: physical exam, x-rays, and/or surgical intervention. The patient elects to proceed with this endoscopic procedure. medical equipment was checked for proper function. Hand hygiene and appropriate measures for infection prevention was taken. After the risks, benefits and alternatives of the procedure were thoroughly explained, Informed consent was verified, confirmed and timeout was successfully executed by the treatment team. The patient was anesthetized with topical anesthesia and the [id number] (Pedi C) endoscope was introduced through the mouth and advanced to the second portion of the duodenum. Retroflexed views revealed no abnormalities The gastroscope was then slowly withdrawn and removed. ESOPHAGUS: Tightening mid esophagus, dilated with scope. STOMACH: There was erythematous moderate gastritis in the gastric antrum. A biopsy was performed using cold forceps. Sample sent for histology. DUODENUM: The duodenal mucosa appeared normal in the bulb and second portion of the duodenum. ADVERSE EVENTS: There were no complications. IMPRESSIONS: 1. Tightening mid esophagus, dilated with scope 2. There was erythematous gastritis in the gastric antrum; biopsy was performed 3. Normal duodenal mucosa in the bulb and second portion of the duodenum 4. Retroflexed views revealed no abnormalities RECOMMENDATIONS: 1. Await biopsy results. Biopsy results will not be ready for 7-10 days. If you don't hear from us in two weeks, call our office for biopsy results. 2. Anti-reflux regimen 3. Avoid NSAIDS 4. Xray: UGI SERIES PATIENT CONDITION: stable DISPOSITION: Home REPEAT EXAM: Return 1 year EGD pending biopsy results Ericka Bobby MD eSigned: Ericka Bobby MD 12/13/2016 12:52 PM cc: Ney Sawyer M.D. PATIENT NAME: David Inman MR#: [id number]
--- NOTE | 2016-12-13 12:55 | GIPROC ---
[facility] [address] [facility], [address] COLONOSCOPY PROCEDURE REPORT EXAM DATE: 12/13/2016 PATIENT NAME: David Inman MR #: [id number] BIRTHDATE: 1955 ENDOSCOPIST: Ericka Bobby MD ORDER #: [id number] ENGINEERING SECRETARY: Poonam Manzanares and Iza Young STATUS: outpatient INDICATIONS: The patient is a 61 yr old male here for a colonoscopy due to iron deficiency anemia PROCEDURE PERFORMED: Colonoscopy with biopsy MEDICATIONS: None and Per Anesthesia. PREP QUALITY: The [place] Bowel Prep Score was Right colon 2, Mid colon 3, and Left colon 3. Total = 8. PREP TYPE:GoLytely ESTIMATED BLOOD LOSS: None CONSENT: The patient understands the risks and benefits of the procedure and understands that these risks include, but are not limited to: sedation, allergic reaction, infection, perforation and/or bleeding. Alternative means of evaluation and treatment include, among others: physical exam, x-rays, and/or surgical intervention. The patient elects to proceed with this endoscopic procedure. medical equipment was checked for proper function. Hand hygiene and appropriate measures for infection prevention was taken. After the risks, benefits and alternatives of the procedure were thoroughly explained, Informed consent was verified, confirmed and timeout was successfully executed by the treatment team. A digital exam revealed external hemorrhoids The Pentax [id number] endoscope was introduced through the anus and advanced to the cecum, which was identified by both the appendix and ileocecal valve. The instrument was then slowly withdrawn as the colon was fully examined. COLON FINDINGS: A polypoid shaped sessile polyp ranging between 3-5mm in size was found in the sigmoid colon. A polypectomy was performed with cold forceps. The resection was complete and the polyp tissue was completely retrieved. Retroflexed views revealed internal hemorrhoids and Retroflexed views revealed small internal hemorrhoids The scope was then completely withdrawn from the patient and the procedure terminated. PROCEDURE WITHDRAWAL TIME:8minutes ADVERSE EVENTS: There were no complications. IMPRESSIONS: 1. A sessile polyp ranging between 3-5mm in size was found in the sigmoid colon; polypectomy was performed with cold forceps 2. Retroflexed views revealed internal hemorrhoids 3. Retroflexed views revealed small internal hemorrhoids 4. Revealed external hemorrhoids RECOMMENDATIONS: 1. Await biopsy results. Biopsy results will not be ready for 7-10 days. If you don't hear from us in two weeks, call our office for results. 2. Continue surveillance 3. Yearly hemoccult 4. Xray for Small bowel follow through RECALL: Return 5 years Colonoscopy, pending biopsy results Ericka Bobby MD eSigned: Ericka Bobby MD 12/13/2016 12:54 PM cc: Ney Sawyer M.D.
[2016-12-13 13:39] VITALS: BP 118/71; PULSE 110; RESP 20; TEMP 98; O2SAT 99
== END ==
LOC: HSDC 10:10
PROVIDERS: ATTEND Internal Medicine Gastroenterology
DX: D50.9 Iron deficiency anemia, unspecified (principal); D12.5 Benign neoplasm of sigmoid colon; K64.4 Residual hemorrhoidal skin tags; K64.8 Other hemorrhoids; K22.2 Esophageal obstruction; K29.70 Gastritis, unspecified, without bleeding
CPT/HCPCS: 00740; 00810; 43239; 45380; 88305; 88312; 94664; J1940; J7120; J2370

== ENCOUNTER 2016-12-17 12:11 | Inpatient (IN) | payer OTHER, MEDICARE ==
[2016-12-17] VITALS (9 sets, daily range): BP systolic 93–136; BP diastolic 58–72; PULSE 126–137; RESP 18–30; TEMP 97.9–98.5; O2SAT 77–97
[~2016-12-17] VITALS: Ht 180.3 cm; Wt 82.0 kg
[~2016-12-17 12:11] MED LIST changes: -CHLORHEXIDINE GLUCONATE 2 % 1 PACK (2 CLOTHS) TOPICAL PRN; -DO NOT ADM ANY ANTICOAGULANT DRUGS PRN; -FUROSEMIDE 20 MG/2 ML VIAL ONE; -INSULIN HUMAN REGULAR 1,000 UNITS/10 ML VIAL SQ PRN; -LACTATED RINGER'S 1000 ML INJ 1,000 ML ONE; -LACTATED RINGER'S 1000 ML IV PRN; -METOPROLOL TARTRATE 25 MG TAB PO PRN; -PHENYLEPH/NS 1000 MCG/10 ML SYR ONE; -POVIDONE IODINE 5% (ANTISEPSIS KIT) 4 APPLICATIONS EACH NARE PRN; -PROPOFOL 200 MG/20 ML AMP ONE; -RESP: ALBUTEROL 2.5 MG/IPRATROPIUM 0.5 MG NEB (SCH) ONE; -SODIUM CHLORID 0.9% 500 ML IV PRN
--- NOTE | 2016-12-17 15:09 | PD ---
HPI Chief Complaint: Respiratory Distress Time Seen by Provider: 15:01 Travel History International Travel<30 days: No Contact w/Intl Traveler<30days: No Traveled to known affect area: No History of Present Illness HPI 61-year-old male with history of lung cancer treated with radiation and chemotherapy only presents the emergency department with increasing shortness of breath, productive cough, wheezing, and bilateral pedal edema. Patient has history of CHF in the past. Patient states she recently had a colonoscopy last Saturday here in the hospital, and since that time he is at increased symptoms as stated. Patient denies fever, chills, or other symptoms. Patient states he has a nonoperable tumor in the right lung. Patient states he was told to increase his diuretic last week but did not. Patient states no significant pain other than from the swelling in the lower extremities. Pain is 7/10. He states generalized weakness and inability to ambulate. He has decreased appetite, and urine output. Patient has history of allergies to penicillin. PFSH Past Medical History Hx Anticoagulant Therapy: Yes (325MG ASA) Anemia: Yes Arthritis: No Asthma: Yes Autoimmune Disease: No Anxiety: Yes Depression: Yes Heart Rhythm Problems: No Cancer: Yes (LUNG CANCER ) Cardiovascular Problems: Yes (CHF) High Cholesterol: No Chemotherapy: Yes (2011) Chest Pain: Yes Congestive Heart Failure: Yes COPD: Yes (Wears O2 at night) Cerebrovascular Accident: No Diabetes: No Diminished Hearing: No Endocrine: No Gastrointestinal Disorders: Yes (GERD) GERD: Yes Genitourinary: No Headaches: Yes Hepatitis: No Hiatal Hernia: No Hypertension: Yes Immune Disorder: No Implanted Vascular Access Dvce: Yes (RIGHT CHEST PORT) Kidney Stones: No Musculoskeletal: No Neurologic: Yes (FALLS) Psychiatric: No Reproductive: No Respiratory: Yes (LUNG CA, COPD, VOICE HOARSE) Immunizations Current: Yes Migraines: No Pneumonia: Yes Radiation Therapy: Yes Renal Failure: No Seizures: No Sickle Cell Disease: No Thyroid Disease: No Ulcer: No Past Surgical History Abdominal Surgery: No AICD: No Arteriovenous Shunt: No Body Medical Devices: PORT SIDE INFUSAPORT Cardiac Surgery: No Ear Surgery: No Endocrine Surgery: No Eye Surgery: No Genitourinary Surgery: Yes (VASECTOMY) Hysterectomy: No Insulin Pump: No Joint Replacement: No Oral Surgery: No Pacemaker: No Thoracic Surgery: No Other Surgery: Yes (PORT RIGHT CHEST) Social History Alcohol Use: Yes (COUPLE DRINKS PER WEEK) Tobacco Use: Yes (5 CIGARETTES PER DAY) Substance Use: No Allergies-Medications (Allergen,Severity, Reaction): Coded Allergies: penicillin G (Unverified Allergy, Severe, ANAPHYLAXIS, 12/17/16) Reported Meds & Prescriptions Reported Meds & Active Scripts Active Vitamin C (Ascorbic Acid) 250 Mg Chew 250 Mg CHEW TID take w/ iron pill Pantoprazole (Pantoprazole Sodium) 40 Mg Tab 40 Mg PO BID Reported Ventolin Hfa 18 GM Inh (Albuterol Sulfate) 90 Mcg/Act Aer 2 Puff INH Q4H PRN Albuterol Neb (Albuterol Sulfate) 0.63 Mg/3 Ml Neb 0.63 Mg NEB Q4HR NEB PRN Symbicort Inh (Budesonide/Formoterol Fumarate) 80-4.5 Mcg/Act Aero 2 Puff INH Q12HR Spiriva Handihaler (Tiotropium Inh) 18 Mcg Cap 18 Mcg INH DAILY 1 capsule = 18 mcg Valium (Diazepam) 5 Mg Tab 5 Mg PO TID PRN Lortab (Hydrocodone-Acetaminophen) 10-325 Mg Tab 1 Tab PO Q4H PRN Mirtazapine 15 Mg Tab 15 Mg PO HS Review of Systems Except as stated in HPI: all other systems reviewed are Neg General / Constitutional: Positive: Weight Loss, No: Fever Eyes: No: Visual changes HENT: Positive: Lightheadedness, No: Headaches, Vertigo, Sore Throat, Rhinitis , Rhinorrhea, Congestion, Nosebleed, Neck Stiffness, Neck Pain, Dental Difficulties, Earache Cardiovascular: Positive: Tachycardia, Dyspnea on exertion, No: Chest Pain or Discomfort Respiratory: Positive: Cough, Shortness of Breath, Wheezing, Orthopnea, No: Sneezing, Hemoptysis, Stridor, Night Sweats, Pleuritic Pain, Other Gastrointestinal: Positive: Nausea, No: Vomiting, Diarrhea, Abdominal Pain Genitourinary: No: Dysuria Musculoskeletal: No: Myalgias, Arthralgias, Limited ROM, Pain Skin: No Rash Neurologic: No: Weakness Psychiatric: No: Depression Endocrine: No: Polydipsia Hematologic/Lymphatic: No: Easy Bruising Physical Exam Narrative GENERAL: Patient appears in mild to moderate respiratory distress. He is cachectic in appearance. SKIN: Warm and dry. Poor pallor. Poor turgor. Patient has numerous old ecchymosis areas to both forearms. HEAD: Atraumatic. Normocephalic. EYES: Pupils equal and round. No scleral icterus. No injection or drainage. ENT: No nasal bleeding or discharge. Mucous membranes pink and somewhat dry. Pharynx is clear. Airway is patent. NECK: Trachea midline. Nontender and supple. CARDIOVASCULAR: Tachycardic rate and normal rhythm. RESPIRATORY: No accessory muscle use. Diffuse wheezes, rales, rhonchi, and crackles to auscultation. Breath sounds equal bilaterally. GASTROINTESTINAL: Abdomen soft, non-tender, nondistended. Hepatic and splenic margins not palpable. MUSCULOSKELETAL: Extremities without clubbing, cyanosis, or edema. No obvious deformities. NEUROLOGICAL: Awake and alert. No obvious cranial nerve deficits. Motor grossly within normal limits. Five out of 5 muscle strength in the arms and legs. Normal speech. PSYCHIATRIC: Appropriate mood and affect; insight and judgment normal. Data Data Last Documented VS Vital Signs Date Time Temp Pulse Resp B/P (MAP) Pulse Ox O2 Delivery O2 Flow Rate FiO2 12/17/16 16:10 126 24 119/72 (88) Nasal Cannula 3.00 12/17/16 15:20 95 12/17/16 12:15 98.5 Orders Orders Complete Blood Count With Diff (12/17/16 15:) Comprehensive Metabolic Panel (12/17/16 15:) B-Type Natriuretic Peptide (12/17/16 15:09) Act Partial Throm Time (Ptt) (12/17/16 15:) Prothrombin Time / Inr (Pt) (12/17/16 15:) Magnesium (Mg) (12/17/16 15:09) Ckmb (Isoenzyme) Profile (12/17/16 15:) Troponin I (12/17/16 15:) Urinalysis - C+S If Indicated (12/17/16 15:) Iv Access Insert/Monitor (12/17/16 15:) Electrocardiogram (12/17/16 15:) Ecg Monitoring (12/17/16 15:) Oximetry (12/17/16 15:09) Oxygen Administration (12/17/16 15:09) Chest, Pa & Lat (12/17/16 15:) Sodium Chloride 0.9% Flush (Ns Flush) (12/17/16 15:15) Furosemide Inj (Lasix Inj) (12/17/16 15:15) Methylprednisolone So Succ Inj (Solumedr (12/17/16 15:15) Albuterol-Ipratropium Neb (Duoneb Neb) (12/17/16 15:15) Blood Culture (12/17/16 15:09) Ceftriaxone Inj (Rocephin Inj) (12/17/16 15:15) Azithromycin (Zithromax) (12/17/16 15:15) Sodium Chlorid 0.9% 500 Ml Inj (Ns 500 M (12/17/16 15:15) Potassium Chlor 20 Meq Premix (Kcl 20 Me (12/17/16 16:30) Admit Order (Ed Use Only) (12/17/16 18:42) Labs Laboratory Tests Test 12/17/16 15:10 12/17/16 16:35 12/17/16 16:40 12/17/16 17:35 Blood Urea Nitrogen 4 MG/DL Creatinine 0.53 MG/DL Random Glucose 162 MG/DL Total Protein 5.6 GM/DL Albumin 2.2 GM/DL Calcium Level 8.0 MG/DL Magnesium Level 1.5 MG/DL Alkaline Phosphatase 212 U/L Aspartate Amino Transf (AST/SGOT) 14 U/L Alanine Aminotransferase (ALT/SGPT) 9 U/L Total Bilirubin 0.7 MG/DL Sodium Level 128 MEQ/L Potassium Level 2.4 MEQ/L Chloride Level 89 MEQ/L Carbon Dioxide Level 29.5 MEQ/L Anion Gap 10 MEQ/L Estimat Glomerular Filtration Rate 159 ML/MIN Total Creatine Kinase 64 U/L Troponin I LESS THAN 0.02 NG/ML B-Type Natriuretic Peptide 127 PG/ML White Blood Count 9.0 TH/MM3 Red Blood Count 3.54 MIL/MM3 Hemoglobin 10.2 GM/DL Hematocrit 31.0 % Mean Corpuscular Volume 87.4 FL Mean Corpuscular Hemoglobin 28.9 PG Mean Corpuscular Hemoglobin Concent 33.1 % Red Cell Distribution Width 28.6 % Platelet Count 131 TH/MM3 Mean Platelet Volume 9.3 FL CBC Comment AUTO DIFF Differential Total Cells Counted 100 Neutrophils % (Manual) 75 % Band Neutrophils % 12 % Lymphocytes % 7 % Monocytes % 6 % Neutrophils # (Manual) 7.8 TH/MM3 Differential Comment FINAL DIFF MANUAL Platelet Estimate NORMAL Platelet Morphology Comment GIANT Acanthocytes 1+ Keratocytes 1+ Urine Color LIGHT-YELLOW Urine Turbidity CLEAR Urine pH 6.0 Urine Specific [place] 1.005 Urine Protein NEG mg/dL Urine Glucose (UA) NEG mg/dL Urine Ketones NEG mg/dL Urine Occult Blood NEG Urine Nitrite NEG Urine Bilirubin NEG Urine Urobilinogen LESS THAN 2.0 MG/DL Urine Leukocyte Esterase NEG Urine WBC 2 /hpf Microscopic Urinalysis Comment CULT NOT INDICATED Prothrombin Time 18.6 SEC Prothromb Time International Ratio 1.6 RATIO Activated Partial Thromboplast Time 43.6 SEC [facility] Medical Decision Making Medical Screen Exam Complete: Yes Emergency Medical Condition: Yes Medical Record Reviewed: Yes Differential Diagnosis Increased shortness of breath and cough. Pneumonia. History of lung cancer. Obstructing lesion. CHF. Electrolyte imbalance. Anemia. Renal failure. Bronchitis. Wheezing. Narrative Course Patient is medically stable at time of exam. Patient's port is accessed and labs ordered including CBC, CMP, cardiac panel, coagulation studies, lactic acid, blood cultures 2 and urinalysis. Chest x-ray PA and lateral is ordered. Patient is given Rocephin 1 g IV as well as 500 mg azithromycin by mouth. Patient is given DuoNeb every 15 minutes 3. Patient is given furosemide 80 mg IV once. Patient is given methylprednisone 125 mg by mouth 1. Patient is given 500 mL was normal saline bolus. Critical potassium of 2.7 is reported. Patient is started on 20 mEq KCl IV 2. Chest x-ray shows: 1. Masslike density involving the right upper lobe is more pronounced from the prior study. 2. Infiltrate throughout the left lung. 3. Cardiomegaly. 4. Tiny left effusion. CBC shows no significant leukocytosis. RBC of 3.54, hemoglobin 10.2, hematocrit of 31.0. CMP is significant for sodium 128, potassium 2.4, chloride of 89. BUN is 4, creatinine is 0.53, random glucose 164, alkaline phosphatase 212, troponin is less than 0.02. BNP is 127. Total protein is 5.6, albumin is 2.2. Patient discussed with Dr. Hassan who recommends admission. Patient discussed with Dr. Dontrell Conde will admit the patient. Diagnosis Primary Impression: Left pulmonary infiltrate on CXR Additional Impressions: Pleural effusion Hypokalemia Hyponatremia Non-small cell lung cancer Admitting Information Admitting Physician Requests: Admit Condition: Stable Shady Rubi Dec 17, 2016 15:09
[2016-12-17] MEDS ORDERED: FUROSEMIDE 100 MG/10 ML VIAL IVP ONE (15:15)
[2016-12-17] MEDS ORDERED: SODIUM CHLORIDE 0.9% FLUSH 10 ML FLUSH IVF PRN (15:15)
[2016-12-17] MEDS ORDERED: SODIUM CHLORID 0.9% 500 ML INJ 500 ML IV ONE (15:15)
[2016-12-17] MEDS ORDERED: AZITHROMYCIN 250 MG TAB PO ONE (15:15)
[2016-12-17] MEDS ORDERED: cefTRIAXone INJ 1,000 MG in SODIUM CHLORIDE 0.9% INJ 100 ML IV ONE (15:15)
[2016-12-17] MEDS ORDERED: methylPREDNISolone SOD SUCC 125 MG/2 ML VIAL IV PUSH ONE (15:15)
[2016-12-17] MEDS: RESP: ALBUTEROL 2.5 MG/IPRATROPIUM 0.5 MG NEB (SCH) INH ×2 (15:18→19:19)
[2016-12-17 16:22] LABS: ALKALINE PHOSPHATASE 212 U/L (45-117); ALT (GPT) 9 U/L (12-78); ANION GAP 10 MEQ/L (5-15); AST (GOT) 14 U/L (15-37); BICARBONATE 29.5 MEQ/L (21.0-32.0); CHLORIDE 89 MEQ/L (98-107); GLOMERULAR FILTRATION RATE 159 ML/MIN (>89); MAGNESIUM 1.5 MG/DL (1.5-2.5); SODIUM (NA) 128 MEQ/L (136-145); TOTAL BILIRUBIN ADULT 0.7 MG/DL (0.2-1.0)
[2016-12-17 16:23] LABS: CREATINE KINASE 64 U/L (39-308)
[2016-12-17 16:25] LABS: POTASSIUM 2.4 MEQ/L (3.5-5.1)
[2016-12-17 16:37] LABS: BLOOD UREA NITROGEN 4 MG/DL (7-18)
--- NOTE | 2016-12-17 16:54 | RADRPT ---
EXAM DATE/TIME: 12/17/2016 16:24 [place] COMPARISON: CHEST SINGLE AP, November 13, 2016, 17:58. CHEST PA & LAT, July 01, 2015, 17:32. INDICATIONS : Dizziness and shortness of breath. MEDICAL HISTORY : Carcinoma, lung. Chronic obstructive pulmonary disease. SURGICAL HISTORY : Infisaport. ENCOUNTER: Initial ACUITY: 4 - 6 days PAIN SCORE: 0/10 LOCATION: Bilateral chest FINDINGS: PA and lateral views of the chest show a mass like density involving the right upper lobe. This is mo re pronounced than on the prior study. Diffuse groundglass opacity is seen involving the left lung. T his is a new finding. A tiny left effusion is observed. No effusion on the right. Heart is mildly enl arged. A Port-A-Cath overlies the right chest. An old humeral neck fracture with lack of union seen i nvolving the proximal right humerus. This is a new finding from the prior exam. Old trauma involving the clavicles bilaterally. CONCLUSION: 1. Masslike density involving the right upper lobe is more pronounced from the prior study. 2. Infiltrate throughout the left lung. 3. Cardiomegaly. 4. Tiny left effusion. Jose Antonio Snow Jr., MD on December 17, 2016 at 16:50 Board Certified Radiologist. This report was verified electronically.
[2016-12-17] MEDS: POTASSIUM CHLOR 20 MEQ PREMIX 100 ML IV SCH ×2 (17:12→19:27)
[2016-12-17 17:17] LABS: MEAN CELL VOLUME 87.4 FL (80.0-100.0); MEAN CORPUSCULAR HEMOGLOBIN 28.9 PG (27.0-34.0); MEAN CORPUSCULAR HGB CONC 33.1 % (32.0-36.0); PLATELET COUNT 131 TH/MM3 (150-450); RED BLOOD COUNT 3.54 MIL/MM3 (4.50-5.90); RED CELL DISTRIBUTION WIDTH 28.6 % (11.6-17.2)
[2016-12-17 17:19] LABS: HEMO FLAGS AUTO DIFF
[2016-12-17 17:23] LABS: BANDS 12 % (0-6); NEUTROPHIL # MANUAL DIFF 7.8 TH/MM3 (1.8-7.7); POLYS (SEG NEUTROPHILS) 75 % (16-70); WBC DIFF SAMPLE 100
[2016-12-17 17:24] LABS: ACANTHOCYTES 1+ (NORMAL); KERATOCYTES 1+ (NORMAL)
[2016-12-17 17:25] LABS: PLATELET ESTIMATE SMEAR NORMAL (NORMAL); PLATELET MORPHOLOGY GIANT (NORMAL); SCAN/DIFF FINAL DIFF MANUAL
[2016-12-17 17:31] LABS: BLOOD, URINE NEG (NEG); COMMENT (UR) CULT NOT INDICATED; CULTURE IF INDICATED CULT NOT INDICATED; GLUCOSE,URINE NEG (NEG); KETONE, URINE NEG (NEG); NITRITE,URINE NEG (NEG); URINE COLOR LIGHT-YELLOW (YELLW/STRAW)
[2016-12-17 18:22] LABS: APTT (PATIENT) 43.6 SEC (24.3-30.1); INTERNATIONAL NORMALIZED RATIO 1.6 RATIO; PROTHROMBIN TIME - PATIENT 18.6 SEC (9.8-11.6)
[2016-12-17] MEDS ORDERED: LACTATED RINGER'S 1000 ML INJ 1,000 ML IV SCH (18:49)
[2016-12-17] MEDS ORDERED: ONDANSETRON HCL 4 MG/2 ML VIAL IVP PRN (19:00)
[2016-12-17] MEDS ORDERED: MAGNESIUM HYDROXIDE SUSP 30 ML CUP PO PRN (19:00)
[2016-12-17] MEDS ORDERED: NALOXONE HCL 0.4 MG/ML AMP IV PUSH PRN (19:00)
[2016-12-17] MEDS ORDERED: POTASSIUM CHLORIDE 20 MEQ CONTROLLED RELEASE TAB PO ONE (20:30)
[2016-12-17] MEDS: ENOXAPARIN SODIUM 40 MG/0.4 ML SYRINGE SQ SCH (20:38)
[2016-12-17] MEDS: SODIUM CHLORIDE 0.9% FLUSH 10 ML FLUSH IV FLUSH SCH (21:00)
[2016-12-17] MEDS: RESP: ALBUTEROL 2.5 MG/IPRATROPIUM 0.5 MG NEB (PRN) NEB (22:30)
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
[2016-12-18] VITALS (11 sets, daily range): BP systolic 85–101; BP diastolic 50–57; PULSE 74–119; RESP 18–20; TEMP 97.8–98.9; O2SAT 90–98
[2016-12-18] MEDS ORDERED: diphenhydrAMINE HCL 25 MG CAP PO ONE (00:45)
[2016-12-18] MEDS ORDERED: ACETAMINOPHEN 325 MG TAB PO ONE (00:45)
[2016-12-18] MEDS: ACETAMINOPHEN/HYDROcodone 325 MG/10 MG TAB PO PRN ×5 (01:01→20:24)
[2016-12-18] MEDS ORDERED: IOHEXOL 350 MG/ML 10 ML VIAL (for RAD DIAG) IVCONTRAST ONE (01:50)
--- NOTE | 2016-12-18 01:58 | RADRPT ---
EXAM DATE/TIME: 12/18/2016 01:41 [place] COMPARISON: CT PULMONARY ANGIOGRAM, April 15, 2015, 18:02. INDICATIONS : Short of breath. Evaluate for embolism. IV CONTRAST: 60 cc Omnipaque 350 (iohexol) IV RADIATION DOSE: 23.43 CTDIvol (mGy) MEDICAL HISTORY : Cardiovascular disease. Chronic obstructive pulmonary disease. Gastroesophageal reflux disease.Hypert ension. Lung cancer. SURGICAL HISTORY : None. ENCOUNTER: Initial ACUITY: 1 day PAIN SCALE: 0/10 LOCATION: chest TECHNIQUE: Volumetric scanning of the chest was performed using a pulmonary embolism protocol MIP images were re constructed. Using automated exposure control and adjustment of the mA and/or kV according to patien t size, radiation dose was kept as low as reasonably achievable to obtain optimal diagnostic quality images. DICOM format image data is available electronically for review and comparison. Follow-up recommendations for detected pulmonary nodules are based at a minimum on nodule size and pa tient risk factors according to Fleischner Society Guidelines. FINDINGS: Examination of the pulmonary vasculature demonstrates good filling of the main, lobar and segmental b ranches. There are no filling defects to suggest pulmonary embolism. Multiplanar reconstructions are also unremarkable. There is right upper lobe atelectasis with air bronchograms present. There is extensive honeycombing throughout both lungs with superimposed edema more on the left than on the right. A small left sided effusion is present. Coronary artery calcifications are present. Large pericardial effusion is present which is chronic pr esent in 2016. No abnormally enlarged lymph nodes are identified. The visualized upper abdomen demons trates no abnormality. CONCLUSION: 1. No evidence of pulmonary embolism. 2. Right upper lobe atelectasis 3. Bilateral edema versus pneumonia 4. Large pericardial effusion which appears chronic Orlando Bolaños MD on December 18, 2016 at 1:52 Board Certified Radiologist. This report was verified electronically.
[2016-12-18 02:10] LABS: ANION GAP 9 MEQ/L (5-15); BICARBONATE 31.4 MEQ/L (21.0-32.0); BLOOD UREA NITROGEN 4 MG/DL (7-18); CHLORIDE 93 MEQ/L (98-107); GLOMERULAR FILTRATION RATE 178 ML/MIN (>89); POTASSIUM 3.1 MEQ/L (3.5-5.1); SODIUM (NA) 133 MEQ/L (136-145)
[2016-12-18] MEDS: RESP: ALBUTEROL 2.5 MG/IPRATROPIUM 0.5 MG NEB (SCH) NEB ×5 (02:30→21:43)
[2016-12-18 02:31] LABS: CREATINE KINASE 58 U/L (39-308)
[2016-12-18] MEDS: DIAZEPAM 5 MG TAB PO PRN ×3 (04:07→18:30)
[2016-12-18 05:20] LABS: HEMATOCRIT 24.4 % (39.0-51.0); MEAN CELL VOLUME 86.3 FL (80.0-100.0); MEAN CORPUSCULAR HEMOGLOBIN 29.3 PG (27.0-34.0); PLATELET COUNT 90 TH/MM3 (150-450); RED BLOOD COUNT 2.82 MIL/MM3 (4.50-5.90); RED CELL DISTRIBUTION WIDTH 29.6 % (11.6-17.2); WHITE BLOOD COUNT 5.3 TH/MM3 (4.0-11.0)
[2016-12-18 05:48] LABS: ANION GAP 8 MEQ/L (5-15); AST (GOT) 13 U/L (15-37); BICARBONATE 30.8 MEQ/L (21.0-32.0); BLOOD UREA NITROGEN 6 MG/DL (7-18); CHLORIDE 90 MEQ/L (98-107); GLOMERULAR FILTRATION RATE 226 ML/MIN (>89); POTASSIUM 3.2 MEQ/L (3.5-5.1); SODIUM (NA) 129 MEQ/L (136-145)
[2016-12-18 05:49] LABS: ALT (GPT) 9 U/L (12-78)
[2016-12-18 05:51] LABS: ALKALINE PHOSPHATASE 171 U/L (45-117); TOTAL BILIRUBIN ADULT 0.4 MG/DL (0.2-1.0)
[2016-12-18 06:04] LABS: CREATINE KINASE 53 U/L (39-308); HEMO FLAGS AUTO DIFF
[2016-12-18 08:05] LABS: BANDS 17 % (0-6); NEUTROPHIL # MANUAL DIFF 4.9 TH/MM3 (1.8-7.7); POLYS (SEG NEUTROPHILS) 76 % (16-70); WBC DIFF SAMPLE 100
[2016-12-18 08:07] LABS: PLATELET MORPHOLOGY ENLARGED (NORMAL)
[2016-12-18 08:08] LABS: PLATELET ESTIMATE SMEAR LOW (NORMAL)
[2016-12-18 08:09] LABS: ACANTHOCYTES 1+ (NORMAL); KERATOCYTES OCC (NORMAL)
[2016-12-18 08:10] LABS: SCAN/DIFF FINAL DIFF MANUAL
[2016-12-18] MEDS: SODIUM CHLORIDE 0.9% FLUSH 10 ML FLUSH IV FLUSH SCH ×2 (08:36→20:25)
[2016-12-18] MEDS: FUROSEMIDE 40 MG/4 ML VIAL IV PUSH SCH ×2 (08:36→18:26)
[2016-12-18] MEDS: LEVOFLOXACIN 750 MG PREMIX INJ 150 ML IV SCH (08:36)
[2016-12-18] MEDS: LACTOBACILLUS ACIDOPHILUS TAB PO SCH ×3 (08:37→18:21)
--- NOTE | 2016-12-18 08:54 | MB ---
cc: SCHUYLER ALVAREZ M.D. DATE OF CONSULTATION 12/18/2016 REASON FOR CONSULTATION Pericardial effusion. HISTORY OF PRESENT ILLNESS David Inman is a 61-year-old man diagnosed with [id number] lung cancer since 2011. He has received therapy for this in the past. Has had a known pericardial effusion that was small to moderate in 2012. It was moderate in November 2012. He has had varying ejection fractions in 2012 of 30-35%. On November 14 it was 60-65%. He complains of shortness of breath and cough. His shortness of breath has been improving since he has been in here. He has been hoarse for two years which he relates to scarring of his focal cords. He has had previous endoscopy and bronchoscopy procedures. He still smokes four cigarettes a day and says he has alcohol when he goes out to dinner three times per week. He does not have any typical anginal-type pain but does complain of chronic pain all over including his legs. He has lower extremity edema. PAST MEDICAL HISTORY 1. Lung cancer. 2. Past recurrent pericarditis. 3. COPD. 4. Arthritis. 5. Vasectomy. 6. Ongoing tobacco abuse. 7. Past alcohol abuse. 8. Anemia with refusal of endoscopy last admission. 9. Gastroesophageal reflux disease with heavy use of aspirin in the past. ALLERGIES PENICILLIN. FAMILY HISTORY Positive for coronary disease and his father at age 71 of an PR. He has a brother with bovine valve replacement. SOCIAL HISTORY Notable for the smoking and occasional alcohol. PHYSICAL EXAMINATION GENERAL: On physical exam he is a well-developed, well-nourished white male. He is not in acute distress. His voice is hoarse. VITAL SIGNS: His vital signs are charted. He has sinus tachycardia on telemetry. Blood pressure is in the 90s. HEENT: Exam unremarkable. NECK: Mild increased central venous pressure. CHEST: Wet crackles and rhonchi in both lung west. CARDIAC EXAM: S1 and S2 distant, regular rate and rhythm. Cannot hear an S3 gallop. Cannot appreciate a murmur. ABDOMEN: Soft. EXTREMITIES: 2+ lower extremity edema. EKG From 3 or 4 p.m. yesterday shows sinus tachycardia, low voltage throughout. CHEST X-RAYS He has had a chest CT showing right upper lobe atelectasis, bilateral edema versus pneumonia and a large pericardial effusion which appears chronic. LABORATORIES Very abnormal. Hematocrit is only 24.4, white count was 5300 with 17% bands, platelet count is depressed at 90,000. INR is elevated at 1.6. Sodium is depressed at 129. Troponins are negative x3. Potassium low at 3.2, albumin is low at 2.0. IMPRESSION 1. This is a complicated 61-year-old male with multiple problems going on at the same time. He has got multiple cytopenias, probably should have a baseball umpire for little league/oncologist evaluate that. 1. He has severe lung abnormalities. He still smokes. 2. He has got a pericardial effusion. 3. He is tachycardiac and he has a repeat echo ordered to see if there is any sign of tamponade. 4. His potassium is low. 5. He has got volume overload on his exam. PLAN 1. He has got IV Lasix ordered. 2. I have ordered potassium replacement. 3. I am waiting for the 2-D echo to be performed. 4. I advised him to quit smoking. 5. Further therapy be determined. Schuyler Alvarez MD [facility]ED[facility]/SSB /8:34 AM /8:57 AM
[2016-12-18] MEDS ORDERED: PANTOPRAZOLE SOD 40 MG DELAYED RELEASE TAB PO SCH ×2 (09:00)
[2016-12-18] MEDS: POTASSIUM CHLORIDE 20 MEQ CONTROLLED RELEASE TAB PO SCH ×3 (10:09→18:00)
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
[2016-12-18] MEDS ORDERED: GLUCAGON 1 MG/ML VIAL OTHER PRN (11:30)
[2016-12-18] MEDS ORDERED: DEXTROSE 50% IN WATER 50 ML VIAL(D50) IV PUSH PRN (11:30)
[2016-12-18] MEDS: INSULIN ASPART SUPPLEMENTAL SCALE SQ SCH ×3 (12:00→20:25)
--- NOTE | 2016-12-18 13:52 | ECHRPT ---
Indication: SHORTNESS OF BREATH CONCLUSIONS Normal left ventricular size. Wall thickness is normal. The left ventricular systolic function is hyperdynamic with an estimated ejection fraction in the ra nge of 65- 70%. Diastolic near collapse of RA. Trivial pulmonary valve regurgitation. IVC does npt collapse with inspirationThere is large pericardial effusion present. Echocardiographic features were consistent with hemodynamically significant pericardial effusion and tamponade physiology. BP: 96 / 53 HR: 109 Rhythm: Sinus MEASUREMENTS (Male / Female) Normal Values Technical Quality:Fair 2D ECHO LV Diastolic Diameter PLAX 5.1 cm 4.2 - 5.9 / 3.9 - 5.3 cm LV Systolic Diameter PLAX 3.5 cm IVS Diastolic Thickness 0.8 cm 0.6 - 1.0 / 0.6 - 0.9 cm LVPW Diastolic Thickness 0.8 cm 0.6 - 1.0 / 0.6 - 0.9 cm LV Relative Wall Thickness 0.3 LVOT Diameter 2.3 cm Aortic Root Diameter 3.4 cm M-MODE AV Cusp Separation MM 2.4 cm FINDINGS LEFT VENTRICLE Normal left ventricular size. Wall thickness is normal. The left ventricular systolic function is hyperdynamic with an estimated ejection fraction in the ra nge of 65- 70%. RIGHT VENTRICLE Normal right ventricular size and systolic function. LEFT ATRIUM The left atrial size is normal. RIGHT ATRIUM Diastolic near collapse MITRAL VALVE Structurally normal mitral valve. No mitral valve stenosis or regurgitation. AORTIC VALVE Trileaflet aortic valve. No aortic valve stenosis or regurgitation. TRICUSPID VALVE Structurally normal tricuspid valve. No tricuspid valve stenosis or regurgitation. PULMONARY VALVE Trivial pulmonary valve regurgitation. VESSELS IVC does npt collapse with inspiration PERICARDIUM There is large pericardial effusion present. Echocardiographic features were consistent with hemodynamically significant pericardial effusion and tamponade physiology. OTHER FINDINGS Early cardiac tamponade Manfred Amaya MD (Electronically Signed) Final Date:18 December 2016 13:52
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
[2016-12-18] MEDS ORDERED: AZITHROMYCIN INJ 500 MG in SODIUM CHLOR 0.9% 250 ML INJ 250 ML IV SCH (15:00)
[2016-12-18] MEDS ORDERED: cefTRIAXone INJ 1,000 MG in SODIUM CHLORIDE 0.9% INJ 100 ML IV SCH (16:00)
[2016-12-18 16:28] LABS: HEMOGLOBIN A1a 1.6 %; HEMOGLOBIN Ao 83.4 %; HEMOGLOBIN LA1C 2.9 %; HEMOGLOBIN P3 4.1 %
--- NOTE | 2016-12-18 18:25 | MB ---
cc: TINO TRAN MD DATE OF CONSULTATION 12/18/16 HISTORY OF PRESENT ILLNESS A 61-year-old male diagnosed with [id number] lung cancer in 2011, stage IV, underwent chemo and radiation, has been in remission. He apparently has known small pericardial effusion in 2012, EF of 30-35% complaining of shortness of breath. He has also had some hoarseness due to scarring of his vocal cords, and history of recurrent pericarditis, underwent echocardiogram which showed EF of 60-65%, diastolic near collapse of the right atrium. The IVC does not collapse with inspiration, large pericardial present. We were consulted to evaluate for possible pericardial window. PAST MEDICAL HISTORY 1. stage IV lung cancer treated with chemo and radiation in 2011 in remission. 2. COPD, 3. Arthritis, 4. Ongoing tobacco abuse, 5. Past alcohol abuse, 6. Anemia 7. Refuse of endoscopy last admission 8. Gastroesophageal reflux disease. SURGERIES 1. Vasectomy 2. Baer endoscopy ALLERGIES PENICILLIN MEDICATIONS Home include 1. Spiriva 2. Ventolin 3. Lortab 4. Mirtazapine 5. Diazepam 6. Symbicort 7. Protonix 8. Vitamin C. FAMILY HISTORY The brother had bovine valve, sister at age 64. She still smokes about four cigarettes a day. Occasional alcohol. , one son. REVIEW OF SYSTEMS As above as in the initial H&P out of 12 systems unremarkable. PHYSICAL EXAMINATION GEBERAL: On exam, somewhat ill-appearing male. Patient is awake, alert, sitting up in the chair. VITAL SIGNS: Blood pressure 100/60, heart rate 114, afebrile, respiratory rate of 18-20, O2 sat 94 on room air. HEENT: Head is normocephalic, atraumatic. Pupils equal and reactive. Oral mucosa pink, moist. His voice is hoarse. HEART: S1-S2 slightly tachycardiac. No audible rubs or gallops. He has some mild JVD. LUNGS: Few crackles in the bases and some scattered rhonchi. ABDOMEN: Soft, nontender. EXTREMITIES: 2+ edema. CARDIOLOGY STUDIES EKG sinus tach, low voltage. IMAGING STUDIES CT chest showed right upper lobe atelectasis, bilateral pulmonary edema versus pneumonia and a large pericardial effusion which appears chronic. CT angiography again no PE, right upper lobe atelectasis, bilateral edema versus pneumonia. LABORATORY FINDINGS Hemoglobin eight, hematocrit 24, white cell count five, platelet count of 90. Sodium 129, potassium 3.2, BUN six, creatinine 0.39, troponin is negative. INR 1.6. Urine unremarkable. IMPRESSION The patient has recurrent large pericardial effusion with history of pericarditis in the past. The patient adamantly refuses any surgery at this time. Is agreeable to proceed with interventional radiology evaluation for Pericardiocentesis. We will sent fluid for studies at that time and follow accordingly. Dictated by SARI Bender The patient refused open surgical procedure to drain this effusion and has decompensated since this note was dictated and transcribed. I have discussed with Dr. Amaya and will consult with the family. MD BREE Neely/ /5:57 PM /7:45 AM ANIYA
[2016-12-18] MEDS ORDERED: ALBUTEROL SULFATE 90 MCG/ACT HFA 8 GM INHALER INH PRN (19:00)
[2016-12-18] MEDS: ENOXAPARIN SODIUM 40 MG/0.4 ML SYRINGE SQ SCH (20:24)
[2016-12-18] MEDS: BUDESONIDE-FORMOTEROL 80/4.5 MCG INHALER INH SCH (20:25)
--- NOTE | 2016-12-18 21:11 | EKG ---
Date Performed: 12/17/2016 Time Performed: 15:04:57 PTAGE: 61 years EKG: SINUS TACHYCARDIA LOW QRS VOLTAGE NONSPECIFIC T WAVE CHANGE ABNORMAL ECG PREVIOUS TRACING 11/13/2016 @ 22.00 Compared to prior tracing no significant change DOCTOR: Endy Gregory Interpretating Date/Time 12/18/2016 21:11:00
[2016-12-19] VITALS (13 sets, daily range): BP systolic 81–111; BP diastolic 54–79; PULSE 112–148; RESP 13–32; TEMP 97.7–99; O2SAT 88–100
--- NOTE | 2016-12-19 00:17 | MB ---
cc: SHARON JUÁREZ MD DATE OF : 1955 DATE OF CONSULTATION: 12/18/2016 REASON FOR CONSULTATION: Patient with a past medical history of lung cancer who is being admitted to the hospital with acute dyspnea and CHF. HISTORY OF PRESENT ILLNESS: Mr. Inman is a 61 year-old male who has a history of stage III lung cancer. He was treated with combined chemoradiation in 2011. This was definitive treatment with a curative intent. He had complete response after his treatment and he has been under close observation. He has a longstanding history of tobacco abuse and COPD, and has severe emphysema. He now presented to the emergency department with increasing dyspnea and cough. He has been evaluated by cardiology. He has pericardial effusion. A 2-D echocardiogram has been ordered. He is currently being treated for COPD exacerbation/pneumonia, and cardiac workup is ongoing. He has been receiving IV diuretics. On admission, a chest x-ray was obtained. This showed consolidation-like area in the right upper lobe. There was an infiltrate in the left lung as well. Cardiomegaly was noted. He subsequently underwent a CT angiogram to rule out pulmonary embolism. This did not show a pulmonary thromboembolism. There was an area of consolidation in the right upper lobe. There was extensive emphysema with honeycombing. A large pericardial effusion was visualized. REVIEW OF SYSTEMS: A comprehensive 14 point review of systems was completed which was negative otherwise as described in the HPI. PAST MEDICAL HISTORY: 1. Stage III lung cancer treated with definitive chemoradiation treatments in 2011, currently under observation. 2. Hypertension. 3. CHF. 4. COPD. 5. Emphysema on oxygen at two liters per minute at night. 6. Chronic right-sided hip pain. PAST SURGICAL HISTORY: 1. History of lung biopsy. 2. Panendoscopy. 3. Vasectomy. FAMILY HISTORY: Significant for heart valve problems and diabetes. SOCIAL HISTORY: He smokes approximately half-pack per day. Denies any alcohol abuse. No illicit drug use. MEDICATIONS: 1. Symbicort two puffs q12. 2. Albuterol two puffs q4 hours INH. 3. Sliding scale insulin. 4. Levofloxacin IV q24 hours. 5. Pantoprazole 40 milligrams p.o. b.i.d. 6. Furosemide 20 milligrams b.i.d. 7. Potassium chloride 40 milliequivalents t.i.d. p.o. 8. Diazepam 5 milligrams p.o. t.i.d. p.r.n. 9. Upperglade 10/225, p.o. q4 hours p.r.n. 10. Lovenox 40 milligrams subcu q24 hours. 11. Zofran 4 milligrams IV q6 hours. 12. Milk of Magnesia 30 cc q12 hours p.r.n. ALLERGIES: PENICILLIN G. PHYSICAL EXAMINATION: VITAL SIGNS: Blood pressure is 100/56, pulse 100, temperature 98.1, respiratory rate 16. GENERAL: Chronically ill-appearing male in no apparent distress. HEENT: Pupils equal, round, reactive to light and accommodation. EOMI. No oral lesions. NECK: Supple. No JVD. No bruits. No lymphadenopathy. CHEST: Bilateral rhonchi heard in the upper lobes, wheezing, decreased breath sounds in the left lower lobe. ABDOMEN: Bowel sounds present. EXTREMITIES: Edematous, 1+ bilateral lower extremity edema, 2+ pulses. NEUROLOGIC: No focal deficits. PSYCHIATRIC: Mood and affect is appropriate. Lymph node exam did not reveal any lymphadenopathy. LABORATORY DATA: WBC is 5.3, hemoglobin 8.3, platelet count 90. MCV is 86.3. Serum chemistries show sodium of 129, potassium 3.2, chloride 90, CO2 30.8, BUN 6, creatinine 0.39. GFR is 226. Calcium 7.8, total bilirubin 0.4, AST 13, ALT 9, alk phos 171. Troponins have been less than 0.02. Total protein 5, albumin 2. IMAGING STUDIES: Reviewed in the EMR and discussed in the HPI above. ASSESSMENT AND PLAN: This is a 61 year-old male who has a past medical history of stage III lung cancer. He was treated with combined modality treatment consisting of radiation and chemotherapy in 2011. He had excellent treatment response and he has been under close observation. He has a history of tobacco abuse, severe COPD and emphysema. He is on chronic oxygen at night. He presents to the emergency department with worsening dyspnea and bilateral lower extremity edema. 1. Acute development of dyspnea and lower extremity edema. His BNP was elevated to 127. He has been receiving IV diuresis. Cardiac evaluation is ongoing. He does have a large pericardial effusion which may need to be drained. A 2-D echocardiogram is pending. From a lung cancer standpoint, I have reviewed his CT scan personally. I also reviewed the images with the radiologist. He does have significant emphysema with honeycombing. There is a chronic right upper lobe consolidated area which appears to be more reactive in nature than malignancy. These may be chronic radiation changes combined with severe emphysema. I would recommend continued supportive care for COPD exacerbation and to treat any underlying infection. 2. Pericardial effusion. May need pericardial window with drainage. I would defer this to cardiology and CT surgery. 3. Anemia which is normocytic. With a hemoglobin of 8.3, obtain anemia studies. He has received iron infusions in the past. If he is found to be iron deficient, I may give him additional iron infusions while inpatient. He has had a GI workup in the past. 4. Mild thrombocytopenia. He is asymptomatic. This is chronic. No additional workup is needed. 5. Hypokalemia, replace potassium. 6. Hyponatremia. I would defer the management of this to the primary team. 7. Hypoalbuminemia with albumin of 2.2. Encourage oral intake, would recommend dietary supplement such as Ensure or Boost t.i.d. with meals. Thank you for allowing me to participate in the care of this patient. I will continue to follow this patient along. MD JOHANNA Haley/AGNES /11:27 PM /11:44 PM ANIYA
[2016-12-19] MEDS: RESP: ALBUTEROL 2.5 MG/IPRATROPIUM 0.5 MG NEB (SCH) NEB ×4 (04:00→20:15)
[2016-12-19] MEDS: DIAZEPAM 5 MG TAB PO PRN (05:14)
[2016-12-19] MEDS: ACETAMINOPHEN/HYDROcodone 325 MG/10 MG TAB PO PRN (05:14)
[2016-12-19 07:37] LABS: BLOOD GAS BASE EXCESS 6.1 mmol/L (-2-2); BLOOD GAS CARBOXYHEMOGLOBIN 1.5 % (0-4); BLOOD GAS HCO3 29 mmol/L (22-26); BLOOD GAS METHEMOGLOBIN 0.7 % (0-2); BLOOD GAS O2 HGB SATURATION 83 % (90-100); BLOOD GAS OXYGEN CONTENT 11.5 Vol % (12.0-20.0); BLOOD GAS PCO2 38 mmHg (38-42); BLOOD GAS PO2 51 mmHg (61-120); BLOOD GAS TOTAL HGB 9.8 G/DL (12.0-16.0); TEMP CORR TO 98.6
[2016-12-19 07:38] LABS: CRITICAL VALUE YES; DRAW SITE LT RADIAL; FIO2 50 %; LITER FLOW 6 L/M; NUMBER OF ARTERIAL PUNCTURES 1; OXYGEN DEVICE Venti Mask; STAT YES; ULNAR PULSE PRESENT
--- NOTE | 2016-12-19 07:38 | HHI.PR ---
Addendum to Inpatient Note Addendum Reason: Additional Documentation Additional Information Halicat Note S Halicat heard overhead; residents responded. Pt noted to be short of breath with O2 sat 90%. He is anxious appearing but denies chest pain. He is on Venti mask at evaluation. O CV exam difficult due to rhonchi Lung exam s/f coarse rhonchi, increased work of breathing Skin warm and pink, 2+ pulses bilaterally in UE A/P EKG, CXR, ABG ordered. Pt to be transferred to [facility] per [facility] team. Dr. Virk, attending physician, was notified and requested no Lasix to be given. Pt transfer in process at time of note writing. NADJA Hu nurses, Isa Delong MD R2 Dec 19, 2016 07:38
[2016-12-19] MEDS: INSULIN ASPART SUPPLEMENTAL SCALE SQ SCH ×4 (08:00→21:00)
[2016-12-19] MEDS ORDERED: EPINEPHrine HCL (1:10,000) 1 MG/10 ML SYRINGE ONE (08:15)
[2016-12-19] MEDS ORDERED: TERBUTALINE INJ 1 MG/ML AMP SQ PRN (08:15)
[2016-12-19] MEDS: NOREPINEPHRINE-DEXTROSE DRIP 250 ML IV PRN ×2 (08:20→19:00)
[2016-12-19] MEDS: fentaNYL DRIP 250 ML IV PRN ×2 (08:20→18:50)
[2016-12-19] MEDS ORDERED: LIDOCAINE HCL 1% 20 ML VIAL ONE (08:28)
[2016-12-19] MEDS ORDERED: MIDAZOLAM HCL 2 MG/2 ML VIAL ONE (08:53)
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
--- NOTE | 2016-12-19 09:27 | PD.PROCEDR ---
Procedure Note Procedure Endotracheal Intubation Diagnosis: Acute hypoxemic respiratory failure Indications: Same Consent: Emergent Anesthesia: See MAR Description of the Procedure: The patient was positioned in the sniffing position. Pre-oxygenation was performed using a BVM 100%. Anesthesia was induced via rapid sequence. A glide scope was used for laryngoscopy and a Grade 1 view was obtained. A 8.0 cuffed endotracheal tube was inserted atraumatically through the vocal cords. Confirmation of correct endotracheal tube placement was made by equal and bilateral breath sounds and colorimetric CO2 detection. The endotracheal tube was secured at 23 cm at the teeth. There were no immediate complications noted. The patient remained hemodynamically stable throughout the procedure. A chest x-ray has been ordered. I personally performed the procedure. Donya Crane MD Dec 19, 2016 09:27
--- NOTE | 2016-12-19 10:00 | RADRPT ---
EXAM DATE/TIME: 12/19/2016 10:35 [facility] COMPARISON: CHEST PA & LAT, December 17, 2016, 16:24. CHEST SINGLE AP, November 13, 2016, 17:58. INDICATIONS : Respiratory failure. Post intubation. Post pericardiocentesis. MEDICAL HISTORY : Chronic obstructive pulmonary disease. Gastroesophageal reflux disease.Carcinoma, lung. Congestive he art failure. Chest pain. Hypertension. Asthma. Anxiety.Depression. Chemotherapy. SURGICAL HISTORY : Vasectomy. Port right chest. ENCOUNTER: Subsequent ACUITY: 4 - 6 days PAIN SCORE: Non-responsive. LOCATION: chest FINDINGS: 2 AP views of the chest demonstrate a normal-sized cardiac silhouette. There is air space opacity wit h volume loss at the right lung apex. Right chest wall Eueugi-e-Cdue remains present. Endotracheal tu be is present with distal tip measuring 2.4 cm from the alber. There is diffuse interstitial and air space opacity throughout the left lung and mild interstitial opacity in the right lower lung zone. No pneumothorax is present. Bones demonstrate no acute finding. There is an old right proximal humerus fracture. CONCLUSION: 1. Endotracheal tube in appropriate position with distal tip 2.4 cm from the alber. 2. Stable volume loss and airspace opacity at the right lung apex and bilateral interstitial and airs pace opacities. Jose Turner MD on December 19, 2016 at 9:57 Board Certified Radiologist. This report was verified electronically.
--- NOTE | 2016-12-19 10:03 | PD.RAD ---
Post CT Procedure Prog Note Pre Procedure Diagnosis: (1) Pericardial effusion Post Procedure Diagnosis: (1) Pericardial effusion Procedure Date: Dec 19, 2016 Supervising Radiologist: Jose Turner Estimated blood loss: none Anesthesia: Conscious Sedation Plan of Activity Patient to Unit: Critical Care Patient Condition: Fair Additional Comments: pericardial effusion has significantly decreased in size from yesterday's CT. Current pericardial effusion is moderate in size with little window for safe drainage. 2 attempts were made at different locations but unsuccessful. See PACS Report for procedural detail/treatment Jose Turner MD Dec 19, 2016 10:03
--- NOTE | 2016-12-19 10:06 | RADRPT ---
EXAM DATE/TIME: 12/19/2016 08:42 [facility] COMPARISON: CT PULMONARY ANGIOGRAM, December 18, 2016, 1:41. INDICATIONS : Pericardial effusion. SEDATION TIME: 60 minutes MEDICATION(S): 1.) 2 mg midazolam (Versed) IV DEVICE(S): 1.) 22 gauge needle FLUID: Total volume of 5 cc of clear, red fluid was removed. Fluid was sent for laboratory ordered studies. MEDICAL HISTORY : Cardiovascular disease. Hypertension. Carcinoma, lung. SURGICAL HISTORY : None. ENCOUNTER: Initial ACUITY: 1 day PAIN SCORE: Non-responsive LOCATION: Bilateral chest PROCEDURE: 1.) Conscious sedation with continuous EKG and oximetry monitoring. 2.) EKG and oximetry remained stable throughout the procedure. PROCEDURE : CT guided her cardiocentesis attempted. The risks, benefits and alternatives to the procedure were explained and verbal and written consent w as obtained. Using automated exposure control and adjustment of the mA and/or kV according to patien t size, radiation dose was kept as low as reasonably achievable to obtain optimal diagnostic quality images. The site was prepped in sterile fashion. Full sterile technique was used, including cap, ma sk, sterile gloves and gown and a large sterile sheet. Hand hygiene and 2% chlorhexidine and/or beta dine/alcohol prep was utilized per protocol for cutaneous antisepsis. The skin and subcutaneous tiss ues were infiltrated with local anesthetic solution. DICOM format image data is available electronic ally for review and comparison. The pericardial effusion has significantly decreased in size from yesterday's examination but remains moderate in size. There are one or 2 potential small windows available for safe drainage. However, b oth reasonable access points were attempted and only a few cc's of reddish fluid was removed. I could not gain safe access to the pericardial effusion. Post procedure imaging demonstrates no acute finding. Lungs have a stable appearance yesterday's scan with interstitial and airspace opacities bilaterally and dense consolidation and volume loss at the right lung apex. CONCLUSION: Unsuccessful pericardial drain placement. The pericardial effusion has significantly decreased in siz e from yesterday's examination and attempting drainage at 2 separate locations was unsuccessful. Jose Turner MD on December 19, 2016 at 9:59 Board Certified Radiologist. This report was verified electronically.
[2016-12-19] MEDS: PROPOFOL 1000 MG/100 ML INJ 100 ML IV PRN ×2 (10:13→17:01)
[2016-12-19] MEDS: LACTOBACILLUS ACIDOPHILUS TAB PO SCH ×3 (13:00→17:00)
[2016-12-19] MEDS: POTASSIUM CHLORIDE 20 MEQ CONTROLLED RELEASE TAB PO SCH ×3 (13:00→17:00)
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
[2016-12-19] MEDS ORDERED: Vancomycin Consult Pharmacy 1 EA OTHER SCH (15:30)
[2016-12-19 15:32] LABS: HEMATOCRIT 28.8 % (39.0-51.0); MEAN CELL VOLUME 88.3 FL (80.0-100.0); MEAN CORPUSCULAR HEMOGLOBIN 29.3 PG (27.0-34.0); MEAN CORPUSCULAR HGB CONC 33.2 % (32.0-36.0); PLATELET COUNT 132 TH/MM3 (150-450); RED BLOOD COUNT 3.26 MIL/MM3 (4.50-5.90); RED CELL DISTRIBUTION WIDTH 29.2 % (11.6-17.2); WHITE BLOOD COUNT 8.1 TH/MM3 (4.0-11.0)
[2016-12-19] MEDS: SODIUM CHLORIDE 0.9% FLUSH 10 ML FLUSH IV FLUSH SCH ×2 (15:32→21:08)
[2016-12-19] MEDS: LEVOFLOXACIN 750 MG PREMIX INJ 150 ML IV SCH (15:33)
[2016-12-19] MEDS: PANTOPRAZOLE SODIUM 40 MG VIAL IV PUSH SCH ×2 (15:33→21:07)
--- NOTE | 2016-12-19 15:33 | PD.PROCEDR ---
Procedure Note Procedure Procedure: Arterial Line Placement Left radial Diagnosis: Hemodynamic instability Indications: Same Consent: Emergent Description of the Procedure: The [ was prepped and draped sterilely. 1% lidocaine was used for local anesthesia. The pulse was located and a needle was advanced into the artery. A 20 gauge, 1.34 cm catheter was advanced into the artery using a modified Seldinger technique. The catheter was sutured to the skin and a sterile dressing was applied. The catheter was connected to a pressure transducer and an arterial waveform was noted. There were no immediate complications noted. There was minimal EBL. I personally performed the procedure. Donya Crane MD Dec 19, 2016 15:33
[2016-12-19 15:37] LABS: INTERNATIONAL NORMALIZED RATIO 1.3 RATIO; PROTHROMBIN TIME - PATIENT 14.3 SEC (9.8-11.6)
[2016-12-19 15:40] LABS: HEMO FLAGS AUTO DIFF
[2016-12-19 16:08] LABS: BICARBONATE 32.7 MEQ/L (21.0-32.0); MAGNESIUM 1.9 MG/DL (1.5-2.5); POTASSIUM 4.7 MEQ/L (3.5-5.1)
[2016-12-19 16:17] LABS: BANDS 9 % (0-6); EOSINOPHILS 1 % (0-4); MYELOCYTES 2 % (0-0); NEUTROPHIL # MANUAL DIFF 7.5 TH/MM3 (1.8-7.7); POLYS (SEG NEUTROPHILS) 82 % (16-70); WBC DIFF SAMPLE 100
[2016-12-19 16:18] LABS: ACANTHOCYTES 1+ (NORMAL); KERATOCYTES 1+ (NORMAL); PLATELET ESTIMATE SMEAR LOW (NORMAL); PLATELET MORPHOLOGY GIANT (NORMAL); SCAN/DIFF FINAL DIFF MANUAL
[2016-12-19 16:21] LABS: BLOOD GAS BASE EXCESS 4.2 mmol/L (-2-2); BLOOD GAS CARBOXYHEMOGLOBIN 1.4 % (0-4); BLOOD GAS HCO3 30 mmol/L (22-26); BLOOD GAS METHEMOGLOBIN 1.2 % (0-2); BLOOD GAS O2 HGB SATURATION 93 % (90-100); BLOOD GAS OXYGEN CONTENT 12.2 Vol % (12.0-20.0); BLOOD GAS PCO2 55 mmHg (38-42); BLOOD GAS PO2 85 mmHg (61-120); BLOOD GAS TOTAL HGB 9.2 G/DL (12.0-16.0); OXYGEN DEVICE VENTILATOR; TEMP CORR TO 98.6
[2016-12-19 16:25] LABS: DRAW SITE ALINE; FIO2 40 %; STAT YES
[2016-12-19] MEDS: MICAFUNGIN INJ 100 MG in SODIUM CHLORIDE 0.9% INJ 100 ML IV SCH (17:00)
--- NOTE | 2016-12-19 17:43 | PD.CAR.PN ---
CVT Progress Note Subjective/Hospital Course: 61-year-old male who was admitted on 12/17 2016 with complaints of dyspnea. The patient notably has a medical history significant for lung cancer stage III status post chemotherapy and radiation therapy in 2011. Upon admission to [facility] workup was performed which was noted with a significant pericardial effusion. An echo was performed on 12/18/16 and it noted a significant pericardial effusion with cardiac tamponade physiology. Patient has a history of a chronic pericardial effusion. He refused surgical pericardial window, IR was consulted for pericardiocentesis 12/19 pt had a Halicat response to IMC secondary to increasing dyspnea with sinus tachycardia and acute decompensation. per [facility] note PaO2 was noted to be 50, tachypnea, dyspneic on CPAP. He was emergently intubated and sent emergently for CT-guided pericardiocentesis by interventional radiology. IR removed 5cc redness drainage / Unsuccessful pericardial drain placement. The pericardial effusion has significantly decreased in size from yesterday's examination and attempting drainage at 2 separate locations was unsuccessful. palliative care following pt intubated sedated on vent remains tachycardiac , no pressors Objective: Vital Signs Date Time Temp Pulse Resp B/P (MAP) Pulse Ox O2 Delivery O2 Flow Rate FiO2 12/19/16 16:10 99 40 12/19/16 16:00 40 12/19/16 15:56 96 40 12/19/16 12:00 40 12/19/16 10:00 100 100 12/19/16 09:40 149 106/73 12/19/16 08:30 100 100 12/19/16 08:20 145 126/68 12/19/16 07:40 88 Non-Rebreather 15.00 12/19/16 07:30 88 15.00 100 12/19/16 06:29 98.1 112 18 97/55 (69) 96 12/19/16 00:16 97.7 117 18 94/61 (72) 94 12/18/16 22:00 Nasal Cannula 3.00 12/18/16 22:00 115 12/18/16 21:44 96 Nasal Cannula 5.00 12/18/16 20:00 98.1 114 20 100/56 (71) 94 Labs: Laboratory Tests Test 12/19/16 07:33 12/19/16 15:00 12/19/16 15:55 Blood Gas Puncture Site LT RADIAL LEAH Blood Gas Patient Temperature 98.6 98.6 Blood Gas HCO3 29 mmol/L (22-26) 30 mmol/L (22-26) Blood Gas Base Excess 6.1 mmol/L (-2-2) 4.2 mmol/L (-2-2) Blood Gas Oxygen Saturation 83 % (90-100) 93 % (90-100) Arterial Blood pH 7.50 (7.380-7.420) 7.35 (7.380-7.420) Arterial Blood Partial Pressure CO2 38 mmHg (38-42) 55 mmHg (38-42) Arterial Blood Partial Pressure O2 51 mmHg (61-120) 85 mmHg (61-120) Arterial Blood Oxygen Content 11.5 Vol % (12.0-20.0) 12.2 Vol % (12.0-20.0) Arterial Blood Carboxyhemoglobin 1.5 % (0-4) 1.4 % (0-4) Arterial Blood Methemoglobin 0.7 % (0-2) 1.2 % (0-2) Blood Gas Hemoglobin 9.8 G/DL (12.0-16.0) 9.2 G/DL (12.0-16.0) Oxygen Delivery Device Venti Mask VENTILATOR Blood Gas Liter Flow 6 L/M Blood Gas Inspired Oxygen 50 % 40 % White Blood Count 8.1 TH/MM3 (4.0-11.0) Red Blood Count 3.26 MIL/MM3 (4.50-5.90) Hemoglobin 9.6 GM/DL (13.0-17.0) Hematocrit 28.8 % (39.0-51.0) Mean Corpuscular Volume 88.3 FL (80.0-100.0) Mean Corpuscular Hemoglobin 29.3 PG (27.0-34.0) Mean Corpuscular Hemoglobin Concent 33.2 % (32.0-36.0) Red Cell Distribution Width 29.2 % (11.6-17.2) Platelet Count 132 TH/MM3 (150-450) Mean Platelet Volume 9.0 FL (7.0-11.0) CBC Comment AUTO DIFF Differential Total Cells Counted 100 Neutrophils % (Manual) 82 % (16-70) Band Neutrophils % 9 % (0-6) Lymphocytes % 5 % (9-44) Monocytes % 1 % (0-8) Eosinophils % 1 % (0-4) Neutrophils # (Manual) 7.5 TH/MM3 (1.8-7.7) Myelocytes 2 % (0-0) Differential Comment FINAL DIFF MANUAL Platelet Estimate LOW (NORMAL) Platelet Morphology Comment GIANT (NORMAL) Acanthocytes 1+ (NORMAL) Keratocytes 1+ (NORMAL) Prothrombin Time 14.3 SEC (9.8-11.6) Prothromb Time International Ratio 1.3 RATIO Blood Urea Nitrogen 10 MG/DL (7-18) Creatinine 0.50 MG/DL (0.60-1.30) Random Glucose 114 MG/DL (74-106) Calcium Level 8.2 MG/DL (8.5-10.1) Magnesium Level 1.9 MG/DL (1.5-2.5) Sodium Level 130 MEQ/L (136-145) Potassium Level 4.7 MEQ/L (3.5-5.1) Chloride Level 92 MEQ/L (98-107) Carbon Dioxide Level 32.7 MEQ/L (21.0-32.0) Anion Gap 5 MEQ/L (5-15) Estimat Glomerular Filtration Rate 170 ML/MIN (>89) Blood Gas Ventilator Setting Result Diagram: 12/19/16 1500 12/19/16 1500 Telemetry: sinus tach (1) Pericardial effusion Plan: attempted drainage by IR, unsuccessful will further discuss with Dr Huerta, pt adamantly did not want surgical pericardial window 12/18 (2) Non-small cell lung cancer Amanda Astorga Dec 19, 2016 17:43
[2016-12-19] MEDS: VANCOMYCIN INJ 1,250 MG in SODIUM CHLOR 0.9% 250 ML INJ 250 ML IV SCH (18:00)
[2016-12-19] MEDS: CHLORHEXIDINE GLUCONATE 0.12% 15 ML CUP OROPHARYNG SCH (20:00)
[2016-12-19] MEDS ORDERED: CHLORHEXIDINE GLUCONATE 2 % 1 PACK (2 CLOTHS)(extra cloths) TOPICAL PRN (20:30)
[2016-12-19] MEDS: BUDESONIDE-FORMOTEROL 80/4.5 MCG INHALER INH SCH (21:00)
[2016-12-20] VITALS (24 sets, daily range): BP systolic 76–149; BP diastolic 51–77; PULSE 114–152; RESP 7–24; TEMP 98.3–100.1; O2SAT 98–100
[2016-12-20 01:35] LABS: PERICARDIAL LYMPHS 68 %; PERICARDIAL MONOS 6 %; PERICARDIAL POLYS(SEGS) 26 %; PERICARDIAL RBC 568187 /MM3 (0-0); PERICARDIAL WBC 802 /MM3 (0-10)
[2016-12-20] MEDS: PROPOFOL 1000 MG/100 ML INJ 100 ML IV PRN (03:21)
[2016-12-20] MEDS: fentaNYL DRIP 250 ML IV PRN ×2 (03:21→12:34)
[2016-12-20] MEDS: RESP: ALBUTEROL 2.5 MG/IPRATROPIUM 0.5 MG NEB (SCH) NEB ×4 (03:40→20:34)
[2016-12-20] MEDS: CHLORHEXIDINE GLUCONATE 2 % 1 PACK (2 CLOTHS)(taper/protocol) TOPICAL SCH (04:00)
[2016-12-20] MEDS: VANCOMYCIN INJ 1,250 MG in SODIUM CHLOR 0.9% 250 ML INJ 250 ML IV SCH ×2 (05:49→18:49)
[2016-12-20] MEDS: NOREPINEPHRINE-DEXTROSE DRIP 250 ML IV PRN ×2 (06:21→21:11)
[2016-12-20 07:34] LABS: CRITICAL VALUE YES
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
[2016-12-20 07:49] LABS: BLOOD GAS BASE EXCESS 2.3 mmol/L (-2-2); BLOOD GAS CARBOXYHEMOGLOBIN 1.6 % (0-4); BLOOD GAS HCO3 27 mmol/L (22-26); BLOOD GAS METHEMOGLOBIN 1.2 % (0-2); BLOOD GAS O2 HGB SATURATION 96 % (90-100); BLOOD GAS OXYGEN CONTENT 13.6 Vol % (12.0-20.0); BLOOD GAS PCO2 47 mmHg (38-42); BLOOD GAS PO2 122 mmHg (61-120); CRITICAL VALUE NO; TEMP CORR TO 98.6
[2016-12-20 07:50] LABS: DRAW SITE ART LINE; FIO2 40 %; OXYGEN DEVICE VENTILATOR; STAT YES; VENT SETTINGS SEE COMMENTS
[2016-12-20] MEDS: INSULIN ASPART SUPPLEMENTAL SCALE SQ SCH ×4 (08:00→21:00)
[2016-12-20 08:08] LABS: HEMATOCRIT 28.5 % (39.0-51.0); MEAN CELL VOLUME 88.8 FL (80.0-100.0); MEAN CORPUSCULAR HEMOGLOBIN 29.3 PG (27.0-34.0); PLATELET COUNT 138 TH/MM3 (150-450); RED BLOOD COUNT 3.21 MIL/MM3 (4.50-5.90); RED CELL DISTRIBUTION WIDTH 28.6 % (11.6-17.2); WHITE BLOOD COUNT 9.5 TH/MM3 (4.0-11.0)
[2016-12-20 08:30] LABS: HEMO FLAGS AUTO DIFF
[2016-12-20 08:36] LABS: ALKALINE PHOSPHATASE 187 U/L (45-117); ALT (GPT) 250 U/L (12-78); ANION GAP 5 MEQ/L (5-15); AST (GOT) 768 U/L (15-37); BLOOD UREA NITROGEN 8 MG/DL (7-18); CHLORIDE 97 MEQ/L (98-107); GLOMERULAR FILTRATION RATE 207 ML/MIN (>89); MAGNESIUM 1.8 MG/DL (1.5-2.5); POTASSIUM 5.3 MEQ/L (3.5-5.1); SODIUM (NA) 134 MEQ/L (136-145); TOTAL BILIRUBIN ADULT 0.6 MG/DL (0.2-1.0)
[2016-12-20] MEDS: CHLORHEXIDINE GLUCONATE 0.12% 15 ML CUP OROPHARYNG SCH ×2 (09:00→20:00)
[2016-12-20] MEDS: BUDESONIDE-FORMOTEROL 80/4.5 MCG INHALER INH SCH ×2 (09:00→21:00)
[2016-12-20] MEDS: POTASSIUM CHLORIDE 20 MEQ CONTROLLED RELEASE TAB PO SCH (09:00)
[2016-12-20 09:01] LABS: BANDS 6 % (0-6); EOSINOPHILS 3 % (0-4); METAMYELOCYTES 3 % (0-1); MYELOCYTES 0 % (0-0); NEUTROPHIL # MANUAL DIFF 8.3 TH/MM3 (1.8-7.7); POLYS (SEG NEUTROPHILS) 78 % (16-70); WBC DIFF SAMPLE 100
[2016-12-20 09:02] LABS: PLATELET ESTIMATE SMEAR LOW (NORMAL)
[2016-12-20 09:04] LABS: ACANTHOCYTES OCC (NORMAL); PLATELET MORPHOLOGY ENLARGED (NORMAL)
[2016-12-20 09:05] LABS: SCAN/DIFF FINAL DIFF MANUAL; TOXIC GRANULATION 1+ (NORMAL)
[2016-12-20] MEDS: SODIUM CHLORIDE 0.9% FLUSH 10 ML FLUSH IV FLUSH SCH ×2 (09:09→21:13)
[2016-12-20] MEDS: LEVOFLOXACIN 750 MG PREMIX INJ 150 ML IV SCH (09:09)
[2016-12-20] MEDS: PANTOPRAZOLE SODIUM 40 MG VIAL IV PUSH SCH ×2 (09:09→21:10)
[2016-12-20] MEDS: LACTOBACILLUS ACIDOPHILUS TAB PO SCH ×3 (09:10→18:00)
--- NOTE | 2016-12-20 09:48 | RADRPT ---
EXAM DATE/TIME: 12/20/2016 07:53 [facility] COMPARISON: CHEST SINGLE AP, December 19, 2016, 10:35. INDICATIONS : Pericardial effusion. MEDICAL HISTORY : None. SURGICAL HISTORY : None. ENCOUNTER: Subsequent ACUITY: 4 - 6 days PAIN SCORE: Non-responsive. LOCATION: chest FINDINGS: Compared to the prior exam there has been no change in the appearance of the heart or lungs. The endo tracheal tube and NG tube remain in place. There is no pneumothorax. There is continues to be bilater al pulmonary infiltrates with opacification of the right apex. No significant pleural effusions. The bony structures are stable. CONCLUSION: No significant interval change. Enrico Peñaloza MD on December 20, 2016 at 9:37 Board Certified Radiologist. This report was verified electronically.
--- NOTE | 2016-12-20 12:13 | PD.CAR.PN ---
CVT Progress Note Subjective/Hospital Course: 61-year-old male who was admitted on 12/17 2016 with complaints of dyspnea. The patient notably has a medical history significant for lung cancer stage III status post chemotherapy and radiation therapy in 2011. Upon admission to [facility] workup was performed which was noted with a significant pericardial effusion. An echo was performed on 12/18/16 and it noted a significant pericardial effusion with cardiac tamponade physiology. Patient has a history of a chronic pericardial effusion. He refused surgical pericardial window, IR was consulted for pericardiocentesis 12/19 pt had a Halicat response to [facility] secondary to increasing dyspnea with sinus tachycardia and acute decompensation. per [facility] note PaO2 was noted to be 50, tachypnea, dyspneic on CPAP. He was emergently intubated and sent emergently for CT-guided pericardiocentesis by interventional radiology. IR removed 5cc redness drainage / Unsuccessful pericardial drain placement. The pericardial effusion has significantly decreased in size from yesterday's examination and attempting drainage at 2 separate locations was unsuccessful. palliative care following pt intubated sedated on vent remains tachycardiac , no pressors 12/20/16 Patient remains on vent, but is awake and alert Objective: Vital Signs Date Time Temp Pulse Resp B/P (MAP) Pulse Ox O2 Delivery O2 Flow Rate FiO2 12/20/16 11:00 141 16 87/63 (71) 100 95/60 (72) 12/20/16 10:00 143 12/20/16 10:00 143 16 86/62 (70) 100 89/58 (68) 12/20/16 09:00 145 16 99/69 (79) 100 97/62 (74) 12/20/16 08:00 100.1 152 24 149/71 (97) 100 119/77 (91) 12/20/16 08:00 40 12/20/16 08:00 152 12/20/16 07:44 100 40 12/20/16 07:00 126 16 82/54 (63) 100 86/54 (65) 12/20/16 06:21 126 85/54 12/20/16 06:00 128 12/20/16 04:00 40 12/20/16 04:00 98.7 128 16 77/51 (60) 100 82/52 (62) 12/20/16 04:00 128 12/20/16 03:41 99 40 12/20/16 02:00 128 12/20/16 00:56 98 40 12/20/16 00:00 40 12/20/16 00:00 129 12/20/16 00:00 99.0 129 7 78/56 (63) 98 87/55 (66) 12/19/16 22:00 128 12/19/16 20:18 98 40 12/19/16 20:00 128 12/19/16 20:00 40 12/19/16 20:00 98.9 128 13 81/57 (65) 98 12/19/16 19:00 124 80/54 12/19/16 16:10 99 40 12/19/16 16:00 40 12/19/16 16:00 99.0 133 14 89/54 (66) 96 12/19/16 15:56 96 40 Labs: Laboratory Tests Test 12/20/16 07:20 12/20/16 07:39 White Blood Count 9.5 TH/MM3 (4.0-11.0) Red Blood Count 3.21 MIL/MM3 (4.50-5.90) Hemoglobin 9.4 GM/DL (13.0-17.0) Hematocrit 28.5 % (39.0-51.0) Mean Corpuscular Volume 88.8 FL (80.0-100.0) Mean Corpuscular Hemoglobin 29.3 PG (27.0-34.0) Mean Corpuscular Hemoglobin Concent 33.0 % (32.0-36.0) Red Cell Distribution Width 28.6 % (11.6-17.2) Platelet Count 138 TH/MM3 (150-450) Mean Platelet Volume 10.5 FL (7.0-11.0) CBC Comment AUTO DIFF Differential Total Cells Counted 100 Neutrophils % (Manual) 78 % (16-70) Band Neutrophils % 6 % (0-6) Lymphocytes % 8 % (9-44) Monocytes % 2 % (0-8) Eosinophils % 3 % (0-4) Neutrophils # (Manual) 8.3 TH/MM3 (1.8-7.7) Metamyelocytes 3 % (0-1) Myelocytes 0 % (0-0) Differential Comment FINAL DIFF MANUAL Toxic Granulation 1+ (NORMAL) Platelet Estimate LOW (NORMAL) Platelet Morphology Comment ENLARGED (NORMAL) Acanthocytes OCC (NORMAL) Blood Urea Nitrogen 8 MG/DL (7-18) Creatinine 0.42 MG/DL (0.60-1.30) Random Glucose 103 MG/DL (74-106) Total Protein 5.3 GM/DL (6.4-8.2) Albumin 1.9 GM/DL (3.4-5.0) Calcium Level 7.8 MG/DL (8.5-10.1) Phosphorus Level 3.0 MG/DL (2.5-4.9) Magnesium Level 1.8 MG/DL (1.5-2.5) Alkaline Phosphatase 187 U/L (45-117) Aspartate Amino Transf (AST/SGOT) 768 U/L (15-37) Alanine Aminotransferase (ALT/SGPT) 250 U/L (12-78) Total Bilirubin 0.6 MG/DL (0.2-1.0) Sodium Level 134 MEQ/L (136-145) Potassium Level 5.3 MEQ/L (3.5-5.1) Chloride Level 97 MEQ/L (98-107) Carbon Dioxide Level 32.0 MEQ/L (21.0-32.0) Anion Gap 5 MEQ/L (5-15) Estimat Glomerular Filtration Rate 207 ML/MIN (>89) Blood Gas Puncture Site ART LINE Blood Gas Patient Temperature 98.6 Blood Gas HCO3 27 mmol/L (22-26) Blood Gas Base Excess 2.3 mmol/L (-2-2) Blood Gas Oxygen Saturation 96 % (90-100) Arterial Blood pH 7.38 (7.380-7.420) Arterial Blood Partial Pressure CO2 47 mmHg (38-42) Arterial Blood Partial Pressure O2 122 mmHg (61-120) Arterial Blood Oxygen Content 13.6 Vol % (12.0-20.0) Arterial Blood Carboxyhemoglobin 1.6 % (0-4) Arterial Blood Methemoglobin 1.2 % (0-2) Blood Gas Hemoglobin 10.0 G/DL (12.0-16.0) Oxygen Delivery Device VENTILATOR Blood Gas Ventilator Setting SEE COMMENTS Blood Gas Inspired Oxygen 40 % Result Diagram: 12/20/1671912/20/16719 Plan: Patient is s/p failed attempt to drain pericardial effusion. I revisited pericardial window with him and his family. The patient refused surgery again, so I have no plans to intervene. Please call if there is a change in decision. (1) Pericardial effusion Plan: attempted drainage by IR, unsuccessful will further discuss with Dr Huerta, pt adamantly did not want surgical pericardial window 12/18 (2) Non-small cell lung cancer Alethea Huerta MD Dec 20, 2016 12:12
--- NOTE | 2016-12-20 12:35 | EKG ---
Date Performed: 12/19/2016 Time Performed: 12:31:48 PTAGE: 61 years EKG: Marked sinus tachycardia Diffuse ST elevation new from the prior tracing Cannot exclude acu te pericarditis or acute injury Clinical correlation needed ABNORMAL ECG PREVIOUS TRACING : 12/17/2016 15.04 DOCTOR: Manfred Amaya Interpretating Date/Time 12/20/2016 12:33:45
[2016-12-20] MEDS: MIDAZOLAM 100 MG/NS 100 ML DRIP Premix IV PRN (13:11)
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
[2016-12-20 15:13] LABS: HEPARIN AB OD 0.347 O.D. (0.000-0.300); HEPARIN INDUCED PLATELET AB Weak Positive (NEGATIVE)
[2016-12-20] MEDS: MICAFUNGIN INJ 100 MG in SODIUM CHLORIDE 0.9% INJ 100 ML IV SCH (18:00)
--- NOTE | 2016-12-20 19:44 | PD.ONC.PN ---
Subjective Subjective Remarks acutely decompensated intubated and sedated cardiac tamponade Objective Data Date Time Temp Pulse Resp B/P (MAP) Pulse Ox O2 Delivery O2 Flow Rate FiO2 12/20/16 18:00 124 16 90/60 (70) 100 101/60 (74) 12/20/16 18:00 124 12/20/16 17:10 100 40 12/20/16 17:00 114 16 77/52 (60) 100 89/54 (66) 12/20/16 16:00 118 12/20/16 16:00 98.3 118 16 81/55 (64) 100 93/57 (69) 12/20/16 16:00 40 12/20/16 15:00 125 14 103/64 (77) 100 102/63 (76) 12/20/16 14:00 126 12/20/16 14:00 126 16 76/53 (61) 100 87/57 (67) 12/20/16 13:00 137 20 92/65 (74) 100 107/71 (83) 12/20/16 12:36 100 40 12/20/16 12:00 40 12/20/16 12:00 100.0 138 16 91/64 (73) 100 104/67 (79) 12/20/16 12:00 138 12/20/16 11:00 141 16 87/63 (71) 100 95/60 (72) 12/20/16 10:00 143 12/20/16 10:00 143 16 86/62 (70) 100 89/58 (68) 12/20/16 09:00 145 16 99/69 (79) 100 97/62 (74) 12/20/16 08:00 100.1 152 24 149/71 (97) 100 119/77 (91) 12/20/16 08:00 40 12/20/16 08:00 152 12/20/16 07:44 100 40 12/20/16 07:00 126 16 82/54 (63) 100 86/54 (65) 12/20/16 06:21 126 85/54 12/20/16 06:00 128 12/20/16 04:00 40 12/20/16 04:00 98.7 128 16 77/51 (60) 100 82/52 (62) 12/20/16 04:00 128 12/20/16 03:41 99 40 12/20/16 02:00 128 12/20/16 00:56 98 40 12/20/16 00:00 40 12/20/16 00:00 129 12/20/16 00:00 99.0 129 7 78/56 (63) 98 87/55 (66) 12/19/16 22:00 128 12/19/16 20:18 98 40 12/19/16 20:00 128 12/19/16 20:00 40 12/19/16 20:00 98.9 128 13 81/57 (65) 98 12/20/16 12/20/16 12/20/16 07:00 15:00 23:00 Intake Total 600 ml 546 ml 595 ml Output Total 700 ml 575 ml Balance -100 ml 546 ml 20 ml Result Diagram: 12/20/1620 12/20/16 0720 Laboratory Results Laboratory Tests Test 12/20/16 07:20 12/20/16 07:39 White Blood Count 9.5 TH/MM3 Red Blood Count 3.21 MIL/MM3 Hemoglobin 9.4 GM/DL Hematocrit 28.5 % Mean Corpuscular Volume 88.8 FL Mean Corpuscular Hemoglobin 29.3 PG Mean Corpuscular Hemoglobin Concent 33.0 % Red Cell Distribution Width 28.6 % Platelet Count 138 TH/MM3 Mean Platelet Volume 10.5 FL CBC Comment AUTO DIFF Differential Total Cells Counted 100 Neutrophils % (Manual) 78 % Band Neutrophils % 6 % Lymphocytes % 8 % Monocytes % 2 % Eosinophils % 3 % Neutrophils # (Manual) 8.3 TH/MM3 Metamyelocytes 3 % Myelocytes 0 % Differential Comment FINAL DIFF MANUAL Toxic Granulation 1+ Platelet Estimate LOW Platelet Morphology Comment ENLARGED Acanthocytes OCC Blood Urea Nitrogen 8 MG/DL Creatinine 0.42 MG/DL Random Glucose 103 MG/DL Total Protein 5.3 GM/DL Albumin 1.9 GM/DL Calcium Level 7.8 MG/DL Phosphorus Level 3.0 MG/DL Magnesium Level 1.8 MG/DL Alkaline Phosphatase 187 U/L Aspartate Amino Transf (AST/SGOT) 768 U/L Alanine Aminotransferase (ALT/SGPT) 250 U/L Total Bilirubin 0.6 MG/DL Sodium Level 134 MEQ/L Potassium Level 5.3 MEQ/L Chloride Level 97 MEQ/L Carbon Dioxide Level 32.0 MEQ/L Anion Gap 5 MEQ/L Estimat Glomerular Filtration Rate 207 ML/MIN Blood Gas Puncture Site ART LINE Blood Gas Patient Temperature 98.6 Blood Gas HCO3 27 mmol/L Blood Gas Base Excess 2.3 mmol/L Blood Gas Oxygen Saturation 96 % Arterial Blood pH 7.38 Arterial Blood Partial Pressure CO2 47 mmHg Arterial Blood Partial Pressure O2 122 mmHg Arterial Blood Oxygen Content 13.6 Vol % Arterial Blood Carboxyhemoglobin 1.6 % Arterial Blood Methemoglobin 1.2 % Blood Gas Hemoglobin 10.0 G/DL Oxygen Delivery Device VENTILATOR Blood Gas Ventilator Setting SEE COMMENTS Blood Gas Inspired Oxygen 40 % Culture Results Microbiology Date/Time Source Procedure Growth Status 12/19/16 09:57 Fluid Pericardial Fluid Gram Stain - Final Resulted 12/19/16 09:57 Fluid Pericardial Fluid Body Fluid Culture - Preliminary NO GROWTH IN 24 HOURS. Resulted Imaging Studies Last 24 hours Impressions Chest X-Ray 12/20/16 0000 Signed Impressions: Service Date/Time: December 07:53 - CONCLUSION: No significant interval change. Enrico Peñaloza MD Administered Medications Medications (Trade) Dose Ordered Sig/Ela Route PRN Reason Start Time Stop Time Status Last Admin Dose Admin Sodium Chloride (NS Flush) 2 ml BID IV FLUSH 12/17/16 21:00 12/20/16 09:09 Lactobacillus Acidophilus (Lactinex) 1 tab TID PO 12/18/16 09:00 12/20/16 18:00 Albuterol/ Ipratropium (Duoneb Neb) 1 ampule Q6HR NEB NEB 12/18/16 04:00 12/20/16 03:40 Albuterol/ Ipratropium (Duoneb Neb) 1 ampule Q2HR NEB PRN NEB wheezing 12/17/16 22:15 12/17/16 22:30 Acetaminophen/ Hydrocodone Bitart ([place] 10-325 Mg) 1 tab Q4H PRN PO PAIN 12/18/16 00:00 12/19/16 05:14 Levofloxacin/ Dextrose 150 ml @ 100 mls/hr Q24H IV 12/18/16 09:00 12/20/16 09:09 Furosemide (Lasix Inj) 20 mg BID@09,18 IV PUSH 12/18/16 09:00 Future Hold 12/18/16 18:26 Budesonide/ Formoterol Fumarate (Symbicort 80-4.5 Mcg Inh) 2 puff Q12HR INH 12/18/16 21:00 12/18/16 20:25 Fentanyl Citrate 250 ml @ 5 mls/hr TITRATE PRN IV SEDATION 12/19/16 08:15 12/20/16 12:34 Norepinephrine Bitartrate 250 ml @ 7.5 mls/hr TITRATE PRN IV Blood pressure management 12/19/16 08:15 12/20/16 06:21 Pantoprazole Sodium (Protonix Inj) 40 mg Q12HR IV PUSH 12/19/16 09:30 12/20/16 09:09 Chlorhexidine Gluconate (Peridex 0.12% Liq) 15 ml BID@08,20 OROPHARYNG 12/19/16 20:00 12/20/16 09:00 Micafungin Sodium 100 mg/Sodium Chloride 100 ml @ 100 mls/hr Q24H IV 12/19/16 17:00 12/20/16 18:00 Vancomycin HCl 1250 mg/Sodium Chloride 262.5 ml @ 250 mls/hr Q12H IV 12/19/16 18:00 12/20/16 18:49 Miscellaneous Information Patient in critical care unit? Ass... Q361D .XX 12/19/16 20:30 12/19/16 20:30 Chlorhexidine Gluconate (Chlorhexidine 2% Cloth) 3 pack DAILY@04 TOPICAL 12/20/16 04:00 12/24/16 04:01 12/20/16 04:00 Midazolam HCl 100 ml @ 2 mls/hr TITRATE PRN IV SEDATION 12/20/16 13:00 12/20/16 13:11 Objective Remarks GENERAL: acutely ill SKIN: Warm and dry. LYMPHATIC: No adenopathy. CARDIOVASCULAR: Regular rate and rhythm without murmurs. RESPIRATORY: Breath sounds equal bilaterally. No accessory muscle use. GASTROINTESTINAL: Abdomen soft, non-tender, nondistended. EXTREMITIES: No cyanosis, or edema. Assessment/Plan Problem List: (1) Pericardial effusion ICD Codes: I31.3 - Pericardial effusion (noninflammatory) (2) Acute hypoxemic respiratory failure ICD Codes: J96.01 - Acute respiratory failure with hypoxia (3) Thrombocytopenia ICD Codes: D69.6 - Thrombocytopenia, unspecified (4) Anemia of chronic disease ICD Codes: D63.8 - Anemia of chronic disease Status: Chronic Plan Daily cbc/coags/fibrinogen River Santana MD Dec 20, 2016 19:44
[2016-12-21] VITALS (32 sets, daily range): BP systolic 71–113; BP diastolic 50–70; PULSE 109–137; RESP 14–25; TEMP 98.6–100; O2SAT 94–100
[2016-12-21] MEDS: MIDAZOLAM 100 MG/NS 100 ML DRIP Premix IV PRN ×2 (02:36→22:44)
[2016-12-21] MEDS: CHLORHEXIDINE GLUCONATE 2 % 1 PACK (2 CLOTHS)(taper/protocol) TOPICAL SCH (03:36)
[2016-12-21] MEDS: RESP: ALBUTEROL 2.5 MG/IPRATROPIUM 0.5 MG NEB (SCH) NEB ×4 (04:04→20:32)
[2016-12-21] MEDS ORDERED: PHARMACY ORDERED LAB ONE (05:45)
[2016-12-21] MEDS: fentaNYL DRIP 250 ML IV PRN (05:57)
--- NOTE | 2016-12-21 06:04 | RADRPT ---
EXAM DATE/TIME: 12/21/2016 04:08 [facility] COMPARISON: CHEST SINGLE AP, December 20, 2016, 7:53. INDICATIONS : Evaluate for infiltrate MEDICAL HISTORY : None. SURGICAL HISTORY : None. ENCOUNTER: Subsequent ACUITY: 1 week PAIN SCORE: Non-responsive. LOCATION: Bilateral chest FINDINGS: A single view of the chest demonstrates stable right apical density and volume loss. Endotracheal tub e, nasogastric tube and right-sided [id number] catheter are unchanged. Chronic interstitial densit ies. CONCLUSION: 1. Stable chest. 2. Right apical density and chronic interstitial densities are stable. Fer Nelson MD on December 21, 2016 at 6:02 Board Certified Radiologist. This report was verified electronically.
[2016-12-21] MEDS: VANCOMYCIN INJ 1,250 MG in SODIUM CHLOR 0.9% 250 ML INJ 250 ML IV SCH (06:13)
[2016-12-21] MEDS: NOREPINEPHRINE-DEXTROSE DRIP 250 ML IV PRN ×2 (07:26→18:00)
[2016-12-21] MEDS: INSULIN ASPART SUPPLEMENTAL SCALE SQ SCH ×4 (08:00→19:59)
[2016-12-21] MEDS: LEVOFLOXACIN 750 MG PREMIX INJ 150 ML IV SCH (08:41)
[2016-12-21] MEDS: SODIUM CHLORIDE 0.9% FLUSH 10 ML FLUSH IV FLUSH PRN (08:41)
[2016-12-21] MEDS: SODIUM CHLORIDE 0.9% FLUSH 10 ML FLUSH IV FLUSH SCH ×2 (08:41→19:58)
[2016-12-21] MEDS: CHLORHEXIDINE GLUCONATE 0.12% 15 ML CUP OROPHARYNG SCH ×2 (08:41→19:57)
[2016-12-21] MEDS: LACTOBACILLUS ACIDOPHILUS TAB PO SCH ×3 (08:41→16:54)
[2016-12-21] MEDS: PANTOPRAZOLE SODIUM 40 MG VIAL IV PUSH SCH ×2 (08:41→19:59)
[2016-12-21 08:58] LABS: HEMATOCRIT 27.3 % (39.0-51.0); MEAN CELL VOLUME 88.8 FL (80.0-100.0); MEAN CORPUSCULAR HEMOGLOBIN 28.6 PG (27.0-34.0); MEAN CORPUSCULAR HGB CONC 32.2 % (32.0-36.0); PLATELET COUNT 110 TH/MM3 (150-450); RED BLOOD COUNT 3.07 MIL/MM3 (4.50-5.90); RED CELL DISTRIBUTION WIDTH 28.2 % (11.6-17.2); WHITE BLOOD COUNT 11.3 TH/MM3 (4.0-11.0)
[2016-12-21] MEDS: BUDESONIDE-FORMOTEROL 80/4.5 MCG INHALER INH SCH ×2 (09:00→19:58)
[2016-12-21 09:22] LABS: BICARBONATE 30.3 MEQ/L (21.0-32.0); POTASSIUM 4.5 MEQ/L (3.5-5.1)
[2016-12-21 09:24] LABS: MAGNESIUM 1.8 MG/DL (1.5-2.5); VANCOMYCIN TROUGH 13.5 MCG/ML (5.0-10.0)
[2016-12-21 09:37] LABS: REVIEW FLAG FINAL
--- NOTE | 2016-12-21 10:33 | PD.CARD.PN ---
Subjective Subjective Remarks On vent Objective Medications Current Medications Medications (Trade) Dose Ordered Sig/Ela Route Start Time Stop Time Status Last Admin (NS Flush) 2 ml UNSCH PRN IV FLUSH 12/17/16 19:00 12/21/16 08:41 (NS Flush) 2 ml BID IV FLUSH 12/17/16 21:00 12/21/16 08:41 (Zofran Inj) 4 mg Q6H PRN IVP 12/17/16 19:00 (Narcan Inj) 0.4 mg UNSCH PRN IV PUSH 12/17/16 19:00 (Milk Of Magnesia Liq) 30 ml Q12H PRN PO 12/17/16 19:00 (Lactinex) 1 tab TID PO 12/18/16 09:00 12/21/16 08:41 (Duoneb Neb) 1 ampule Q6HR NEB NEB 12/18/16 04:00 12/21/16 09:04 (Duoneb Neb) 1 ampule Q2HR NEB PRN NEB 12/17/16 22:15 12/17/16 22:30 ([place] 10-325 Mg) 1 tab Q4H PRN PO 12/18/16 00:00 12/19/16 05:14 Levofloxacin/ Dextrose 150 ml @ 100 mls/hr Q24H IV 12/18/16 09:00 12/21/16 08:41 (Lasix Inj) 20 mg BID@09,18 IV PUSH 12/18/16 09:00 Future Hold 12/18/16 18:26 (D50w (Vial) Inj) 50 ml UNSCH PRN IV PUSH 12/18/16 11:30 (Glucagon Inj) 1 mg UNSCH PRN OTHER 12/18/16 11:30 (NovoLOG SUPPLEMENTAL SCALE) 1 ACHS SLIDING SCALE SQ 12/18/16 12:00 (Symbicort 80-4.5 Mcg Inh) 2 puff Q12HR INH 12/18/16 21:00 12/18/16 20:25 (Proair Hfa Inh) 2 puff Q4H PRN INH 12/18/16 19:00 Fentanyl Citrate 250 ml @ 5 mls/hr TITRATE PRN IV 12/19/16 08:15 12/21/16 05:57 Norepinephrine Bitartrate 250 ml @ 7.5 mls/hr TITRATE PRN IV 12/19/16 08:15 12/21/16 07:26 (Brethine Inj) 1 mg UNSCH PRN SQ 12/19/16 08:15 (Protonix Inj) 40 mg Q12HR IV PUSH 12/19/16 09:30 12/21/16 08:41 (Peridex 0.12% Liq) 15 ml BID@08,20 OROPHARYNG 12/19/16 20:00 12/21/16 08:41 Pharmacy Profile Note 0 ml @ 0 mls/hr UNSCH OTHER 12/19/16 15:30 Micafungin Sodium 100 mg/Sodium Chloride 100 ml @ 100 mls/hr Q24H IV 12/19/16 17:00 12/20/16 18:00 Vancomycin HCl 1250 mg/Sodium Chloride 262.5 ml @ 250 mls/hr Q12H IV 12/19/16 18:00 12/21/16 06:13 Miscellaneous Information Patient in critical care unit? Ass... Q361D .XX 12/19/16 20:30 12/19/16 20:30 (Chlorhexidine 2% Cloth) 3 pack DAILY@04 TOPICAL 12/20/16 04:00 12/24/16 04:01 12/21/16 03:36 (Chlorhexidine 2% Cloth) 3 pack UNSCH PRN TOPICAL 12/19/16 20:30 12/24/16 20:24 Midazolam HCl 100 ml @ 2 mls/hr TITRATE PRN IV 12/20/16 13:00 12/21/16 02:36 Vital Signs / I&O Vital Signs Date Time Temp Pulse Resp B/P (MAP) Pulse Ox O2 Delivery O2 Flow Rate FiO2 12/21/16 09:00 117 16 90/64 (73) 100 98/57 (71) 12/21/16 08:00 98.6 112 16 78/56 (63) 98 80/51 (61) 12/21/16 08:00 112 12/21/16 08:00 40 12/21/16 07:53 98 40 12/21/16 07:26 116 97/58 12/21/16 07:00 117 16 91/65 (74) 100 101/60 (74) 12/21/16 06:00 119 17 83/63 (70) 98 100/61 (74) 12/21/16 06:00 119 12/21/16 05:30 115 12/21/16 05:30 115 16 77/55 (62) 97 84/54 (64) 12/21/16 05:00 116 12/21/16 05:00 116 16 75/56 (62) 98 84/54 (64) 12/21/16 04:30 116 16 77/56 (63) 98 84/55 (65) 12/21/16 04:30 116 12/21/16 04:04 97 40 12/21/16 04:00 98.7 116 16 76/59 (65) 97 86/57 (67) 12/21/16 04:00 116 12/21/16 04:00 40 12/21/16 03:30 117 12/21/16 03:30 117 16 79/57 (64) 97 87/57 (67) 12/21/16 03:00 120 12/21/16 03:00 120 16 76/58 (64) 97 88/58 (68) 12/21/16 02:30 121 16 85/60 (68) 98 96/62 (73) 12/21/16 02:30 121 12/21/16 02:00 124 12/21/16 02:00 124 16 98/70 (79) 99 113/67 (82) 12/21/16 01:30 109 16 73/50 (58) 98 80/52 (61) 12/21/16 01:30 109 12/21/16 01:00 109 12/21/16 01:00 109 16 71/55 (60) 98 82/53 (63) 12/21/16 00:38 99 40 12/21/16 00:30 109 12/21/16 00:30 109 16 71/51 (58) 99 80/52 (61) 12/21/16 00:00 40 12/21/16 00:00 110 16 73/55 (61) 100 84/53 (63) 12/21/16 00:00 110 12/20/16 22:00 116 12/20/16 21:11 114 86/52 12/20/16 20:34 100 40 12/20/16 20:00 98.7 115 16 81/54 (63) 100 90/54 (66) 12/20/16 20:00 40 12/20/16 18:00 124 16 90/60 (70) 100 101/60 (74) 12/20/16 18:00 124 12/20/16 17:10 100 40 12/20/16 17:00 114 16 77/52 (60) 100 89/54 (66) 12/20/16 16:00 118 12/20/16 16:00 98.3 118 16 81/55 (64) 100 93/57 (69) 12/20/16 16:00 40 12/20/16 15:00 125 14 103/64 (77) 100 102/63 (76) 12/20/16 14:00 126 12/20/16 14:00 126 16 76/53 (61) 100 87/57 (67) 12/20/16 13:00 137 20 92/65 (74) 100 107/71 (83) 12/20/16 12:36 100 40 12/20/16 12:00 40 12/20/16 12:00 100.0 138 16 91/64 (73) 100 104/67 (79) 12/20/16 12:00 138 12/20/16 11:00 141 16 87/63 (71) 100 95/60 (72) I/O 12/20/16 12/20/16 12/20/16 12/21/16 12/21/16 12/21/16 07:00 15:00 23:00 07:00 15:00 23:00 Intake Total 600 ml 546 ml 1195 ml 350 ml 276 ml Output Total 700 ml 575 ml 350 ml Balance -100 ml 546 ml 620 ml 0 ml 276 ml IV Total 600 ml 546 ml 1195 ml 350 ml 276 ml Output Urine Total 700 ml 575 ml 350 ml Physical Exam Awake, nods head to questions Chest: B/L rhochi CV distant HS tele sinus tach Laboratory Laboratory Tests Test 12/21/16 08:00 White Blood Count 11.3 TH/MM3 Red Blood Count 3.07 MIL/MM3 Hemoglobin 8.8 GM/DL Hematocrit 27.3 % Mean Corpuscular Volume 88.8 FL Mean Corpuscular Hemoglobin 28.6 PG Mean Corpuscular Hemoglobin Concent 32.2 % Red Cell Distribution Width 28.2 % Platelet Count 110 TH/MM3 Mean Platelet Volume 9.9 FL Blood Urea Nitrogen 7 MG/DL Creatinine 0.43 MG/DL Random Glucose 93 MG/DL Calcium Level 8.1 MG/DL Phosphorus Level 2.0 MG/DL Magnesium Level 1.8 MG/DL Sodium Level 133 MEQ/L Potassium Level 4.5 MEQ/L Chloride Level 97 MEQ/L Carbon Dioxide Level 30.3 MEQ/L Anion Gap 6 MEQ/L Estimat Glomerular Filtration Rate 202 ML/MIN Vancomycin Level Trough 13.5 MCG/ML Imaging Last 24 hours Impressions Chest X-Ray 12/21/16 0600 Signed Impressions: Service Date/Time: Wednesday, December 21, 2016 04:08 - CONCLUSION: 1. Stable chest. 2. Right apical density and chronic interstitial densities are stable. Fer Nelson MD Assessment and Plan Problem List: (1) Pericardial effusion ICD Codes: I31.3 - Pericardial effusion (noninflammatory) (2) Non-small cell lung cancer Status: Chronic Assessment and Plan STAT echo. If tamponade reconfirmed, patient told me he was agreaable to pericardial window. Manfred Amaya MD Dec 21, 2016 10:33
--- NOTE | 2016-12-21 12:21 | ECHRPT ---
Indication: Pericardial Effussion CONCLUSIONS There is a moderate pericardial effusion present. Echocardiographic features were consistent with hemodynamically significant pericardial effusion and tamponade physiology. BP: 98 / 57 HR: 117 Rhythm: Sinus Technical Quality:Fair FINDINGS PERICARDIUM There is a moderate pericardial effusion present. Echocardiographic features were consistent with hemodynamically significant pericardial effusion and tamponade physiology. Adis White MD (Electronically Signed) Final Date:21 December 2016 12:20
[2016-12-21] MEDS ORDERED: POTASSIUM CHLORIDE 25 MEQ EFFERVESCENT TAB PO PRN (14:30)
[2016-12-21] MEDS ORDERED: ICU - POTASSIUM CHLORIDE/AQUEOUS SOLN 40 MEQ/100 ML IVPB IV PRN (14:30)
[2016-12-21] MEDS ORDERED: ICU - POTASSIUM PHOSPHATE 30 MMOL/NS 250 ML IV PRN ×2 (14:30)
[2016-12-21] MEDS ORDERED: ICU - MAGNESIUM SULFATE 2 GM/NS 100 ML IV PRN ×2 (14:30)
[2016-12-21] MEDS ORDERED: ICU - MAGNESIUM OXIDE 400 MG TAB PO PRN (14:30)
[2016-12-21] MEDS ORDERED: ICU - MAGNESIUM SULFATE 4 GM/NS 100 ML IV PRN ×2 (14:30)
[2016-12-21] MEDS ORDERED: ICU - POTASSIUM PHOSPHATE MONOBASIC 500 MG TAB PO PRN (14:30)
[2016-12-21] MEDS ORDERED: ICU - POTASSIUM CHLORIDE/AQUEOUS SOLN 20 MEQ/100 ML IVPB IV PRN (14:30)
[2016-12-21] MEDS ORDERED: ICU - D/C ICU ELECTROLYTE ORDERS PRN (14:30)
[2016-12-21] MEDS ORDERED: ICU - SODIUM PHOSPHATE 30 MMOL/NS 250 ML IV PRN ×2 (14:30)
[2016-12-21] MEDS ORDERED: ICU - CALL ORDERING PHYSICIAN PRN (14:30)
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
--- NOTE | 2016-12-21 15:48 | PD.ONC.PN ---
Subjective Subjective Remarks critically ill intubated hypotensive/bradycardic cardiac tamponade evaluated by CT surgery for pericardial window Hb 8.8 thrombocytopenia 110 Objective Data Date Time Temp Pulse Resp B/P (MAP) Pulse Ox O2 Delivery O2 Flow Rate FiO2 12/21/16 14:00 135 12/21/16 13:00 129 17 95/70 (78) 98 103/62 (76) 12/21/16 12:00 94 40 12/21/16 12:00 40 12/21/16 12:00 100.0 120 17 87/63 (71) 96 91/58 (69) 12/21/16 12:00 120 12/21/16 11:00 128 16 93/68 (76) 97 90/54 (66) 12/21/16 10:00 118 16 84/64 (71) 99 95/57 (70) 12/21/16 10:00 118 12/21/16 09:00 117 16 90/64 (73) 100 98/57 (71) 12/21/16 08:00 98.6 112 16 78/56 (63) 98 80/51 (61) 12/21/16 08:00 112 12/21/16 08:00 40 12/21/16 07:53 98 40 12/21/16 07:26 116 97/58 12/21/16 07:00 117 16 91/65 (74) 100 101/60 (74) 12/21/16 06:00 119 17 83/63 (70) 98 100/61 (74) 12/21/16 06:00 119 12/21/16 05:30 115 12/21/16 05:30 115 16 77/55 (62) 97 84/54 (64) 12/21/16 05:00 116 12/21/16 05:00 116 16 75/56 (62) 98 84/54 (64) 12/21/16 04:30 116 16 77/56 (63) 98 84/55 (65) 12/21/16 04:30 116 12/21/16 04:04 97 40 12/21/16 04:00 98.7 116 16 76/59 (65) 97 86/57 (67) 12/21/16 04:00 116 12/21/16 04:00 40 12/21/16 03:30 117 12/21/16 03:30 117 16 79/57 (64) 97 87/57 (67) 12/21/16 03:00 120 12/21/16 03:00 120 16 76/58 (64) 97 88/58 (68) 12/21/16 02:30 121 16 85/60 (68) 98 96/62 (73) 12/21/16 02:30 121 12/21/16 02:00 124 12/21/16 02:00 124 16 98/70 (79) 99 113/67 (82) 12/21/16 01:30 109 16 73/50 (58) 98 80/52 (61) 12/21/16 01:30 109 12/21/16 01:00 109 12/21/16 01:00 109 16 71/55 (60) 98 82/53 (63) 12/21/16 00:38 99 40 12/21/16 00:30 109 12/21/16 00:30 109 16 71/51 (58) 99 80/52 (61) 12/21/16 00:00 40 12/21/16 00:00 110 16 73/55 (61) 100 84/53 (63) 12/21/16 00:00 110 12/20/16 22:00 116 12/20/16 21:11 114 86/52 12/20/16 20:34 100 40 12/20/16 20:00 98.7 115 16 81/54 (63) 100 90/54 (66) 12/20/16 20:00 40 12/20/16 18:00 124 16 90/60 (70) 100 101/60 (74) 12/20/16 18:00 124 12/20/16 17:10 100 40 12/20/16 17:00 114 16 77/52 (60) 100 89/54 (66) 12/20/16 16:00 118 12/20/16 16:00 98.3 118 16 81/55 (64) 100 93/57 (69) 12/20/16 16:00 40 12/21/16 12/21/16 12/21/16 07:00 15:00 23:00 Intake Total 350 ml 676 ml Output Total 350 ml Balance 0 ml 676 ml Result Diagram: 12/21/16 0800 12/21/16 08 Laboratory Results Laboratory Tests Test 12/21/16 08:00 White Blood Count 11.3 TH/MM3 Red Blood Count 3.07 MIL/MM3 Hemoglobin 8.8 GM/DL Hematocrit 27.3 % Mean Corpuscular Volume 88.8 FL Mean Corpuscular Hemoglobin 28.6 PG Mean Corpuscular Hemoglobin Concent 32.2 % Red Cell Distribution Width 28.2 % Platelet Count 110 TH/MM3 Mean Platelet Volume 9.9 FL Blood Urea Nitrogen 7 MG/DL Creatinine 0.43 MG/DL Random Glucose 93 MG/DL Calcium Level 8.1 MG/DL Phosphorus Level 2.0 MG/DL Magnesium Level 1.8 MG/DL Sodium Level 133 MEQ/L Potassium Level 4.5 MEQ/L Chloride Level 97 MEQ/L Carbon Dioxide Level 30.3 MEQ/L Anion Gap 6 MEQ/L Estimat Glomerular Filtration Rate 202 ML/MIN Vancomycin Level Trough 13.5 MCG/ML Culture Results Microbiology Date/Time Source Procedure Growth Status 12/19/16 09:57 Fluid Pericardial Fluid Gram Stain - Final Resulted 12/19/16 09:57 Fluid Pericardial Fluid Body Fluid Culture - Preliminary NO GROWTH IN 48 HOURS. Resulted Imaging Studies Last 24 hours Impressions Chest X-Ray 12/21/16 0600 Signed Impressions: Service Date/Time: Wednesday, December 21, 2016 04:08 - CONCLUSION: 1. Stable chest. 2. Right apical density and chronic interstitial densities are stable. Fer Nelson MD Administered Medications Medications (Trade) Dose Ordered Sig/Ela Route PRN Reason Start Time Stop Time Status Last Admin Dose Admin Sodium Chloride (NS Flush) 2 ml UNSCH PRN IV FLUSH FLUSH AFTER USING IV ACCESS 12/17/16 19:00 12/21/16 08:41 Sodium Chloride (NS Flush) 2 ml BID IV FLUSH 12/17/16 21:00 12/21/16 08:41 Lactobacillus Acidophilus (Lactinex) 1 tab TID PO 12/18/16 09:00 12/21/16 13:55 Albuterol/ Ipratropium (Duoneb Neb) 1 ampule Q6HR NEB NEB 12/18/16 04:00 12/21/16 09:04 Albuterol/ Ipratropium (Duoneb Neb) 1 ampule Q2HR NEB PRN NEB wheezing 12/17/16 22:15 12/17/16 22:30 Acetaminophen/ Hydrocodone Bitart (Woodworth 10-325 Mg) 1 tab Q4H PRN PO PAIN 12/18/16 00:00 12/19/16 05:14 Levofloxacin/ Dextrose 150 ml @ 100 mls/hr Q24H IV 12/18/16 09:00 12/21/16 08:41 Furosemide (Lasix Inj) 20 mg BID@09,18 IV PUSH 12/18/16 09:00 Future Hold 12/18/16 18:26 Budesonide/ Formoterol Fumarate (Symbicort 80-4.5 Mcg Inh) 2 puff Q12HR INH 12/18/16 21:00 12/18/16 20:25 Fentanyl Citrate 250 ml @ 5 mls/hr TITRATE PRN IV SEDATION 12/19/16 08:15 12/21/16 05:57 Norepinephrine Bitartrate 250 ml @ 7.5 mls/hr TITRATE PRN IV Blood pressure management 12/19/16 08:15 12/21/16 07:26 Pantoprazole Sodium (Protonix Inj) 40 mg Q12HR IV PUSH 12/19/16 09:30 12/21/16 08:41 Chlorhexidine Gluconate (Peridex 0.12% Liq) 15 ml BID@, OROPHARYNG 12/19/16 20:00 12/21/16 08:41 Micafungin Sodium 100 mg/Sodium Chloride 100 ml @ 100 mls/hr Q24H IV 12/19/16 17:00 12/20/16 18:00 Miscellaneous Information Patient in critical care unit? Ass... [id number] .[id number] 12/19/16 20:30 12/19/16 20:30 Chlorhexidine Gluconate (Chlorhexidine 2% Cloth) 3 pack DAILY@04 TOPICAL 12/20/16 04:00 12/24/16 04:01 12/21/16 03:36 Midazolam HCl 100 ml @ 2 mls/hr TITRATE PRN IV SEDATION 12/20/16 13:00 12/21/16 02:36 Objective Remarks GENERAL: acuetly ill SKIN: Warm and dry. LYMPHATIC: No adenopathy. CARDIOVASCULAR: Regular rate and rhythm without murmurs. RESPIRATORY: Breath sounds equal bilaterally. No accessory muscle use. GASTROINTESTINAL: Abdomen soft, non-tender, nondistended. EXTREMITIES: No cyanosis, or edema. Assessment/Plan Problem List: (1) Acute blood loss anemia ICD Codes: D62 - Acute posthemorrhagic anemia (2) Thrombocytopenia ICD Codes: D69.6 - Thrombocytopenia, unspecified (3) Pleural effusion ICD Codes: J90 - Pleural effusion, not elsewhere classified Status: Acute (4) Left pulmonary infiltrate on CXR ICD Codes: R91.8 - Other nonspecific abnormal finding of lung field Status: Acute (5) Pericardial effusion ICD Codes: I31.3 - Pericardial effusion (noninflammatory) Attending Statement daily cbc and coags check daily fibrinogen River Santana MD Dec 21, 2016 15:48
--- NOTE | 2016-12-21 16:16 | PD.CAR.PN ---
CVT Progress Note Subjective/Hospital Course: 61-year-old male who was admitted on 12/17 2016 with complaints of dyspnea. The patient notably has a medical history significant for lung cancer stage III status post chemotherapy and radiation therapy in 2011. Upon admission to [facility] workup was performed which was noted with a significant pericardial effusion. An echo was performed on 12/18/16 and it noted a significant pericardial effusion with cardiac tamponade physiology. Patient has a history of a chronic pericardial effusion. He refused surgical pericardial window, IR was consulted for pericardiocentesis 12/19 pt had a Halicat response to IMC secondary to increasing dyspnea with sinus tachycardia and acute decompensation. per [facility] note PaO2 was noted to be 50, tachypnea, dyspneic on CPAP. He was emergently intubated and sent emergently for CT-guided pericardiocentesis by interventional radiology. IR removed 5cc redness drainage / Unsuccessful pericardial drain placement. The pericardial effusion has significantly decreased in size from yesterday's examination and attempting drainage at 2 separate locations was unsuccessful. palliative care following pt intubated sedated on vent remains tachycardiac , no pressors 12/20/16 Patient remains on vent, but is awake and alert 12/21 repeat echo noted and eval by Dr Amaya was asked to see pt as per Dr Amaya regarding pericardial window Dr Amaya spoke with sister in law Maryana and she saind she would talk to her ( brother) healthcare surrogate pt nodded no to any surgical procedure, Dr Crane, Dr Amaya , and myself at bedside continue with supportive care and palliative measures Objective: Vital Signs Date Time Temp Pulse Resp B/P (MAP) Pulse Ox O2 Delivery O2 Flow Rate FiO2 12/21/16 15:54 95 40 12/21/16 14:00 135 12/21/16 13:00 129 17 95/70 (78) 98 103/62 (76) 12/21/16 12:00 94 40 12/21/16 12:00 40 12/21/16 12:00 100.0 120 17 87/63 (71) 96 91/58 (69) 12/21/16 12:00 120 12/21/16 11:00 128 16 93/68 (76) 97 90/54 (66) 12/21/16 10:00 118 16 84/64 (71) 99 95/57 (70) 12/21/16 10:00 118 12/21/16 09:00 117 16 90/64 (73) 100 98/57 (71) 12/21/16 08:00 98.6 112 16 78/56 (63) 98 80/51 (61) 12/21/16 08:00 112 12/21/16 08:00 40 12/21/16 07:53 98 40 12/21/16 07:26 116 97/58 12/21/16 07:00 117 16 91/65 (74) 100 101/60 (74) 12/21/16 06:00 119 17 83/63 (70) 98 100/61 (74) 12/21/16 06:00 119 12/21/16 05:30 115 12/21/16 05:30 115 16 77/55 (62) 97 84/54 (64) 12/21/16 05:00 116 12/21/16 05:00 116 16 75/56 (62) 98 84/54 (64) 12/21/16 04:30 116 16 77/56 (63) 98 84/55 (65) 12/21/16 04:30 116 12/21/16 04:04 97 40 12/21/16 04:00 98.7 116 16 76/59 (65) 97 86/57 (67) 12/21/16 04:00 116 12/21/16 04:00 40 12/21/16 03:30 117 12/21/16 03:30 117 16 79/57 (64) 97 87/57 (67) 12/21/16 03:00 120 12/21/16 03:00 120 16 76/58 (64) 97 88/58 (68) 12/21/16 02:30 121 16 85/60 (68) 98 96/62 (73) 12/21/16 02:30 121 12/21/16 02:00 124 12/21/16 02:00 124 16 98/70 (79) 99 113/67 (82) 12/21/16 01:30 109 16 73/50 (58) 98 80/52 (61) 12/21/16 01:30 109 12/21/16 01:00 109 12/21/16 01:00 109 16 71/55 (60) 98 82/53 (63) 12/21/16 00:38 99 40 12/21/16 00:30 109 12/21/16 00:30 109 16 71/51 (58) 99 80/52 (61) 12/21/16 00:00 40 12/21/16 00:00 110 16 73/55 (61) 100 84/53 (63) 12/21/16 00:00 110 12/20/16 22:00 116 12/20/16 21:11 114 86/52 12/20/16 20:34 100 40 12/20/16 20:00 98.7 115 16 81/54 (63) 100 90/54 (66) 12/20/16 20:00 40 12/20/16 18:00 124 16 90/60 (70) 100 101/60 (74) 12/20/16 18:00 124 12/20/16 17:10 100 40 12/20/16 17:00 114 16 77/52 (60) 100 89/54 (66) Labs: Laboratory Tests Test 12/21/16 08:00 White Blood Count 11.3 TH/MM3 (4.0-11.0) Red Blood Count 3.07 MIL/MM3 (4.50-5.90) Hemoglobin 8.8 GM/DL (13.0-17.0) Hematocrit 27.3 % (39.0-51.0) Mean Corpuscular Volume 88.8 FL (80.0-100.0) Mean Corpuscular Hemoglobin 28.6 PG (27.0-34.0) Mean Corpuscular Hemoglobin Concent 32.2 % (32.0-36.0) Red Cell Distribution Width 28.2 % (11.6-17.2) Platelet Count 110 TH/MM3 (150-450) Mean Platelet Volume 9.9 FL (7.0-11.0) Blood Urea Nitrogen 7 MG/DL (7-18) Creatinine 0.43 MG/DL (0.60-1.30) Random Glucose 93 MG/DL (74-106) Calcium Level 8.1 MG/DL (8.5-10.1) Phosphorus Level 2.0 MG/DL (2.5-4.9) Magnesium Level 1.8 MG/DL (1.5-2.5) Sodium Level 133 MEQ/L (136-145) Potassium Level 4.5 MEQ/L (3.5-5.1) Chloride Level 97 MEQ/L (98-107) Carbon Dioxide Level 30.3 MEQ/L (21.0-32.0) Anion Gap 6 MEQ/L (5-15) Estimat Glomerular Filtration Rate 202 ML/MIN (>89) Vancomycin Level Trough 13.5 MCG/ML (5.0-10.0) Result Diagram: 12/21/16 0800 12/21/16 0800 (1) Pericardial effusion Plan: attempted drainage by IR, unsuccessful will further discuss with Dr Huerta, pt adamantly did not want surgical pericardial window 12/18 (2) Non-small cell lung cancer Amanda Astorga Dec 21, 2016 16:16
[2016-12-21] MEDS: MICAFUNGIN INJ 100 MG in SODIUM CHLORIDE 0.9% INJ 100 ML IV SCH (16:54)
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
[2016-12-21] MEDS ORDERED: VANCOMYCIN INJ 1,500 MG in SODIUM CHLOR 0.9% 250 ML INJ 250 ML IV SCH (18:00)
[2016-12-21] MEDS: VANCOMYCIN INJ 1,500 MG in SODIUM CHLORID 0.9% 500 ML INJ 500 ML IV SCH (19:58)
[2016-12-22] VITALS (15 sets, daily range): BP systolic 81–102; BP diastolic 52–65; PULSE 106–140; RESP 13–25; TEMP 98.4–101.7; O2SAT 94–99
[2016-12-22] MEDS ORDERED: AMIODARONE INJ 150 MG in DEXTROSE 5% IN WATER 100ML INJ 100 ML IV ONE ×2 (02:37)
[2016-12-22] MEDS ORDERED: AMIODARONE INJ 900 MG in DEXTROSE 5% IN WATE 500 ML INJ 482 ML IV PRN ×2 (02:47)
[2016-12-22] MEDS ORDERED: AMIODARONE INJ 450 MG in DEXTROSE 5% IN WATE(EXCEL) INJ 241 ML IV PRN ×2 (03:00)
[2016-12-22] MEDS: RESP: ALBUTEROL 2.5 MG/IPRATROPIUM 0.5 MG NEB (SCH) NEB (03:56)
[2016-12-22] MEDS: CHLORHEXIDINE GLUCONATE 2 % 1 PACK (2 CLOTHS)(taper/protocol) TOPICAL SCH (04:00)
[2016-12-22 04:15] LABS: HEMATOCRIT 30.3 % (39.0-51.0); MEAN CELL VOLUME 89.4 FL (80.0-100.0); MEAN CORPUSCULAR HEMOGLOBIN 28.6 PG (27.0-34.0); MEAN CORPUSCULAR HGB CONC 32.1 % (32.0-36.0); PLATELET COUNT 128 TH/MM3 (150-450); RED BLOOD COUNT 3.39 MIL/MM3 (4.50-5.90); RED CELL DISTRIBUTION WIDTH 29.3 % (11.6-17.2)
[2016-12-22 04:17] LABS: REVIEW FLAG FINAL
[2016-12-22 04:42] LABS: BICARBONATE 30.4 MEQ/L (21.0-32.0); MAGNESIUM 1.8 MG/DL (1.5-2.5); POTASSIUM 5.1 MEQ/L (3.5-5.1)
[2016-12-22] MEDS: VANCOMYCIN INJ 1,500 MG in SODIUM CHLORID 0.9% 500 ML INJ 500 ML IV SCH ×2 (05:40→18:00)
[2016-12-22] MEDS: NOREPINEPHRINE-DEXTROSE DRIP 250 ML IV PRN ×3 (06:31→20:13)
[2016-12-22] MEDS: INSULIN ASPART SUPPLEMENTAL SCALE SQ SCH ×4 (08:00→20:12)
[2016-12-22] MEDS: CHLORHEXIDINE GLUCONATE 0.12% 15 ML CUP OROPHARYNG SCH ×2 (08:00→20:00)
[2016-12-22] MEDS: SODIUM CHLORIDE 0.9% FLUSH 10 ML FLUSH IV FLUSH SCH ×2 (09:00→20:11)
[2016-12-22] MEDS: LACTOBACILLUS ACIDOPHILUS TAB PO SCH ×3 (09:51→18:00)
[2016-12-22] MEDS: PANTOPRAZOLE SODIUM 40 MG VIAL IV PUSH SCH ×2 (09:51→20:12)
[2016-12-22] MEDS: LEVOFLOXACIN 750 MG PREMIX INJ 150 ML IV SCH (09:52)
[2016-12-22] MEDS: MIDAZOLAM 100 MG/NS 100 ML DRIP Premix IV PRN (13:29)
[2016-12-22] MEDS: fentaNYL DRIP 250 ML IV PRN (13:30)
--- NOTE | 2016-12-22 17:13 | EKG ---
Date Performed: 12/22/2016 Time Performed: 02:22:36 PTAGE: 61 years EKG: Probable sinus tachycardia or atrial flutter with 2:1 block Left axis deviation Incomplete LBBB Inferior infarct - age undetermined Ant/septal and lateral T wave changes are nonspecific Low QR S voltages in precordial leads Abnormal ECG Compared to PREVIOUS TRACING The tachycardia and LBBB?IVCD is new DOCTOR: Ladan Ramirez Interpretating Date/Time 12/22/2016 17:11:31
[2016-12-22] MEDS: MICAFUNGIN INJ 100 MG in SODIUM CHLORIDE 0.9% INJ 100 ML IV SCH (18:29)
[2016-12-22] MEDS ORDERED: MIDAZOLAM 100 MG/100 ML INJ 100 ML IV PRN (18:30)
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
[2016-12-22] MEDS: SODIUM CHLOR 0.9% 1000 ML INJ 1,000 ML IV SCH (20:20)
[2016-12-22] MEDS: BUDESONIDE-FORMOTEROL 80/4.5 MCG INHALER INH SCH (20:21)
[2016-12-22] MEDS: RESP: ALBUTEROL 2.5 MG/IPRATROPIUM 0.5 MG NEB (PRN) NEB (20:53)
[2016-12-23] VITALS (17 sets, daily range): BP systolic 81–130; BP diastolic 59–80; PULSE 101–132; RESP 13–17; TEMP 99.2–100.1; O2SAT 97–100
[2016-12-23] MEDS: NOREPINEPHRINE-DEXTROSE DRIP 250 ML IV PRN ×3 (03:00→17:26)
[2016-12-23] MEDS: CHLORHEXIDINE GLUCONATE 2 % 1 PACK (2 CLOTHS)(taper/protocol) TOPICAL SCH (03:00)
[2016-12-23 04:43] LABS: HEMATOCRIT 24.7 % (39.0-51.0); MEAN CELL VOLUME 90.2 FL (80.0-100.0); MEAN CORPUSCULAR HGB CONC 33.2 % (32.0-36.0); PLATELET COUNT 55 TH/MM3 (150-450); RED BLOOD COUNT 2.73 MIL/MM3 (4.50-5.90); RED CELL DISTRIBUTION WIDTH 28.8 % (11.6-17.2); WHITE BLOOD COUNT 10.1 TH/MM3 (4.0-11.0)
[2016-12-23 04:58] LABS: REVIEW FLAG FINAL
[2016-12-23 05:01] LABS: BICARBONATE 30.3 MEQ/L (21.0-32.0); MAGNESIUM 1.6 MG/DL (1.5-2.5); POTASSIUM 4.4 MEQ/L (3.5-5.1)
[2016-12-23] MEDS ORDERED: PHARMACY ORDERED LAB ONE (05:45)
--- NOTE | 2016-12-23 05:46 | RADRPT ---
EXAM DATE/TIME: 12/23/2016 03:50 [facility] COMPARISON: CHEST SINGLE AP, December 21, 2016, 4:08. INDICATIONS : Shortness of breath, possible edema. MEDICAL HISTORY : Cardiovascular disease. Chronic obstructive pulmonary disease. Gastroesophageal reflux disease. H ypertension Lung Ca SURGICAL HISTORY : None. ENCOUNTER: Subsequent ACUITY: 4 - 6 days PAIN SCORE: Non-responsive. LOCATION: Bilateral chest FINDINGS: A single AP semierect view of the chest was obtained and again demonstrates the endotracheal tube in place with the tip approximately 3 cm above the alber. The hilar regions remain retracted cephalad a nd there is dense right apical pleural-parenchymal change most consistent with scarring. A nasogastri c tube is again seen coursing through the esophagus and stomach. The heart size remains at the upper limits of normal. There is patchy opacity in the left lung without significant change. This remains g reatest in the lung base. The right-sided central venous line remains in place. CONCLUSION: 1. Stable appearance with no acute pneumonia. 2. Dense right apical pleural-parenchymal change and volume loss most consistent with scarring. Leighton Vasquez MD on December 23, 2016 at 5:43 Board Certified Radiologist. This report was verified electronically.
[2016-12-23] MEDS: SODIUM CHLOR 0.9% 1000 ML INJ 1,000 ML IV SCH ×2 (06:25→19:05)
[2016-12-23] MEDS: VANCOMYCIN INJ 1,500 MG in SODIUM CHLORID 0.9% 500 ML INJ 500 ML IV SCH (06:25)
[2016-12-23] MEDS: CHLORHEXIDINE GLUCONATE 0.12% 15 ML CUP OROPHARYNG SCH ×2 (08:00→20:00)
[2016-12-23] MEDS: INSULIN ASPART SUPPLEMENTAL SCALE SQ SCH ×4 (08:00→19:34)
[2016-12-23] MEDS: SODIUM CHLORIDE 0.9% FLUSH 10 ML FLUSH IV FLUSH SCH ×2 (09:00→21:46)
[2016-12-23] MEDS: LEVOFLOXACIN 750 MG PREMIX INJ 150 ML IV SCH (09:20)
[2016-12-23] MEDS: PANTOPRAZOLE SODIUM 40 MG VIAL IV PUSH SCH ×2 (09:21→21:49)
[2016-12-23] MEDS: LACTOBACILLUS ACIDOPHILUS TAB PO SCH ×3 (09:21→18:00)
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
[2016-12-23] MEDS ORDERED: POTASSIUM CHLOR 20 MEQ PREMIX 100 ML IV PRN ×2 (10:00)
[2016-12-23] MEDS ORDERED: MAGNESIUM SULFATE INJ 4 GM in SODIUM CHLORIDE 0.9% INJ 92 ML IV PRN (10:00)
[2016-12-23] MEDS ORDERED: MAGNESIUM OXIDE 400 MG TAB PO PRN (10:00)
[2016-12-23] MEDS ORDERED: POTASSIUM CHLOR 40 MEQ PREMIX 100 ML IV PRN ×2 (10:00)
[2016-12-23] MEDS ORDERED: SODIUM PHOSPHATE INJ 30 MMOL in SODIUM CHLOR 0.9% 250 ML INJ 240 ML IV PRN (10:00)
[2016-12-23] MEDS ORDERED: MAGNESIUM SULFATE INJ 2 GM in SODIUM CHLORIDE 0.9% INJ 96 ML IV PRN (10:00)
[2016-12-23] MEDS ORDERED: POTASSIUM PHOSPHATE INJ 30 MMOL in SODIUM CHLOR 0.9% 250 ML INJ 250 ML IV PRN (10:00)
[2016-12-23] MEDS ORDERED: POTASSIUM PHOSPHATE MONOBASIC 500 MG TAB PO/TUBE PRN (10:00)
[2016-12-23] MEDS: MICAFUNGIN INJ 100 MG in SODIUM CHLORIDE 0.9% INJ 100 ML IV SCH (16:53)
[2016-12-23] MEDS: VANCOMYCIN 1,000 MG/NS 250 ML IV SCH ×2 (18:00)
[2016-12-23] MEDS: BUDESONIDE-FORMOTEROL 80/4.5 MCG INHALER INH SCH (21:00)
[2016-12-24] VITALS (27 sets, daily range): BP systolic 80–132; BP diastolic 47–79; PULSE 90–126; RESP 0–19; TEMP 98.4–100.1; O2SAT 97–100
[2016-12-24] MEDS: CHLORHEXIDINE GLUCONATE 2 % 1 PACK (2 CLOTHS)(taper/protocol) TOPICAL SCH (04:00)
[2016-12-24 05:46] LABS: HEMATOCRIT 23.3 % (39.0-51.0); MEAN CELL VOLUME 89.9 FL (80.0-100.0); MEAN CORPUSCULAR HEMOGLOBIN 29.5 PG (27.0-34.0); MEAN CORPUSCULAR HGB CONC 32.8 % (32.0-36.0); PLATELET COUNT 46 TH/MM3 (150-450); RED CELL DISTRIBUTION WIDTH 29.6 % (11.6-17.2); WHITE BLOOD COUNT 7.9 TH/MM3 (4.0-11.0)
[2016-12-24] MEDS: INSULIN ASPART SUPPLEMENTAL SCALE SQ SCH ×5 (06:00→23:34)
[2016-12-24] MEDS: SODIUM CHLOR 0.9% 1000 ML INJ 1,000 ML IV SCH ×2 (06:19→18:40)
[2016-12-24] MEDS: VANCOMYCIN 1,000 MG/NS 250 ML IV SCH ×4 (06:19→18:38)
[2016-12-24 06:29] LABS: BICARBONATE 30.7 MEQ/L (21.0-32.0); MAGNESIUM 1.8 MG/DL (1.5-2.5); POTASSIUM 4.4 MEQ/L (3.5-5.1)
[2016-12-24 07:11] LABS: HEMO FLAGS AUTO DIFF
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
[2016-12-24 08:33] LABS: BANDS 16 % (0-6); BASOPHILS 1 % (0-2); NEUTROPHIL # MANUAL DIFF 5.8 TH/MM3 (1.8-7.7); PLATELET ESTIMATE SMEAR LOW (NORMAL); PLATELET MORPHOLOGY ENLARGED (NORMAL); POLYS (SEG NEUTROPHILS) 58 % (16-70); WBC DIFF SAMPLE 100
[2016-12-24 08:34] LABS: OVALOCYTES 1+ (NORMAL)
[2016-12-24 08:35] LABS: ACANTHOCYTES OCC (NORMAL); SCAN/DIFF FINAL DIFF MANUAL; TOXIC GRANULATION 1+ (NORMAL)
[2016-12-24] MEDS: BUDESONIDE-FORMOTEROL 80/4.5 MCG INHALER INH SCH ×2 (09:00→20:32)
[2016-12-24] MEDS: SODIUM CHLORIDE 0.9% FLUSH 10 ML FLUSH IV FLUSH SCH ×2 (09:18→20:32)
[2016-12-24] MEDS: LEVOFLOXACIN 750 MG PREMIX INJ 150 ML IV SCH (09:18)
[2016-12-24] MEDS: PANTOPRAZOLE SODIUM 40 MG VIAL IV PUSH SCH ×2 (09:18→20:33)
[2016-12-24] MEDS: LACTOBACILLUS ACIDOPHILUS TAB PO SCH ×3 (09:18→17:00)
[2016-12-24] MEDS: CHLORHEXIDINE GLUCONATE 0.12% 15 ML CUP OROPHARYNG SCH ×2 (09:18→20:00)
[2016-12-24] MEDS: POTASSIUM PHOSPHATE MONOBASIC 500 MG TAB PO PRN ×2 (09:19→16:05)
[2016-12-24] MEDS: AZTREONAM INJ 1,000 MG in SODIUM CHLORIDE 0.9% INJ 100 ML IV SCH ×2 (10:50→17:00)
[2016-12-24 10:53] LABS: INTERNATIONAL NORMALIZED RATIO 1.2 RATIO; PROTHROMBIN TIME - PATIENT 13.1 SEC (9.8-11.6)
[2016-12-24] MEDS: fentaNYL DRIP 250 ML IV PRN (12:33)
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
[2016-12-24] MEDS: RESP: ALBUTEROL 2.5 MG/IPRATROPIUM 0.5 MG NEB (PRN) NEB (16:38)
[2016-12-24] MEDS: SENNOSIDES SYRUP 8.8 MG/5 ML CUP PO SCH (17:00)
[2016-12-24] MEDS: RESP: ALBUTEROL 2.5 MG/IPRATROPIUM 0.5 MG NEB (SCH) NEB ×2 (19:39→23:41)
--- NOTE | 2016-12-24 19:57 | PD.ONC.PN ---
Subjective Subjective Remarks remains intubated f/u for thrombocytopenia/anemia/hx of lung cancer remains on pressors Objective Data Date Time Temp Pulse Resp B/P (MAP) Pulse Ox O2 Delivery O2 Flow Rate FiO2 12/24/16 18:00 104 12/24/16 16:00 117 12/24/16 16:00 40 12/24/16 16:00 98.4 117 8 90/66 (74) 99 106/56 (73) 12/24/16 15:30 99 35 12/24/16 15:00 119 11 91/67 (75) 99 107/58 (74) 12/24/16 14:00 120 6 90/65 (73) 99 101/53 (69) 12/24/16 14:00 120 12/24/16 13:35 97 35 12/24/16 13:00 126 7 97/69 (78) 97 111/59 (76) 12/24/16 12:30 40 12/24/16 12:00 98.7 126 0 109/79 (89) 100 132/66 (88) 12/24/16 12:00 40 12/24/16 12:00 126 12/24/16 11:53 100 35 12/24/16 11:00 121 12 98/68 (78) 100 121/59 (79) 12/24/16 10:00 124 14 96/66 (76) 99 123/59 (80) 12/24/16 10:00 124 12/24/16 09:19 118 129/58 12/24/16 09:10 40 12/24/16 09:06 35 12/24/16 09:00 109 19 98/65 (76) 100 122/58 (79) 12/24/16 08:16 100 35 12/24/16 08:00 40 12/24/16 08:00 90 12/24/16 08:00 99.0 90 16 84/52 (63) 100 98/49 (65) 12/24/16 07:00 102 16 90/60 (70) 100 111/54 (73) 12/24/16 06:00 102 16 81/54 (63) 100 99/47 (64) 12/24/16 06:00 102 12/24/16 04:45 100 40 12/24/16 04:00 110 12/24/16 04:00 40 12/24/16 04:00 100.1 110 13 91/67 (75) 99 114/60 (78) 12/24/16 02:00 103 16 80/53 (62) 99 95/53 (67) 12/24/16 02:00 103 12/24/16 01:13 99 40 12/24/16 00:00 110 12/24/16 00:00 100.0 110 2 89/64 (72) 100 101/59 (73) 12/24/16 00:00 40 12/23/16 22:00 124 12/23/16 22:00 124 16 100/71 (81) 99 109/61 (77) 12/23/16 21:27 99 40 12/23/16 20:00 132 12/23/16 20:00 40 12/23/16 20:00 100.0 132 16 113/80 (91) 99 130/73 (92) 12/24/16 12/24/16 12/24/16 07:00 15:00 23:00 Intake Total 1098 ml 551 ml 2757 ml Output Total 425 ml 425 ml Balance 673 ml 551 ml 2332 ml Result Diagram: 12/24/16 0445 12/24/16 0445 Laboratory Results Laboratory Tests Test 12/24/16 04:45 12/24/16 10:00 White Blood Count 7.9 TH/MM3 Red Blood Count 2.60 MIL/MM3 Hemoglobin 7.7 GM/DL Hematocrit 23.3 % Mean Corpuscular Volume 89.9 FL Mean Corpuscular Hemoglobin 29.5 PG Mean Corpuscular Hemoglobin Concent 32.8 % Red Cell Distribution Width 29.6 % Platelet Count 46 TH/MM3 Mean Platelet Volume 8.9 FL CBC Comment AUTO DIFF Differential Total Cells Counted 100 Neutrophils % (Manual) 58 % Band Neutrophils % 16 % Lymphocytes % 20 % Monocytes % 5 % Basophils % 1 % Neutrophils # (Manual) 5.8 TH/MM3 Differential Comment FINAL DIFF MANUAL Atypical Lymphocytes % Toxic Granulation 1+ Platelet Estimate LOW Platelet Morphology Comment ENLARGED Ovalocytes 1+ Acanthocytes OCC Blood Urea Nitrogen 7 MG/DL Creatinine 0.39 MG/DL Random Glucose 102 MG/DL Calcium Level 7.8 MG/DL Phosphorus Level 1.7 MG/DL Magnesium Level 1.8 MG/DL Sodium Level 138 MEQ/L Potassium Level 4.4 MEQ/L Chloride Level 101 MEQ/L Carbon Dioxide Level 30.7 MEQ/L Anion Gap 6 MEQ/L Estimat Glomerular Filtration Rate 226 ML/MIN Prothrombin Time 13.1 SEC Prothromb Time International Ratio 1.2 RATIO Fibrinogen 497 mg/dL Culture Results Microbiology Date/Time Source Procedure Growth Status 12/22/16 19:53 Blood Peripheral Aerobic Blood Culture - Preliminary NO GROWTH IN 2 DAYS Resulted 12/22/16 19:53 Blood Peripheral Anaerobic Blood Culture - Preliminary NO GROWTH IN 2 DAYS Resulted 12/22/16 19:48 Blood Peripheral Aerobic Blood Culture - Preliminary NO GROWTH IN 2 DAYS Resulted 12/22/16 19:48 Blood Peripheral Anaerobic Blood Culture - Preliminary NO GROWTH IN 2 DAYS Resulted 12/22/16 19:50 Sputum Endotracheal Gram Stain - Final Resulted 12/22/16 19:50 Sputum Culture - Preliminary Staphylococcus Aureus Resulted 12/22/16 19:50 Urine Catheterized Urine Urine Culture - Final NO GROWTH IN 48 HOURS. Complete Administered Medications Medications (Trade) Dose Ordered Sig/Ela Route PRN Reason Start Time Stop Time Status Last Admin Dose Admin Sodium Chloride (NS Flush) 2 ml UNSCH PRN IV FLUSH FLUSH AFTER USING IV ACCESS 12/17/16 19:00 12/21/16 08:41 Sodium Chloride (NS Flush) 2 ml BID IV FLUSH 12/17/16 21:00 12/24/16 09:18 Lactobacillus Acidophilus (Lactinex) 1 tab TID PO 12/18/16 09:00 12/24/16 17:00 Albuterol/ Ipratropium (Duoneb Neb) 1 ampule Q2HR NEB PRN NEB wheezing 12/17/16 22:15 12/24/16 16:38 Acetaminophen/ Hydrocodone Bitart (Gallant 10-325 Mg) 1 tab Q4H PRN PO PAIN 12/18/16 00:00 12/19/16 05:14 Levofloxacin/ Dextrose 150 ml @ 100 mls/hr Q24H IV 12/18/16 09:00 12/24/16 09:18 Furosemide (Lasix Inj) 20 mg BID@,18 IV PUSH 12/18/16 09:00 Future Hold 12/18/16 18:26 Budesonide/ Formoterol Fumarate (Symbicort 80-4.5 Mcg Inh) 2 puff Q12HR INH 12/18/16 21:00 12/18/16 20:25 Norepinephrine Bitartrate 250 ml @ 7.5 mls/hr TITRATE PRN IV Blood pressure management 12/19/16 08:15 12/23/16 17:26 Pantoprazole Sodium (Protonix Inj) 40 mg Q12HR IV PUSH 12/19/16 09:30 12/24/16 09:18 Chlorhexidine Gluconate (Peridex 0.12% Liq) 15 ml BID@08,20 OROPHARYNG 12/19/16 20:00 12/24/16 09:18 Miscellaneous Information Patient in critical care unit? Ass... [id number] .[id number] 12/19/16 20:30 12/19/16 20:30 Fentanyl Citrate 250 ml @ 5 mls/hr TITRATE PRN IV SEDATION 12/22/16 18:30 12/24/16 12:33 Sodium Chloride 1,000 ml @ 84 mls/hr [id number] IV 12/22/16 19:15 12/24/16 18:40 Vancomycin HCl 1000 mg/Sodium Chloride 250 ml @ 250 mls/hr Q12H IV 12/23/16 18:00 12/24/16 18:38 Potassium Phosphate (K-Phos) 2,000 mg Q4H PRN PO For Phosphorus < 2.5 mg/dL 12/23/16 10:00 12/24/16 16:05 Insulin Aspart (NovoLOG SUPPLEMENTAL SCALE) 1 Q6H SQ 12/23/16 12:00 12/24/16 18:37 Aztreonam 1000 mg/ Sodium Chloride 100 ml @ 200 mls/hr Q8H IV 12/24/16 10:00 12/24/16 17:00 Sennosides (Senna Liq) 8.8 mg DAILY PO 12/24/16 17:00 12/24/16 17:00 Albuterol/ Ipratropium (Duoneb Neb) 1 ampule Q4HR NEB NEB 12/24/16 20:00 12/24/16 19:39 Objective Remarks GENERAL: acutely ill SKIN: Warm and dry. LYMPHATIC: No adenopathy. CARDIOVASCULAR: Regular rate and rhythm without murmurs. RESPIRATORY: Breath sounds equal bilaterally. No accessory muscle use. GASTROINTESTINAL: Abdomen soft, non-tender, nondistended. EXTREMITIES: No cyanosis, or edema. Assessment/Plan Problem List: (1) Pericardial effusion ICD Codes: I31.3 - Pericardial effusion (noninflammatory) (2) Acute hypoxemic respiratory failure ICD Codes: J96.01 - Acute respiratory failure with hypoxia (3) Thrombocytopenia ICD Codes: D69.6 - Thrombocytopenia, unspecified (4) Anemia of chronic disease ICD Codes: D63.8 - Anemia of chronic disease Status: Chronic Assessment 1. Anemia 2. Thrombocytopenia 2/2 dic/consumption 3. Hx of Lung cancer 4. Pericaridal effusion/Tamponade 5. Hypotension 6. Acute respiratory failure Plan - Will transfuse one unit of pRBC since hypotensive and acutely ill - HIT panel weekly positive--check DALE - Check DIC panel in am - daily coags - check LFTs and T.bili in am d/w rn o/n events reviewed River Santana MD Dec 24, 2016 19:57
[2016-12-24] MEDS: DOCUSATE SODIUM 100 MG/10 ML UDC PO SCH (20:33)
[2016-12-25] VITALS (24 sets, daily range): BP systolic 92–161; BP diastolic 49–92; PULSE 104–141; RESP 11–24; TEMP 98.1–99.4; O2SAT 97–100
[2016-12-25] MEDS: AZTREONAM INJ 1,000 MG in SODIUM CHLORIDE 0.9% INJ 100 ML IV SCH ×3 (01:11→17:11)
[2016-12-25] MEDS: RESP: ALBUTEROL 2.5 MG/IPRATROPIUM 0.5 MG NEB (SCH) NEB ×5 (03:56→20:00)
[2016-12-25] MEDS: SODIUM CHLOR 0.9% 1000 ML INJ 1,000 ML IV SCH (05:08)
[2016-12-25] MEDS: INSULIN ASPART SUPPLEMENTAL SCALE SQ SCH ×4 (05:09→23:29)
[2016-12-25] MEDS ORDERED: PHARMACY ORDERED LAB ONE (05:45)
[2016-12-25 05:49] LABS: HEMATOCRIT 26.2 % (39.0-51.0); MEAN CELL VOLUME 90.8 FL (80.0-100.0); MEAN CORPUSCULAR HEMOGLOBIN 30.4 PG (27.0-34.0); MEAN CORPUSCULAR HGB CONC 33.5 % (32.0-36.0); RED BLOOD COUNT 2.88 MIL/MM3 (4.50-5.90); RED CELL DISTRIBUTION WIDTH 26.5 % (11.6-17.2); WHITE BLOOD COUNT 7.1 TH/MM3 (4.0-11.0)
[2016-12-25 05:53] LABS: HEMO FLAGS AUTO DIFF
[2016-12-25 06:01] LABS: BICARBONATE 31.4 MEQ/L (21.0-32.0); POTASSIUM 4.4 MEQ/L (3.5-5.1)
[2016-12-25 06:04] LABS: INDIRECT BILIRUBIN 0.2 MG/DL (0.0-0.8); PROTHROMBIN TIME - PATIENT 12.7 SEC (9.8-11.6); TOTAL BILIRUBIN ADULT 0.4 MG/DL (0.2-1.0)
[2016-12-25] MEDS: VANCOMYCIN 1,000 MG/NS 250 ML IV SCH ×4 (06:12→17:59)
[2016-12-25 08:18] LABS: PLATELET COUNT 58 TH/MM3 (150-450)
[2016-12-25] MEDS: BUDESONIDE-FORMOTEROL 80/4.5 MCG INHALER INH SCH ×2 (09:00→20:17)
[2016-12-25 09:06] LABS: BANDS 8 % (0-6); BASOPHILS 1 % (0-2); EOSINOPHILS 1 % (0-4); MYELOCYTES 3 % (0-0); NEUTROPHIL # MANUAL DIFF 5.3 TH/MM3 (1.8-7.7); POLYS (SEG NEUTROPHILS) 63 % (16-70); WBC DIFF SAMPLE 100
[2016-12-25 09:07] LABS: PLATELET ESTIMATE SMEAR LOW (NORMAL); PLATELET MORPHOLOGY ENLARGED (NORMAL); SCAN/DIFF FINAL DIFF MANUAL
[2016-12-25] MEDS: CHLORHEXIDINE GLUCONATE 0.12% 15 ML CUP OROPHARYNG SCH ×2 (09:25→20:00)
[2016-12-25] MEDS: LEVOFLOXACIN 750 MG PREMIX INJ 150 ML IV SCH (09:25)
[2016-12-25] MEDS: SENNOSIDES SYRUP 8.8 MG/5 ML CUP PO SCH (09:26)
[2016-12-25] MEDS: SODIUM CHLORIDE 0.9% FLUSH 10 ML FLUSH IV FLUSH SCH ×2 (09:26→20:18)
[2016-12-25] MEDS: SODIUM CHLORIDE 0.9% FLUSH 10 ML FLUSH IV FLUSH PRN (09:26)
[2016-12-25] MEDS: LACTOBACILLUS ACIDOPHILUS TAB PO SCH ×3 (09:26→17:11)
[2016-12-25] MEDS: DOCUSATE SODIUM 100 MG/10 ML UDC PO SCH ×2 (09:26→20:18)
[2016-12-25] MEDS: PANTOPRAZOLE SODIUM 40 MG VIAL IV PUSH SCH ×2 (09:26→20:18)
[2016-12-25] MEDS: fentaNYL DRIP 250 ML IV PRN (09:36)
[2016-12-25] MEDS ORDERED: BUMETANIDE INJ 1 MG/4 ML VIAL IV PUSH ONE (09:45)
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
--- NOTE | 2016-12-25 11:24 | RADRPT ---
EXAM DATE/TIME: 12/25/2016 09:53 [facility] COMPARISON: CHEST SINGLE AP, December 19, 2016, 10:35. CHEST SINGLE AP, December 23, 2016, 3:50. INDICATIONS : Respiratory distress. MEDICAL HISTORY : Carcinoma, lung. Gastroesophageal reflux disease. Hypertension. Cardiovascular disease. Chronic o bstructive pulmonary disease. SURGICAL HISTORY : None. ENCOUNTER: Subsequent ACUITY: 1 week PAIN SCORE: Non-responsive. LOCATION: Bilateral chest FINDINGS: A single portable frontal view the chest shows no interval change. A dense consolidation is again see n involving the right lung apex with associated volume loss. Chronic interstitial changes are seen th roughout both aerated portions of lung. No acute infiltrate or effusion. Heart is normal in size. The catheter overlies the right chest. Tip of the endotracheal tube is 4 cm cephalad to the alber. Naso gastric tube courses off the inferior margin of the film. CONCLUSION: 1. Stable exam with chronic changes as detailed above. No acute infiltrate. Jose Antonio Snow Jr., MD on December 25, 2016 at 11:20 Board Certified Radiologist. This report was verified electronically.
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
[2016-12-25] MEDS: POTASSIUM PHOSPHATE MONOBASIC 500 MG TAB PO PRN (12:32)
--- NOTE | 2016-12-25 12:52 | PD.ONC.PN ---
Subjective Subjective Remarks Afebrile overnight. Intubated, sedated patient. Objective Data Date Time Temp Pulse Resp B/P (MAP) Pulse Ox O2 Delivery O2 Flow Rate FiO2 12/25/16 12:00 35 12/25/16 12:00 129 12/25/16 10:45 97 35 12/25/16 10:00 131 12/25/16 09:00 128 13 97 115/63 (80) 12/25/16 08:15 35 12/25/16 08:04 99 35 12/25/16 08:00 98.1 141 22 130/92 (105) 100 161/83 (109) 12/25/16 08:00 141 12/25/16 07:40 35 12/25/16 07:40 100 35 12/25/16 07:37 35 12/25/16 07:30 35 12/25/16 07:00 125 22 100 145/73 (97) 12/25/16 06:00 105 12/25/16 04:12 99 35 12/25/16 04:00 40 12/25/16 04:00 98.3 104 17 104/53 (70) 99 99/49 (66) 12/25/16 04:00 104 12/25/16 02:00 105 12/25/16 00:00 114 12/25/16 00:00 40 12/25/16 00:00 98.6 114 13 97/66 (76) 100 123/56 (78) 12/24/16 23:41 100 35 12/24/16 23:15 98.8 116 17 124/60 98 12/24/16 22:57 98.8 116 17 115/52 99 12/24/16 22:00 117 12/24/16 20:00 117 12/24/16 20:00 99.3 117 19 93/66 (75) 99 117/57 (77) 12/24/16 20:00 40 12/24/16 19:38 99 35 12/24/16 18:00 104 12/24/16 16:00 117 12/24/16 16:00 40 12/24/16 16:00 98.4 117 8 90/66 (74) 99 106/56 (73) 12/24/16 15:30 99 35 12/24/16 15:00 119 11 91/67 (75) 99 107/58 (74) 12/24/16 14:00 120 6 90/65 (73) 99 101/53 (69) 12/24/16 14:00 120 12/24/16 13:35 97 35 12/24/16 13:00 126 7 97/69 (78) 97 111/59 (76) 12/25/16 12/25/16 12/25/16 07:00 15:00 23:00 Intake Total 2565 ml 1212 ml Output Total 450 ml Balance 2115 ml 1212 ml Result Diagram: 12/25/16 0500 12/25/16 0500 Laboratory Results Laboratory Tests Test 12/25/16 05:00 White Blood Count 7.1 TH/MM3 Red Blood Count 2.88 MIL/MM3 Hemoglobin 8.8 GM/DL Hematocrit 26.2 % Mean Corpuscular Volume 90.8 FL Mean Corpuscular Hemoglobin 30.4 PG Mean Corpuscular Hemoglobin Concent 33.5 % Red Cell Distribution Width 26.5 % Platelet Count 58 TH/MM3 Mean Platelet Volume 8.8 FL CBC Comment AUTO DIFF Differential Total Cells Counted 100 Neutrophils % (Manual) 63 % Band Neutrophils % 8 % Lymphocytes % 16 % Monocytes % 8 % Eosinophils % 1 % Basophils % 1 % Neutrophils # (Manual) 5.3 TH/MM3 Myelocytes 3 % Differential Comment FINAL DIFF MANUAL Platelet Estimate LOW Platelet Morphology Comment ENLARGED Basophilic Stippling FAINT Prothrombin Time 12.7 SEC Prothromb Time International Ratio 1.0 RATIO Fibrinogen 452 mg/dL D-Dimer Quantitative (PE/DVT) 2.20 MG/L FEU Blood Urea Nitrogen 8 MG/DL Creatinine 0.47 MG/DL Random Glucose 146 MG/DL Total Protein 4.8 GM/DL Albumin 1.6 GM/DL Calcium Level 7.5 MG/DL Phosphorus Level 2.4 MG/DL Alkaline Phosphatase 138 U/L Aspartate Amino Transf (AST/SGOT) 36 U/L Alanine Aminotransferase (ALT/SGPT) 59 U/L Total Bilirubin 0.4 MG/DL Direct Bilirubin 0.2 MG/DL Sodium Level 140 MEQ/L Potassium Level 4.4 MEQ/L Chloride Level 105 MEQ/L Carbon Dioxide Level 31.4 MEQ/L Anion Gap 4 MEQ/L Estimat Glomerular Filtration Rate 182 ML/MIN Indirect Bilirubin 0.2 MG/DL Vancomycin Level Trough 18.7 MCG/ML Culture Results Microbiology Date/Time Source Procedure Growth Status 12/22/16 19:53 Blood Peripheral Aerobic Blood Culture - Preliminary NO GROWTH IN 3 DAYS Resulted 12/22/16 19:53 Blood Peripheral Anaerobic Blood Culture - Preliminary NO GROWTH IN 3 DAYS Resulted 12/22/16 19:48 Blood Peripheral Aerobic Blood Culture - Preliminary NO GROWTH IN 3 DAYS Resulted 12/22/16 19:48 Blood Peripheral Anaerobic Blood Culture - Preliminary NO GROWTH IN 3 DAYS Resulted 12/22/16 19:50 Sputum Endotracheal Gram Stain - Final Complete 12/22/16 19:50 Sputum Culture - Final Staphylococcus Aureus Complete 12/22/16 19:50 Urine Catheterized Urine Urine Culture - Final NO GROWTH IN 48 HOURS. Complete Imaging Studies Last 24 hours Impressions Chest X-Ray 12/25/16 0000 Signed Impressions: Service Date/Time: Sunday, December 25, 2016 09:53 - CONCLUSION: 1. Stable exam with chronic changes as detailed above. No acute infiltrate. Jose Antonio Snow Jr., MD Administered Medications Medications (Trade) Dose Ordered Sig/Ela Route PRN Reason Start Time Stop Time Status Last Admin Dose Admin Sodium Chloride (NS Flush) 2 ml UNSCH PRN IV FLUSH FLUSH AFTER USING IV ACCESS 12/17/16 19:00 12/25/16 09:26 Sodium Chloride (NS Flush) 2 ml BID IV FLUSH 12/17/16 21:00 12/25/16 09:26 Lactobacillus Acidophilus (Lactinex) 1 tab TID PO 12/18/16 09:00 12/25/16 12:32 Albuterol/ Ipratropium (Duoneb Neb) 1 ampule Q2HR NEB PRN NEB wheezing 12/17/16 22:15 12/24/16 16:38 Acetaminophen/ Hydrocodone Bitart ([place] 10-325 Mg) 1 tab Q4H PRN PO PAIN 12/18/16 00:00 12/19/16 05:14 Levofloxacin/ Dextrose 150 ml @ 100 mls/hr Q24H IV 12/18/16 09:00 12/25/16 09:25 Furosemide (Lasix Inj) 20 mg BID@,18 IV PUSH 12/18/16 09:00 Future Hold 12/18/16 18:26 Budesonide/ Formoterol Fumarate (Symbicort 80-4.5 Mcg Inh) 2 puff Q12HR INH 12/18/16 21:00 12/18/16 20:25 Norepinephrine Bitartrate 250 ml @ 7.5 mls/hr TITRATE PRN IV Blood pressure management 12/19/16 08:15 12/23/16 17:26 Pantoprazole Sodium (Protonix Inj) 40 mg Q12HR IV PUSH 12/19/16 09:30 12/25/16 09:26 Chlorhexidine Gluconate (Peridex 0.12% Liq) 15 ml BID@08,20 OROPHARYNG 12/19/16 20:00 12/25/16 09:25 Miscellaneous Information Patient in critical care unit? Ass... [id number] .XX 12/19/16 20:30 12/19/16 20:30 Fentanyl Citrate 250 ml @ 5 mls/hr TITRATE PRN IV SEDATION 12/22/16 18:30 12/25/16 09:36 Vancomycin HCl 1000 mg/Sodium Chloride 250 ml @ 250 mls/hr Q12H IV 12/23/16 18:00 12/25/16 06:12 Potassium Phosphate (K-Phos) 2,000 mg Q4H PRN PO For Phosphorus < 2.5 mg/dL 12/23/16 10:00 12/25/16 12:32 Insulin Aspart (NovoLOG SUPPLEMENTAL SCALE) 1 Q6H SQ 12/23/16 12:00 12/25/16 12:39 Aztreonam 1000 mg/ Sodium Chloride 100 ml @ 200 mls/hr Q8H IV 12/24/16 10:00 12/25/16 10:15 Docusate Sodium (Colace Liq) 100 mg Q12HR PO 12/24/16 21:00 12/25/16 09:26 Sennosides (Senna Liq) 8.8 mg DAILY PO 12/24/16 17:00 12/25/16 09:26 Albuterol/ Ipratropium (Duoneb Neb) 1 ampule Q4HR NEB NEB 12/24/16 20:00 12/25/16 07:36 Objective Remarks GENERAL: Intubated, sedated male supine in bed. SKIN: Warm and dry. HEAD: Normocephalic. EYES: No injection or drainage. NECK: Supple, trachea midline. CARDIOVASCULAR: +S1/S2 RESPIRATORY: anterior west with coarse scattered rhonchi. on mechanical ventilation. GASTROINTESTINAL: Abdomen nondistended. EXTREMITIES: No cyanosis. severe weeping edema, bilateral upper extremities. NEUROLOGICAL: intubated, sedated Assessment/Plan Problem List: (1) Thrombocytopenia ICD Codes: D69.6 - Thrombocytopenia, unspecified Plan: HIT panel weekly positive--await DALE --coags mildly prolonged. fibrinogen>400 --T.bili WNL, LFT's WNL (2) Pericardial effusion ICD Codes: I31.3 - Pericardial effusion (noninflammatory) Plan: --refusing surgical intervention --does have a large pericardial effusion which may need to be drained. ++chronic right upper lobe consolidated area which appears to be more reactive in nature than malignancy. --may be chronic radiation changes combined with severe emphysema. (3) Anemia of chronic disease ICD Codes: D63.8 - Anemia of chronic disease Status: Chronic Plan: --monitor and transfuse as needed (4) Non-small cell lung cancer Status: Chronic Plan: --history of stage III lung cancer. --treated with combined chemoradiation in 2011. --was definitive treatment with a curative intent. --had complete response after his treatment and he has been under close observation. (5) Acute hypoxemic respiratory failure ICD Codes: J96.01 - Acute respiratory failure with hypoxia Assessment 61y/o male w/ h/o lung cancer, admitted with acute dyspnea and CHF. history of tobacco abuse and COPD/severe emphysema. h/o Hypertension. CHF. Attending Statement The exam, history, and the medical decision-making described in the above note were completed with the assistance of the mid-level provider. I reviewed and agree with the findings presented. I attest that I had a [id number] encounter with the patient on the same day, and personally performed and documented my assessment and findings in the medical record. Brittani Bains Dec 25, 2016 12:52 River Santana MD Dec 26, 2016 00:04
[2016-12-25 17:21] LABS: APTT (PATIENT) 31.7 SEC (24.3-30.1)
[2016-12-26] VITALS (24 sets, daily range): BP systolic 91–115; BP diastolic 53–76; PULSE 104–128; RESP 6–27; TEMP 97.9–99.4; O2SAT 96–100
[2016-12-26] MEDS: AZTREONAM INJ 1,000 MG in SODIUM CHLORIDE 0.9% INJ 100 ML IV SCH ×3 (01:05→17:26)
[2016-12-26] MEDS: INSULIN ASPART SUPPLEMENTAL SCALE SQ SCH ×4 (04:00→18:00)
[2016-12-26] MEDS: RESP: ALBUTEROL 2.5 MG/IPRATROPIUM 0.5 MG NEB (SCH) NEB ×6 (04:00→20:34)
[2016-12-26 04:43] LABS: HEMATOCRIT 26.1 % (39.0-51.0); MEAN CELL VOLUME 89.7 FL (80.0-100.0); MEAN CORPUSCULAR HEMOGLOBIN 30.8 PG (27.0-34.0); MEAN CORPUSCULAR HGB CONC 34.4 % (32.0-36.0); PLATELET COUNT 78 TH/MM3 (150-450); RED BLOOD COUNT 2.91 MIL/MM3 (4.50-5.90); RED CELL DISTRIBUTION WIDTH 27.6 % (11.6-17.2); WHITE BLOOD COUNT 8.9 TH/MM3 (4.0-11.0)
[2016-12-26 04:57] LABS: HEMO FLAGS AUTO DIFF
[2016-12-26 05:09] LABS: BICARBONATE 34.3 MEQ/L (21.0-32.0); POTASSIUM 4.1 MEQ/L (3.5-5.1)
[2016-12-26] MEDS: VANCOMYCIN 1,000 MG/NS 250 ML IV SCH ×4 (05:46→18:15)
[2016-12-26] MEDS: LEVOFLOXACIN 750 MG PREMIX INJ 150 ML IV SCH (07:44)
[2016-12-26] MEDS: PANTOPRAZOLE SODIUM 40 MG VIAL IV PUSH SCH ×2 (07:44→20:56)
[2016-12-26] MEDS: SODIUM CHLORIDE 0.9% FLUSH 10 ML FLUSH IV FLUSH PRN (07:44)
[2016-12-26] MEDS: SODIUM CHLORIDE 0.9% FLUSH 10 ML FLUSH IV FLUSH SCH ×2 (07:44→20:56)
[2016-12-26 07:45] LABS: BANDS 6 % (0-6); EOSINOPHILS 4 % (0-4); MYELOCYTES 1 % (0-0); NEUTROPHIL # MANUAL DIFF 7.4 TH/MM3 (1.8-7.7); POLYS (SEG NEUTROPHILS) 76 % (16-70); WBC DIFF SAMPLE 100
[2016-12-26] MEDS: SENNOSIDES SYRUP 8.8 MG/5 ML CUP PO SCH (07:45)
[2016-12-26] MEDS: DOCUSATE SODIUM 100 MG/10 ML UDC PO SCH ×2 (07:45→20:56)
[2016-12-26] MEDS: LACTOBACILLUS ACIDOPHILUS TAB PO SCH ×3 (07:45→18:15)
[2016-12-26 07:46] LABS: ACANTHOCYTES OCC (NORMAL); PLATELET ESTIMATE SMEAR LOW (NORMAL); PLATELET MORPHOLOGY ENLARGED (NORMAL)
[2016-12-26 07:47] LABS: SCAN/DIFF FINAL DIFF MANUAL
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
[2016-12-26] MEDS ORDERED: BUMETANIDE INJ 1 MG/4 ML VIAL IV PUSH ONE (08:30)
[2016-12-26] MEDS: METOPROLOL TARTRATE 25 MG TAB PO SCH ×2 (09:00→20:58)
[2016-12-26] MEDS: BUDESONIDE-FORMOTEROL 80/4.5 MCG INHALER INH SCH ×2 (09:00→20:56)
[2016-12-26] MEDS: LACTULOSE SYRUP 20 GM/30 ML CUP PO SCH ×2 (09:32→20:56)
[2016-12-26] MEDS: CHLORHEXIDINE GLUCONATE 0.12% 15 ML CUP OROPHARYNG SCH ×2 (09:32→20:00)
[2016-12-26] MEDS: fentaNYL DRIP 250 ML IV PRN (09:33)
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
[2016-12-26] MEDS: DEXMEDETOMIDINE INJ 200 MCG in SODIUM CHLORIDE 0.9% INJ 50 ML IV PRN (14:47)
--- NOTE | 2016-12-26 17:22 | PD.ONC.PN ---
Subjective Subjective Remarks remains intubated ongoing weaning efforts no bleeding no family members present Objective Data Date Time Temp Pulse Resp B/P (MAP) Pulse Ox O2 Delivery O2 Flow Rate FiO2 12/26/16 15:08 99 35 12/26/16 15:08 35 12/26/16 15:00 114 9 92/61 (71) 98 12/26/16 14:00 114 14 95/61 (72) 97 12/26/16 14:00 114 12/26/16 13:00 119 6 103/63 (76) 98 12/26/16 12:00 35 12/26/16 12:00 99.4 119 8 104/67 (79) 97 12/26/16 12:00 119 12/26/16 11:52 98 35 12/26/16 11:00 123 17 94/59 (71) 99 12/26/16 10:18 35 12/26/16 10:00 125 12/26/16 10:00 125 19 102/63 (76) 100 12/26/16 09:00 128 27 103/76 (85) 100 12/26/16 08:00 98.8 121 14 114/75 (88) 100 12/26/16 08:00 35 12/26/16 08:00 121 12/26/16 07:45 35 12/26/16 07:43 100 35 12/26/16 07:43 35 12/26/16 07:00 107 8 101/67 (78) 100 12/26/16 06:00 110 12/26/16 04:03 100 35 12/26/16 04:00 123 12/26/16 04:00 35 12/26/16 04:00 98.2 123 18 106/67 (80) 99 12/26/16 02:00 122 12/26/16 00:24 99 35 12/26/16 00:00 118 12/26/16 00:00 97.9 118 19 95/55 (68) 98 12/26/16 00:00 35 12/25/16 22:00 121 12/25/16 20:40 100 35 12/25/16 20:00 126 12/25/16 20:00 98.3 126 18 101/67 (78) 100 12/25/16 20:00 35 12/25/16 18:00 125 11 103/63 (76) 99 12/25/16 18:00 125 12/25/16 17:41 100 35 12/26/16 12/26/16 12/26/16 07:00 15:00 23:00 Intake Total 1409 ml 269 ml Output Total 510 ml Balance 899 ml 269 ml Result Diagram: 12/26/16 0400 12/26/16 0400 Laboratory Results Laboratory Tests Test 12/26/16 04:00 White Blood Count 8.9 TH/MM3 Red Blood Count 2.91 MIL/MM3 Hemoglobin 9.0 GM/DL Hematocrit 26.1 % Mean Corpuscular Volume 89.7 FL Mean Corpuscular Hemoglobin 30.8 PG Mean Corpuscular Hemoglobin Concent 34.4 % Red Cell Distribution Width 27.6 % Platelet Count 78 TH/MM3 Mean Platelet Volume 8.8 FL CBC Comment AUTO DIFF Differential Total Cells Counted 100 Neutrophils % (Manual) 76 % Band Neutrophils % 6 % Lymphocytes % 8 % Monocytes % 5 % Eosinophils % 4 % Neutrophils # (Manual) 7.4 TH/MM3 Myelocytes 1 % Differential Comment FINAL DIFF MANUAL Platelet Estimate LOW Platelet Morphology Comment ENLARGED Basophilic Stippling MOD Acanthocytes OCC Blood Urea Nitrogen 10 MG/DL Creatinine 0.50 MG/DL Random Glucose 136 MG/DL Calcium Level 8.0 MG/DL Sodium Level 139 MEQ/L Potassium Level 4.1 MEQ/L Chloride Level 101 MEQ/L Carbon Dioxide Level 34.3 MEQ/L Anion Gap 4 MEQ/L Estimat Glomerular Filtration Rate 170 ML/MIN Administered Medications Medications (Trade) Dose Ordered Sig/Ela Route PRN Reason Start Time Stop Time Status Last Admin Dose Admin Sodium Chloride (NS Flush) 2 ml UNSCH PRN IV FLUSH FLUSH AFTER USING IV ACCESS 12/17/16 19:00 12/26/16 07:44 Sodium Chloride (NS Flush) 2 ml BID IV FLUSH 12/17/16 21:00 12/26/16 07:44 Lactobacillus Acidophilus (Lactinex) 1 tab TID PO 12/18/16 09:00 12/26/16 12:44 Albuterol/ Ipratropium (Duoneb Neb) 1 ampule Q2HR NEB PRN NEB wheezing 12/17/16 22:15 12/24/16 16:38 Acetaminophen/ Hydrocodone Bitart ([place] 10-325 Mg) 1 tab Q4H PRN PO PAIN 12/18/16 00:00 12/19/16 05:14 Levofloxacin/ Dextrose 150 ml @ 100 mls/hr Q24H IV 12/18/16 09:00 12/26/16 07:44 Furosemide (Lasix Inj) 20 mg BID@ IV PUSH 12/18/16 09:00 Future Hold 12/18/16 18:26 Budesonide/ Formoterol Fumarate (Symbicort 80-4.5 Mcg Inh) 2 puff Q12HR INH 12/18/16 21:00 12/18/16 20:25 Norepinephrine Bitartrate 250 ml @ 7.5 mls/hr TITRATE PRN IV Blood pressure management 12/19/16 08:15 12/23/16 17:26 Pantoprazole Sodium (Protonix Inj) 40 mg Q12HR IV PUSH 12/19/16 09:30 12/26/16 07:44 Chlorhexidine Gluconate (Peridex 0.12% Liq) 15 ml BID@08,20 OROPHARYNG 12/19/16 20:00 12/26/16 09:32 Miscellaneous Information Patient in critical care unit? Ass... Q361D .XX 12/19/16 20:30 12/19/16 20:30 Fentanyl Citrate 250 ml @ 5 mls/hr TITRATE PRN IV SEDATION 12/22/16 18:30 12/26/16 09:33 Vancomycin HCl 1000 mg/Sodium Chloride 250 ml @ 250 mls/hr Q12H IV 12/23/16 18:00 12/26/16 05:46 Potassium Phosphate (K-Phos) 2,000 mg Q4H PRN PO For Phosphorus < 2.5 mg/dL 12/23/16 10:00 12/25/16 12:32 Insulin Aspart (NovoLOG SUPPLEMENTAL SCALE) 1 Q6H SQ 12/23/16 12:00 12/26/16 11:43 Aztreonam 1000 mg/ Sodium Chloride 100 ml @ 200 mls/hr Q8H IV 12/24/16 10:00 12/26/16 09:32 Docusate Sodium (Colace Liq) 100 mg Q12HR PO 12/24/16 21:00 12/26/16 07:45 Sennosides (Senna Liq) 8.8 mg DAILY PO 12/24/16 17:00 12/26/16 07:45 Albuterol/ Ipratropium (Duoneb Neb) 1 ampule Q4HR NEB NEB 12/24/16 20:00 12/26/16 15:08 Lactulose (Lactulose Liq) 30 ml BID PO 12/26/16 09:00 12/26/16 09:32 Dexmedetomidine HCl 200 mcg/ Sodium Chloride 52 ml @ 4.39 mls/hr TITRATE PRN IV SEDATION 12/26/16 12:00 12/26/16 14:47 Objective Remarks GENERAL: intubated LYMPHATIC: No adenopathy. CARDIOVASCULAR: Regular rate and rhythm without murmurs. RESPIRATORY: coarse b/l breath sounds GASTROINTESTINAL: Abdomen soft, non-tender, nondistended. EXTREMITIES: No cyanosis,edematous Assessment/Plan Problem List: (1) Thrombocytopenia ICD Codes: D69.6 - Thrombocytopenia, unspecified Plan: HIT panel weekly positive--await DALE --coags mildly prolonged. fibrinogen>400 --T.bili WNL, LFT's WNL (2) Pericardial effusion ICD Codes: I31.3 - Pericardial effusion (noninflammatory) Plan: --refusing surgical intervention --does have a large pericardial effusion which may need to be drained. ++chronic right upper lobe consolidated area which appears to be more reactive in nature than malignancy. --may be chronic radiation changes combined with severe emphysema. (3) Anemia of chronic disease ICD Codes: D63.8 - Anemia of chronic disease Status: Chronic Plan: --monitor and transfuse as needed (4) Non-small cell lung cancer Status: Chronic Plan: --history of stage III lung cancer. --treated with combined chemoradiation in 2011. --was definitive treatment with a curative intent. --had complete response after his treatment and he has been under close observation. (5) Acute hypoxemic respiratory failure ICD Codes: J96.01 - Acute respiratory failure with hypoxia Assessment 61y/o male w/ h/o lung cancer, admitted with acute dyspnea and CHF. history of tobacco abuse and COPD/severe emphysema. h/o Hypertension. CHF. River Santana MD Dec 26, 2016 17:22
[2016-12-27] VITALS (25 sets, daily range): BP systolic 71–112; BP diastolic 48–72; PULSE 86–123; RESP 0–18; TEMP 98–98.5; O2SAT 96–100
[2016-12-27] MEDS: RESP: ALBUTEROL 2.5 MG/IPRATROPIUM 0.5 MG NEB (SCH) NEB ×6 (00:30→20:44)
[2016-12-27] MEDS: AZTREONAM INJ 1,000 MG in SODIUM CHLORIDE 0.9% INJ 100 ML IV SCH (01:03)
[2016-12-27 04:44] LABS: UFH SEROTONIN RELEASE RESULT NEGATIVE (NEGATIVE)
[2016-12-27] MEDS ORDERED: PHARMACY ORDERED LAB ONE (05:45)
[2016-12-27] MEDS: INSULIN ASPART SUPPLEMENTAL SCALE SQ SCH ×4 (06:00→18:30)
[2016-12-27 06:08] LABS: HEMATOCRIT 25.1 % (39.0-51.0); MEAN CELL VOLUME 90.9 FL (80.0-100.0); MEAN CORPUSCULAR HEMOGLOBIN 30.5 PG (27.0-34.0); MEAN CORPUSCULAR HGB CONC 33.5 % (32.0-36.0); PLATELET COUNT 71 TH/MM3 (150-450); RED BLOOD COUNT 2.76 MIL/MM3 (4.50-5.90); WHITE BLOOD COUNT 7.6 TH/MM3 (4.0-11.0)
[2016-12-27 06:11] LABS: HEMO FLAGS AUTO DIFF
[2016-12-27 06:25] LABS: BICARBONATE 33.3 MEQ/L (21.0-32.0); POTASSIUM 4.1 MEQ/L (3.5-5.1)
[2016-12-27] MEDS: VANCOMYCIN 1,000 MG/NS 250 ML IV SCH ×2 (06:27)
[2016-12-27 07:46] LABS: BANDS 14 % (0-6); MYELOCYTES 2 % (0-0); NEUTROPHIL # MANUAL DIFF 6.7 TH/MM3 (1.8-7.7); POLYS (SEG NEUTROPHILS) 72 % (16-70); WBC DIFF SAMPLE 100
[2016-12-27 07:48] LABS: PLATELET ESTIMATE SMEAR LOW (NORMAL); PLATELET MORPHOLOGY ENLARGED (NORMAL); SCAN/DIFF FINAL DIFF MANUAL
[2016-12-27 07:49] LABS: KERATOCYTES OCC (NORMAL); POLYCHROMASIA 2.1 % (0.0-1.9)
[2016-12-27] MEDS: DEXMEDETOMIDINE INJ 200 MCG in SODIUM CHLORIDE 0.9% INJ 50 ML IV PRN (08:30)
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
[2016-12-27] MEDS: CHLORHEXIDINE GLUCONATE 0.12% 15 ML CUP OROPHARYNG SCH ×2 (08:58→20:00)
[2016-12-27] MEDS: DOCUSATE SODIUM 100 MG/10 ML UDC PO SCH ×2 (08:59→20:35)
[2016-12-27] MEDS: BUDESONIDE-FORMOTEROL 80/4.5 MCG INHALER INH SCH ×2 (09:00→20:34)
[2016-12-27] MEDS: PANTOPRAZOLE SODIUM 40 MG VIAL IV PUSH SCH ×2 (09:00→20:35)
[2016-12-27] MEDS: METOPROLOL TARTRATE 25 MG TAB PO SCH ×2 (09:01→20:35)
[2016-12-27] MEDS: LEVOFLOXACIN 750 MG PREMIX INJ 150 ML IV SCH (09:01)
[2016-12-27] MEDS: SODIUM CHLORIDE 0.9% FLUSH 10 ML FLUSH IV FLUSH SCH ×2 (09:01→20:34)
[2016-12-27] MEDS: LACTOBACILLUS ACIDOPHILUS TAB PO SCH ×3 (09:01→18:00)
[2016-12-27] MEDS: SENNOSIDES SYRUP 8.8 MG/5 ML CUP PO SCH (09:01)
[2016-12-27] MEDS: LACTULOSE SYRUP 20 GM/30 ML CUP PO SCH ×3 (10:00→18:00)
--- NOTE | 2016-12-27 10:01 | RADRPT ---
EXAM DATE/TIME: 12/27/2016 09:03 [place] COMPARISON: PELVIS AP ONLY, July 04, 2015, 14:01. INDICATIONS : Abdomen pain, evaluate ileus MEDICAL HISTORY : Carcinoma, lung. Chronic obstructive pulmonary disease. Gastroesophageal reflux disease. cardiac disease SURGICAL HISTORY : None. ENCOUNTER: Subsequent ACUITY: 1 week PAIN SCORE: Non-responsive. LOCATION: Bilateral abdomen FINDINGS: Gastric tube tip ends side-port project within the stomach. Gas is seen in loops of small and large bowel without disproportionate dilated loops. Right lumbar scoliosis. There has been an increase in the amount of collapse of the right femoral head when compared to 07/04/15 and increased size supra-ac etabular sclerosis. There is a new abnormality involving the superior one third of the left femoral head characterized by an oval hypodense area with loss of the superior curvature of the head CONCLUSION: 1. No dilated loops of small or large bowel. 2. 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 Findings are more severe on the right than the left. Jose Antonio Hogan MD on December 27, 2016 at 9:56 Board Certified Radiologist. This report was verified electronically.
[2016-12-27] MEDS: LINEZOLID 600 MG TAB PO SCH ×2 (11:06→20:35)
[2016-12-27] MEDS: BUMETANIDE INJ 1 MG/4 ML VIAL IV PUSH ONE ×2 (11:06→14:42)
[2016-12-27 14:49] LABS: BLOOD GAS BASE EXCESS 10.3 mmol/L (-2-2); BLOOD GAS CARBOXYHEMOGLOBIN 1.8 % (0-4); BLOOD GAS HCO3 35 mmol/L (22-26); BLOOD GAS O2 HGB SATURATION 94 % (90-100); BLOOD GAS OXYGEN CONTENT 11.6 Vol % (12.0-20.0); BLOOD GAS PCO2 58 mmHg (38-42); BLOOD GAS PO2 92 mmHg (61-120); BLOOD GAS TOTAL HGB 8.7 G/DL (12.0-16.0); TEMP CORR TO 98.6
[2016-12-27 14:50] LABS: CRITICAL VALUE YES; DRAW SITE RT RADIAL; FIO2 35 %; NUMBER OF ARTERIAL PUNCTURES 1; OXYGEN DEVICE VENTILATOR; STAT NO; ULNAR PULSE PRESENT; VENT SETTINGS CPAP/PS5/PEEP5
[2016-12-27] MEDS: fentaNYL DRIP 250 ML IV PRN (15:24)
--- NOTE | 2016-12-27 23:04 | PD.ONC.PN ---
Subjective Subjective Remarks remains intubated on CPAP no bleeding anemia 8.4 PLT stable on going critical care Objective Data Date Time Temp Pulse Resp B/P (MAP) Pulse Ox O2 Delivery O2 Flow Rate FiO2 12/27/16 22:00 97 12/27/16 20:37 100 35 12/27/16 20:35 35 12/27/16 20:00 106 12/27/16 20:00 35 12/27/16 20:00 98.3 106 18 102/65 (77) 99 12/27/16 18:00 107 12/27/16 16:00 35 12/27/16 16:00 98.2 102 10 99/66 (77) 100 12/27/16 16:00 103 12/27/16 15:54 99 35 12/27/16 15:00 101 8 98/64 (75) 100 12/27/16 15:00 35 12/27/16 14:15 35 12/27/16 14:15 96 35 12/27/16 14:00 99 7 85/58 (67) 99 12/27/16 14:00 99 12/27/16 13:00 98 7 87/57 (67) 98 12/27/16 12:00 35 12/27/16 12:00 98.0 93 10 98/63 (75) 98 12/27/16 12:00 96 12/27/16 11:34 99 35 12/27/16 11:00 88 9 92/55 (67) 98 12/27/16 10:58 86 13 71/48 (56) 98 12/27/16 10:00 96 10 86/53 (64) 99 12/27/16 10:00 96 12/27/16 09:00 121 15 111/69 (83) 98 12/27/16 08:00 98.0 123 8 112/72 (85) 100 12/27/16 08:00 123 12/27/16 08:00 35 12/27/16 07:40 100 35 12/27/16 07:40 35 12/27/16 07:35 35 12/27/16 07:00 117 12/27/16 07:00 35 12/27/16 07:00 117 16 101/65 (77) 100 12/27/16 06:00 117 12/27/16 04:00 120 12/27/16 04:00 98.1 120 12 102/58 (73) 98 12/27/16 04:00 35 12/27/16 03:07 99 35 12/27/16 02:00 116 12/27/16 00:31 99 35 12/27/16 00:00 98.5 12/27/16 00:00 35 12/27/16 00:00 100 12/27/16 00:00 98.5 100 0 81/53 (62) 97 Result Diagram: 12/27/16 0458 12/27/16 0458 Laboratory Results Laboratory Tests Test 12/27/16 04:58 12/27/16 14:32 White Blood Count 7.6 TH/MM3 Red Blood Count 2.76 MIL/MM3 Hemoglobin 8.4 GM/DL Hematocrit 25.1 % Mean Corpuscular Volume 90.9 FL Mean Corpuscular Hemoglobin 30.5 PG Mean Corpuscular Hemoglobin Concent 33.5 % Red Cell Distribution Width 28.0 % Platelet Count 71 TH/MM3 Mean Platelet Volume 9.0 FL CBC Comment AUTO DIFF Differential Total Cells Counted 100 Neutrophils % (Manual) 72 % Band Neutrophils % 14 % Lymphocytes % 5 % Monocytes % 7 % Neutrophils # (Manual) 6.7 TH/MM3 Myelocytes 2 % Differential Comment FINAL DIFF MANUAL Platelet Estimate LOW Platelet Morphology Comment ENLARGED Polychromasia 2.1 % Keratocytes OCC Blood Urea Nitrogen 13 MG/DL Creatinine 0.54 MG/DL Random Glucose 129 MG/DL Calcium Level 8.2 MG/DL Sodium Level 141 MEQ/L Potassium Level 4.1 MEQ/L Chloride Level 101 MEQ/L Carbon Dioxide Level 33.3 MEQ/L Anion Gap 7 MEQ/L Estimat Glomerular Filtration Rate 155 ML/MIN Blood Gas Puncture Site RT RADIAL Blood Gas Patient Temperature 98.6 Blood Gas HCO3 35 mmol/L Blood Gas Base Excess 10.3 mmol/L Blood Gas Oxygen Saturation 94 % Arterial Blood pH 7.40 Arterial Blood Partial Pressure CO2 58 mmHg Arterial Blood Partial Pressure O2 92 mmHg Arterial Blood Oxygen Content 11.6 Vol % Arterial Blood Carboxyhemoglobin 1.8 % Arterial Blood Methemoglobin 1.0 % Blood Gas Hemoglobin 8.7 G/DL Oxygen Delivery Device VENTILATOR Blood Gas Ventilator Setting CPAP/PS5/PEEP5 Blood Gas Inspired Oxygen 35 % Imaging Studies Last 24 hours Impressions Abdomen X-Ray 12/27/16 0000 Signed Impressions: Service Date/Time: December 09:03 - CONCLUSION: 1. No dilated loops of small or large bowel. 2. 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 Findings are more severe on the right than the left. Jose Antonio Hogan MD Administered Medications Medications (Trade) Dose Ordered Sig/Ela Route PRN Reason Start Time Stop Time Status Last Admin Dose Admin Sodium Chloride (NS Flush) 2 ml UNSCH PRN IV FLUSH FLUSH AFTER USING IV ACCESS 12/17/16 19:00 12/26/16 07:44 Sodium Chloride (NS Flush) 2 ml BID IV FLUSH 12/17/16 21:00 12/27/16 20:34 Lactobacillus Acidophilus (Lactinex) 1 tab TID PO 12/18/16 09:00 12/27/16 18:00 Albuterol/ Ipratropium (Duoneb Neb) 1 ampule Q2HR NEB PRN NEB wheezing 12/17/16 22:15 12/24/16 16:38 Acetaminophen/ Hydrocodone Bitart ([place] [address] 10-325 Mg) 1 tab Q4H PRN PO PAIN 12/18/16 00:00 12/19/16 05:14 Levofloxacin/ Dextrose 150 ml @ 100 mls/hr Q24H IV 12/18/16 09:00 12/27/16 09:01 Furosemide (Lasix Inj) 20 mg BID@09,18 IV PUSH 12/18/16 09:00 Future Hold 12/18/16 18:26 Budesonide/ Formoterol Fumarate (Symbicort 80-4.5 Mcg Inh) 2 puff Q12HR INH 12/18/16 21:00 12/18/16 20:25 Norepinephrine Bitartrate 250 ml @ 7.5 mls/hr TITRATE PRN IV Blood pressure management 12/19/16 08:15 12/23/16 17:26 Pantoprazole Sodium (Protonix Inj) 40 mg Q12HR IV PUSH 12/19/16 09:30 12/27/16 20:35 Chlorhexidine Gluconate (Peridex 0.12% Liq) 15 ml BID@08,20 OROPHARYNG 12/19/16 20:00 12/27/16 20:00 Miscellaneous Information Patient in critical care unit? Ass... Q361D .XX 12/19/16 20:30 12/19/16 20:30 Fentanyl Citrate 250 ml @ 5 mls/hr TITRATE PRN IV SEDATION 12/22/16 18:30 12/27/16 15:24 Potassium Phosphate (K-Phos) 2,000 mg Q4H PRN PO For Phosphorus < 2.5 mg/dL 12/23/16 10:00 12/25/16 12:32 Insulin Aspart (NovoLOG SUPPLEMENTAL SCALE) 1 Q6H SQ 12/23/16 12:00 12/26/16 11:43 Docusate Sodium (Colace Liq) 100 mg Q12HR PO 12/24/16 21:00 12/27/16 20:35 Sennosides (Senna Liq) 8.8 mg DAILY PO 12/24/16 17:00 12/27/16 09:01 Albuterol/ Ipratropium (Duoneb Neb) 1 ampule Q4HR NEB NEB 12/24/16 20:00 12/27/16 20:44 Metoprolol Tartrate (Lopressor) 25 mg Q12HR PO 12/26/16 09:00 12/27/16 20:35 Dexmedetomidine HCl 200 mcg/ Sodium Chloride 52 ml @ 4.39 mls/hr TITRATE PRN IV SEDATION 12/26/16 12:00 12/27/16 08:30 Linezolid (Zyvox) 600 mg Q12HR PO 12/27/16 10:00 12/27/16 20:35 Lactulose (Lactulose Liq) 30 ml TID PO 12/27/16 10:00 12/27/16 18:00 Objective Remarks GENERAL: nad SKIN: Warm and dry. HEAD: Normocephalic. EYES: No scleral icterus. No injection or drainage. NECK: Supple, trachea midline. No JVD or lymphadenopathy. LYMPHATIC: No adenopathy. CARDIOVASCULAR: Regular rate and rhythm without murmurs. RESPIRATORY: coarse breath sounds . GASTROINTESTINAL: Abdomen soft, non-tender, nondistended. EXTREMITIES: No cyanosis, or edema. Assessment/Plan Problem List: (1) Thrombocytopenia ICD Codes: D69.6 - Thrombocytopenia, unspecified Plan: HIT panel weekly positive--await DALE --coags mildly prolonged. fibrinogen>400 --T.bili WNL, LFT's WNL (2) Pericardial effusion ICD Codes: I31.3 - Pericardial effusion (noninflammatory) Plan: --refusing surgical intervention --does have a large pericardial effusion which may need to be drained. ++chronic right upper lobe consolidated area which appears to be more reactive in nature than malignancy. --may be chronic radiation changes combined with severe emphysema. (3) Anemia of chronic disease ICD Codes: D63.8 - Anemia of chronic disease Status: Chronic Plan: --monitor and transfuse as needed (4) Non-small cell lung cancer Status: Chronic Plan: --history of stage III lung cancer. --treated with combined chemoradiation in 2011. --was definitive treatment with a curative intent. --had complete response after his treatment and he has been under close observation. (5) Acute hypoxemic respiratory failure ICD Codes: J96.01 - Acute respiratory failure with hypoxia Assessment 61y/o male w/ h/o lung cancer, admitted with acute dyspnea and CHF. history of tobacco abuse and COPD/severe emphysema. h/o Hypertension. CHF. Plan 1. Anemia due to acute illness: no blood products today 2. Thrombocytopenia: stable due to sepsis/illness. DALE negative --Not HIT- 3. Hx of Lung cancer 4. Cardiac tamponade/respiratory failure River Santana MD Dec 27, 2016 23:04
[2016-12-28] VITALS (20 sets, daily range): BP systolic 88–111; BP diastolic 56–78; PULSE 100–119; RESP 9–23; TEMP 98.1–99.3; O2SAT 97–100
[2016-12-28] MEDS: RESP: ALBUTEROL 2.5 MG/IPRATROPIUM 0.5 MG NEB (SCH) NEB ×4 (00:59→12:07)
[2016-12-28 05:15] LABS: HEMATOCRIT 28.2 % (39.0-51.0); MEAN CELL VOLUME 89.3 FL (80.0-100.0); MEAN CORPUSCULAR HEMOGLOBIN 30.4 PG (27.0-34.0); RED BLOOD COUNT 3.16 MIL/MM3 (4.50-5.90); RED CELL DISTRIBUTION WIDTH 28.4 % (11.6-17.2); WHITE BLOOD COUNT 8.9 TH/MM3 (4.0-11.0)
[2016-12-28 05:31] LABS: BICARBONATE 34.4 MEQ/L (21.0-32.0); POTASSIUM 3.5 MEQ/L (3.5-5.1)
[2016-12-28 05:32] LABS: HEMO FLAGS AUTO DIFF
[2016-12-28] MEDS: INSULIN ASPART SUPPLEMENTAL SCALE SQ SCH ×3 (05:40→17:46)
[2016-12-28] MEDS: POTASSIUM CHLORIDE 25 MEQ EFFERVESCENT TAB PO PRN (05:50)
[2016-12-28 07:08] LABS: PLATELET COUNT 90 TH/MM3 (150-450)
[2016-12-28 07:12] LABS: ACANTHOCYTES 1+ (NORMAL); BANDS 9 % (0-6); BASOPHILS 3 % (0-2); EOSINOPHILS 1 % (0-4); NEUTROPHIL # MANUAL DIFF 7.1 TH/MM3 (1.8-7.7); PLATELET ESTIMATE SMEAR LOW (NORMAL); POLYS (SEG NEUTROPHILS) 71 % (16-70); TOXIC GRANULATION 1+ (NORMAL); WBC DIFF SAMPLE 100
[2016-12-28 07:13] LABS: PLATELET MORPHOLOGY ENLARGED (NORMAL); SCAN/DIFF FINAL DIFF MANUAL
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
[2016-12-28] MEDS: DOCUSATE SODIUM 100 MG/10 ML UDC PO SCH ×2 (09:00→20:43)
[2016-12-28] MEDS: LACTULOSE SYRUP 20 GM/30 ML CUP PO SCH ×3 (09:00→17:45)
[2016-12-28] MEDS: SENNOSIDES SYRUP 8.8 MG/5 ML CUP PO SCH (09:00)
[2016-12-28] MEDS: SODIUM CHLORIDE 0.9% FLUSH 10 ML FLUSH IV FLUSH SCH ×2 (09:27→20:43)
[2016-12-28] MEDS: METOPROLOL TARTRATE 25 MG TAB PO SCH ×2 (09:29→21:00)
[2016-12-28] MEDS: LACTOBACILLUS ACIDOPHILUS TAB PO SCH ×3 (09:29→17:45)
[2016-12-28] MEDS: LINEZOLID 600 MG TAB PO SCH ×2 (09:29→20:42)
[2016-12-28] MEDS: PANTOPRAZOLE SODIUM 40 MG VIAL IV PUSH SCH ×2 (09:29→20:42)
[2016-12-28] MEDS: LEVOFLOXACIN 750 MG PREMIX INJ 150 ML IV SCH (09:30)
[2016-12-28 12:49] LABS: BLOOD GAS BASE EXCESS 10.4 mmol/L (-2-2); BLOOD GAS CARBOXYHEMOGLOBIN 1.9 % (0-4); BLOOD GAS HCO3 35 mmol/L (22-26); BLOOD GAS METHEMOGLOBIN 0.3 % (0-2); BLOOD GAS O2 HGB SATURATION 95 % (90-100); BLOOD GAS PCO2 57 mmHg (38-42); BLOOD GAS PO2 85 mmHG (61-120); BLOOD GAS TOTAL HGB 8.9 G/DL (12.0-16.0); TEMP CORR TO 98.6
[2016-12-28 12:50] LABS: CRITICAL VALUE YES
[2016-12-28 12:51] LABS: DRAW SITE RT RADIAL; FIO2 35 %; NUMBER OF ARTERIAL PUNCTURES 1; OXYGEN DEVICE VENTILATOR; STAT NO; ULNAR PULSE PRESENT; VENT SETTINGS CPAP5/PS8
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
[2016-12-28] MEDS: BUDESONIDE-FORMOTEROL 80/4.5 MCG INHALER INH SCH (20:43)
[2016-12-28] MEDS: CHLORHEXIDINE GLUCONATE 0.12% 15 ML CUP OROPHARYNG SCH (20:43)
[2016-12-28] MEDS: RESP: ALBUTEROL 2.5 MG/IPRATROPIUM 0.5 MG NEB (PRN) NEB (20:45)
--- NOTE | 2016-12-28 21:32 | PD.ONC.PN ---
Subjective Subjective Remarks REMAINS INTUBATED NO BLEEDING F/U FOR THROMBOCYTOPENIA AND ANEMIA Objective Data Date Time Temp Pulse Resp B/P (MAP) Pulse Ox O2 Delivery O2 Flow Rate FiO2 12/28/16 20:45 100 35 12/28/16 18:00 109 12/28/16 16:31 99 35 12/28/16 16:00 35 12/28/16 16:00 105 12/28/16 16:00 98.1 105 94/62 (73) 97 12/28/16 14:00 103 12/28/16 12:07 99 35 12/28/16 12:00 98.4 100 19 100/64 (76) 99 12/28/16 12:00 100 12/28/16 12:00 35 12/28/16 10:00 100 12/28/16 08:00 35 12/28/16 08:00 98.3 119 111/78 (89) 99 12/28/16 08:00 119 12/28/16 07:56 35 12/28/16 07:56 100 35 12/28/16 06:00 116 12/28/16 04:02 100 35 12/28/16 04:00 99.0 109 9 101/56 (71) 100 12/28/16 04:00 35 12/28/16 04:00 109 12/28/16 02:00 109 12/28/16 00:36 100 35 12/28/16 00:00 98.1 104 16 97/63 (74) 12/28/16 00:00 35 12/28/16 00:00 104 12/27/16 22:00 97 12/28/16 12/28/16 12/28/16 07:00 15:00 23:00 Intake Total 802 ml 285.9 ml Output Total 750 ml 500 ml Balance 52 ml -214.1 ml Result Diagram: 12/28/16 0437 12/28/16 0437 Laboratory Results Laboratory Tests Test 12/28/16 04:37 12/28/16 12:28 White Blood Count 8.9 TH/MM3 Red Blood Count 3.16 MIL/MM3 Hemoglobin 9.6 GM/DL Hematocrit 28.2 % Mean Corpuscular Volume 89.3 FL Mean Corpuscular Hemoglobin 30.4 PG Mean Corpuscular Hemoglobin Concent 34.0 % Red Cell Distribution Width 28.4 % Platelet Count 90 TH/MM3 Mean Platelet Volume 9.4 FL CBC Comment AUTO DIFF Differential Total Cells Counted 100 Neutrophils % (Manual) 71 % Band Neutrophils % 9 % Lymphocytes % 7 % Monocytes % 9 % Eosinophils % 1 % Basophils % 3 % Neutrophils # (Manual) 7.1 TH/MM3 Differential Comment FINAL DIFF MANUAL Toxic Granulation 1+ Platelet Estimate LOW Platelet Morphology Comment ENLARGED Basophilic Stippling MOD Acanthocytes 1+ Blood Urea Nitrogen 14 MG/DL Creatinine 0.55 MG/DL Random Glucose 137 MG/DL Calcium Level 8.8 MG/DL Sodium Level 141 MEQ/L Potassium Level 3.5 MEQ/L Chloride Level 100 MEQ/L Carbon Dioxide Level 34.4 MEQ/L Anion Gap 7 MEQ/L Estimat Glomerular Filtration Rate 152 ML/MIN Blood Gas Puncture Site RT RADIAL Blood Gas Patient Temperature 98.6 Blood Gas HCO3 35 mmol/L Blood Gas Base Excess 10.4 mmol/L Blood Gas Oxygen Saturation 95 % Arterial Blood pH 7.41 Arterial Blood Partial Pressure CO2 57 mmHg Arterial Blood Partial Pressure O2 85 mmHG Arterial Blood Oxygen Content 12.0 Vol % Arterial Blood Carboxyhemoglobin 1.9 % Arterial Blood Methemoglobin 0.3 % Blood Gas Hemoglobin 8.9 G/DL Oxygen Delivery Device VENTILATOR Blood Gas Ventilator Setting CPAP5/PS8 Blood Gas Inspired Oxygen 35 % Culture Results Microbiology Date/Time Source Procedure Growth Status 12/28/16 10:16 Sputum Endotracheal Gram Stain - Final Resulted 12/28/16 10:16 Sputum Endotracheal Sputum Culture Pending Resulted Administered Medications Medications (Trade) Dose Ordered Sig/Ela Route PRN Reason Start Time Stop Time Status Last Admin Dose Admin Sodium Chloride (NS Flush) 2 ml UNSCH PRN IV FLUSH FLUSH AFTER USING IV ACCESS 12/17/16 19:00 12/26/16 07:44 Sodium Chloride (NS Flush) 2 ml BID IV FLUSH 12/17/16 21:00 12/28/16 20:43 Ondansetron HCl (Zofran Inj) 4 mg Q6H PRN IVP NAUSEA OR VOMITING 12/17/16 19:00 12/28/16 07:28 Lactobacillus Acidophilus (Lactinex) 1 tab TID PO 12/18/16 09:00 12/28/16 17:45 Albuterol/ Ipratropium (Duoneb Neb) 1 ampule Q2HR NEB PRN NEB wheezing 12/17/16 22:15 12/28/16 20:45 Acetaminophen/ Hydrocodone Bitart ([place] 10-325 Mg) 1 tab Q4H PRN PO PAIN 12/18/16 00:00 12/19/16 05:14 Levofloxacin/ Dextrose 150 ml @ 100 mls/hr Q24H IV 12/18/16 09:00 12/28/16 09:30 Furosemide (Lasix Inj) 20 mg BID@,18 IV PUSH 12/18/16 09:00 Future Hold 12/18/16 18:26 Budesonide/ Formoterol Fumarate (Symbicort 80-4.5 Mcg Inh) 2 puff Q12HR INH 12/18/16 21:00 12/18/16 20:25 Norepinephrine Bitartrate 250 ml @ 7.5 mls/hr TITRATE PRN IV Blood pressure management 12/19/16 08:15 12/23/16 17:26 Pantoprazole Sodium (Protonix Inj) 40 mg Q12HR IV PUSH 12/19/16 09:30 12/28/16 20:42 Chlorhexidine Gluconate (Peridex 0.12% Liq) 15 ml BID@08,20 OROPHARYNG 12/19/16 20:00 12/28/16 20:43 Miscellaneous Information Patient in critical care unit? Ass... [id number] .XX 12/19/16 20:30 12/19/16 20:30 Fentanyl Citrate 250 ml @ 5 mls/hr TITRATE PRN IV SEDATION 12/22/16 18:30 12/27/16 15:24 Potassium Bicarb/ Potassium Chloride (K-Lyte Cl Eff) 50 meq UNSCH PRN PO For Potassium 3.3 - 3.5 mEq/L 12/23/16 10:00 12/28/16 05:50 Potassium Phosphate (K-Phos) 2,000 mg Q4H PRN PO For Phosphorus < 2.5 mg/dL 12/23/16 10:00 12/25/16 12:32 Insulin Aspart (NovoLOG SUPPLEMENTAL SCALE) 1 Q6H SQ 12/23/16 12:00 12/26/16 11:43 Docusate Sodium (Colace Liq) 100 mg Q12HR PO 12/24/16 21:00 12/27/16 20:35 Sennosides (Senna Liq) 8.8 mg DAILY PO 12/24/16 17:00 12/27/16 09:01 Metoprolol Tartrate (Lopressor) 25 mg Q12HR PO 12/26/16 09:00 12/28/16 09:29 Dexmedetomidine HCl 200 mcg/ Sodium Chloride 52 ml @ 4.39 mls/hr TITRATE PRN IV SEDATION 12/26/16 12:00 12/27/16 08:30 Linezolid (Zyvox) 600 mg Q12HR PO 12/27/16 10:00 12/28/16 20:42 Lactulose (Lactulose Liq) 30 ml TID PO 12/27/16 10:00 12/27/16 18:00 Objective Remarks GENERAL: ACUTELY ILL SKIN: Warm and dry. LYMPHATIC: No adenopathy. CARDIOVASCULAR: Regular rate and rhythm without murmurs. RESPIRATORY: Breath sounds equal bilaterally. No accessory muscle use. GASTROINTESTINAL: Abdomen soft, non-tender, nondistended. EXTREMITIES: No cyanosis, EDEMATOUS . Assessment/Plan Problem List: (1) Thrombocytopenia ICD Codes: D69.6 - Thrombocytopenia, unspecified Plan: HIT panel weekly positive--await DALE --coags mildly prolonged. fibrinogen>400 --T.bili WNL, LFT's WNL (2) Pericardial effusion ICD Codes: I31.3 - Pericardial effusion (noninflammatory) Plan: --refusing surgical intervention --does have a large pericardial effusion which may need to be drained. ++chronic right upper lobe consolidated area which appears to be more reactive in nature than malignancy. --may be chronic radiation changes combined with severe emphysema. (3) Anemia of chronic disease ICD Codes: D63.8 - Anemia of chronic disease Status: Chronic Plan: --monitor and transfuse as needed (4) Non-small cell lung cancer Status: Chronic Plan: --history of stage III lung cancer. --treated with combined chemoradiation in 2011. --was definitive treatment with a curative intent. --had complete response after his treatment and he has been under close observation. (5) Acute hypoxemic respiratory failure ICD Codes: J96.01 - Acute respiratory failure with hypoxia Assessment 61y/o male w/ h/o lung cancer, admitted with acute dyspnea and CHF. history of tobacco abuse and COPD/severe emphysema. h/o Hypertension. CHF. Plan 1. Anemia due to acute illness: no blood products today HB 9.6 2. Thrombocytopenia: stable due to sepsis/illness. DALE negative --Not HIT- CHECK DAILY FIBRINOGEN AND INR 3. Hx of Lung cancer 4. Cardiac tamponade/respiratory failure River Santana MD Dec 28, 2016 21:32
[2016-12-29] VITALS (19 sets, daily range): BP systolic 93–134; BP diastolic 58–68; PULSE 98–120; RESP 11–31; TEMP 97.9–98.7; O2SAT 95–100
[2016-12-29] MEDS: ACETAMINOPHEN/HYDROcodone 325 MG/10 MG TAB PO PRN (00:09)
[2016-12-29] MEDS: RESP: ALBUTEROL 2.5 MG/IPRATROPIUM 0.5 MG NEB (PRN) NEB ×2 (03:49→07:36)
[2016-12-29 03:55] LABS: AUTOMATED NEUTROPHIL # 4.6 TH/MM3 (1.8-7.7); BASOPHIL # 0.6 TH/MM3 (0-0.2); BASOPHIL % 9.6 % (0.0-2.0); EOSINOPHIL % 0.5 % (0.0-4.0); LYMPH % 10.5 % (9.0-44.0); LYMPHOCYTE # 0.7 TH/MM3 (1.0-4.8); MEAN CELL VOLUME 89.5 FL (80.0-100.0); MEAN CORPUSCULAR HEMOGLOBIN 29.9 PG (27.0-34.0); MEAN CORPUSCULAR HGB CONC 33.4 % (32.0-36.0); NEUT % 69.4 % (16.0-70.0); PLATELET COUNT 90 TH/MM3 (150-450); RED BLOOD COUNT 2.68 MIL/MM3 (4.50-5.90); RED CELL DISTRIBUTION WIDTH 27.7 % (11.6-17.2); WHITE BLOOD COUNT 6.6 TH/MM3 (4.0-11.0)
[2016-12-29] MEDS: fentaNYL DRIP 250 ML IV PRN (04:12)
[2016-12-29 04:28] LABS: INTERNATIONAL NORMALIZED RATIO 1.1 RATIO; PROTHROMBIN TIME - PATIENT 12.4 SEC (9.8-11.6)
[2016-12-29 04:29] LABS: BICARBONATE 36.9 MEQ/L (21.0-32.0); MAGNESIUM 2.3 MG/DL (1.5-2.5)
[2016-12-29 05:03] LABS: HEMO FLAGS AUTO DIFF
--- NOTE | 2016-12-29 05:22 | RADRPT ---
EXAM DATE/TIME: 12/29/2016 03:54 [facility] COMPARISON: CHEST SINGLE AP, December 25, 2016, 9:53. INDICATIONS : Shortness of breath, possible pulmonary disease. MEDICAL HISTORY : Carcinoma, lung. Chronic obstructive pulmonary disease. Gastroesophageal reflux disease. Cardiac disease. SURGICAL HISTORY : None. ENCOUNTER: Subsequent ACUITY: 1 week PAIN SCORE: Non-responsive. LOCATION: Bilateral chest FINDINGS: Volume loss with an area of dense consolidation again seen right upper lobe. Mild, patchy airspace op acities are seen diffusely in the left lung, not significantly changed. No large effusion. No pneumot horax. Mild cardiomegaly is stable. Patient remains intubated. Endotracheal tube tip is approximately 3 cm above the alber. There is a n asogastric tube coursing into the stomach. Right internal jugular Oskyda-i-Przi catheter again seen, tip at the atriocaval junction. CONCLUSION: No significant change. Please see above. Jose Francois MD on December 29, 2016 at 5:18 Board Certified Radiologist. This report was verified electronically.
[2016-12-29 05:24] LABS: BANDS 7 % (0-6); METAMYELOCYTES 2 % (0-1); MYELOCYTES 2 % (0-0); NEUTROPHIL # MANUAL DIFF 5.3 TH/MM3 (1.8-7.7); POLYS (SEG NEUTROPHILS) 69 % (16-70); WBC DIFF SAMPLE 100
[2016-12-29 05:25] LABS: KERATOCYTES OCC (NORMAL)
[2016-12-29 05:27] LABS: PLATELET MORPHOLOGY ENLARGED (NORMAL); SCAN/DIFF FINAL DIFF MANUAL
[2016-12-29 05:36] LABS: PLATELET ESTIMATE SMEAR LOW (NORMAL)
[2016-12-29] MEDS: INSULIN ASPART SUPPLEMENTAL SCALE SQ SCH ×4 (05:44→20:00)
[2016-12-29] MEDS: CHLORHEXIDINE GLUCONATE 0.12% 15 ML CUP OROPHARYNG SCH ×2 (08:00→20:00)
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
[2016-12-29] MEDS: SENNOSIDES SYRUP 8.8 MG/5 ML CUP PO SCH (09:00)
[2016-12-29] MEDS: LACTULOSE SYRUP 20 GM/30 ML CUP PO SCH ×3 (09:00→17:32)
[2016-12-29] MEDS: BUDESONIDE-FORMOTEROL 80/4.5 MCG INHALER INH SCH ×2 (09:00→21:18)
[2016-12-29] MEDS: METOPROLOL TARTRATE 25 MG TAB PO SCH ×3 (09:00→20:15)
[2016-12-29] MEDS: SODIUM CHLORIDE 0.9% FLUSH 10 ML FLUSH IV FLUSH SCH ×2 (09:42→20:10)
[2016-12-29] MEDS: LACTOBACILLUS ACIDOPHILUS TAB PO SCH ×3 (09:42→17:32)
[2016-12-29] MEDS: LEVOFLOXACIN 750 MG PREMIX INJ 150 ML IV SCH (09:42)
[2016-12-29] MEDS: PANTOPRAZOLE SODIUM 40 MG VIAL IV PUSH SCH ×2 (09:42→20:10)
[2016-12-29] MEDS: DOCUSATE SODIUM 100 MG/10 ML UDC PO SCH ×2 (09:42→20:10)
[2016-12-29] MEDS: LINEZOLID 600 MG TAB PO SCH ×2 (09:42→20:10)
[2016-12-29] MEDS: DIAZEPAM 5 MG TAB PO PRN ×2 (14:14→21:28)
--- NOTE | 2016-12-29 15:02 | PD.ONC.PN ---
Subjective Subjective Remarks critically ill no bleeding weaning trials palliative care seeing patient Objective Data Date Time Temp Pulse Resp B/P (MAP) Pulse Ox O2 Delivery O2 Flow Rate FiO2 12/29/16 14:00 100 12/29/16 12:00 117 12/29/16 12:00 98.6 117 11 108/58 (75) 97 12/29/16 10:35 94 Nasal Cannula 4.00 12/29/16 10:02 96 Nasal Cannula 4 36 12/29/16 10:00 112 12/29/16 08:00 35 12/29/16 08:00 98.4 112 13 102/58 (73) 97 12/29/16 07:37 35 12/29/16 07:37 95 35 12/29/16 06:00 109 12/29/16 04:00 111 12/29/16 04:00 111 13 96/61 (73) 100 12/29/16 04:00 35 12/29/16 03:49 100 35 12/29/16 02:00 117 12/29/16 00:24 97 35 12/29/16 00:00 35 12/29/16 00:00 112 12/29/16 00:00 98.7 112 16 93/61 (72) 96 12/28/16 23:00 115 23 93/62 (72) 99 12/28/16 22:00 108 12/28/16 22:00 108 88/56 (67) 100 12/28/16 21:00 109 102/57 (72) 100 12/28/16 20:45 100 35 12/28/16 20:00 99.3 108 20 99/60 (73) 98 12/28/16 20:00 108 12/28/16 20:00 35 12/28/16 18:00 109 12/28/16 16:31 99 35 12/28/16 16:00 35 12/28/16 16:00 105 12/28/16 16:00 98.1 105 94/62 (73) 97 12/29/16 12/29/16 12/29/16 07:00 15:00 23:00 Intake Total 206.7 ml Output Total 425 ml Balance -218.3 ml Result Diagram: 12/29/16 0334 12/29/16 033 Laboratory Results Laboratory Tests Test 12/29/16 03:34 White Blood Count 6.6 TH/MM3 Red Blood Count 2.68 MIL/MM3 Hemoglobin 8.0 GM/DL Hematocrit 24.0 % Mean Corpuscular Volume 89.5 FL Mean Corpuscular Hemoglobin 29.9 PG Mean Corpuscular Hemoglobin Concent 33.4 % Red Cell Distribution Width 27.7 % Platelet Count 90 TH/MM3 Mean Platelet Volume 9.0 FL Neutrophils (%) (Auto) 69.4 % Lymphocytes (%) (Auto) 10.5 % Monocytes (%) (Auto) 10.0 % Eosinophils (%) (Auto) 0.5 % Basophils (%) (Auto) 9.6 % Neutrophils # (Auto) 4.6 TH/MM3 Lymphocytes # (Auto) 0.7 TH/MM3 Monocytes # (Auto) 0.7 TH/MM3 Eosinophils # (Auto) 0.0 TH/MM3 Basophils # (Auto) 0.6 TH/MM3 CBC Comment AUTO DIFF Differential Total Cells Counted 100 Neutrophils % (Manual) 69 % Band Neutrophils % 7 % Lymphocytes % 9 % Monocytes % 11 % Neutrophils # (Manual) 5.3 TH/MM3 Metamyelocytes 2 % Myelocytes 2 % Differential Comment FINAL DIFF MANUAL Atypical Lymphocytes % Platelet Estimate LOW Platelet Morphology Comment ENLARGED Basophilic Stippling FAINT Keratocytes OCC Prothrombin Time 12.4 SEC Prothromb Time International Ratio 1.1 RATIO Fibrinogen 420 mg/dL Blood Urea Nitrogen 13 MG/DL Creatinine 0.56 MG/DL Random Glucose 85 MG/DL Calcium Level 8.0 MG/DL Phosphorus Level 3.7 MG/DL Magnesium Level 2.3 MG/DL Sodium Level 142 MEQ/L Potassium Level 4.0 MEQ/L Chloride Level 102 MEQ/L Carbon Dioxide Level 36.9 MEQ/L Anion Gap 3 MEQ/L Estimat Glomerular Filtration Rate 149 ML/MIN Culture Results Microbiology Date/Time Source Procedure Growth Status 12/28/16 10:16 Sputum Endotracheal Gram Stain - Final Resulted 12/28/16 10:16 Sputum Culture - Preliminary Staphylococcus Aureus Resulted Imaging Studies Last 24 hours Impressions Chest X-Ray 12/29/16 0600 Signed Impressions: Service Date/Time: Thursday, December 29, 2016 03:54 - CONCLUSION: No significant change. Please see above. Jose Francois MD Administered Medications Medications (Trade) Dose Ordered Sig/Ela Route PRN Reason Start Time Stop Time Status Last Admin Dose Admin Sodium Chloride (NS Flush) 2 ml UNSCH PRN IV FLUSH FLUSH AFTER USING IV ACCESS 12/17/16 19:00 12/26/16 07:44 Sodium Chloride (NS Flush) 2 ml BID IV FLUSH 12/17/16 21:00 12/29/16 09:42 Ondansetron HCl (Zofran Inj) 4 mg Q6H PRN IVP NAUSEA OR VOMITING 12/17/16 19:00 12/28/16 07:28 Lactobacillus Acidophilus (Lactinex) 1 tab TID PO 12/18/16 09:00 12/29/16 12:10 Albuterol/ Ipratropium (Duoneb Neb) 1 ampule Q2HR NEB PRN NEB wheezing 12/17/16 22:15 12/29/16 07:36 Acetaminophen/ Hydrocodone Bitart (Corolla 10-325 Mg) 1 tab Q4H PRN PO PAIN 12/18/16 00:00 12/29/16 00:09 Levofloxacin/ Dextrose 150 ml @ 100 mls/hr Q24H IV 12/18/16 09:00 12/29/16 09:42 Furosemide (Lasix Inj) 20 mg BID@18 IV PUSH 12/18/16 09:00 Future Hold 12/18/16 18:26 Budesonide/ Formoterol Fumarate (Symbicort 80-4.5 Mcg Inh) 2 puff Q12HR INH 12/18/16 21:00 12/18/16 20:25 Pantoprazole Sodium (Protonix Inj) 40 mg Q12HR IV PUSH 12/19/16 09:30 12/29/16 09:42 Chlorhexidine Gluconate (Peridex 0.12% Liq) 15 ml BID@08,20 OROPHARYNG 12/19/16 20:00 12/28/16 20:43 Miscellaneous Information Patient in critical care unit? Ass... Q361D .XX 12/19/16 20:30 12/19/16 20:30 Potassium Bicarb/ Potassium Chloride (K-Lyte Cl Eff) 50 meq UNSCH PRN PO For Potassium 3.3 - 3.5 mEq/L 12/23/16 10:00 12/28/16 05:50 Potassium Phosphate (K-Phos) 2,000 mg Q4H PRN PO For Phosphorus < 2.5 mg/dL 12/23/16 10:00 12/25/16 12:32 Insulin Aspart (NovoLOG SUPPLEMENTAL SCALE) 1 Q6H SQ 12/23/16 12:00 12/26/16 11:43 Docusate Sodium (Colace Liq) 100 mg Q12HR PO 12/24/16 21:00 12/29/16 09:42 Sennosides (Senna Liq) 8.8 mg DAILY PO 12/24/16 17:00 12/27/16 09:01 Metoprolol Tartrate (Lopressor) 25 mg Q12HR PO 12/26/16 09:00 12/29/16 12:10 Linezolid (Zyvox) 600 mg Q12HR PO 12/27/16 10:00 12/29/16 09:42 Lactulose (Lactulose Liq) 30 ml TID PO 12/27/16 10:00 12/27/16 18:00 Diazepam (Valium) 5 mg Q8H PRN PO ANXIETY 12/29/16 14:00 12/29/16 14:14 Objective Remarks GENERAL: acutely ill SKIN: Warm and dry. CARDIOVASCULAR: Regular rate and rhythm without murmurs. RESPIRATORY: Breath sounds equal bilaterally. . GASTROINTESTINAL: Abdomen soft, non-tender, nondistended. EXTREMITIES: No cyanosis, or edema. MUSCULOSKELETAL: Adequate muscle tone. Assessment/Plan Problem List: (1) Thrombocytopenia ICD Codes: D69.6 - Thrombocytopenia, unspecified Status: Chronic Plan: HIT panel weekly positive--await DALE --coags mildly prolonged. fibrinogen>400 --T.bili WNL, LFT's WNL (2) Pericardial effusion ICD Codes: I31.3 - Pericardial effusion (noninflammatory) Status: Chronic Plan: --refusing surgical intervention --does have a large pericardial effusion which may need to be drained. ++chronic right upper lobe consolidated area which appears to be more reactive in nature than malignancy. --may be chronic radiation changes combined with severe emphysema. (3) Anemia of chronic disease ICD Codes: D63.8 - Anemia of chronic disease Status: Chronic Plan: --monitor and transfuse as needed (4) Non-small cell lung cancer Status: Chronic Plan: --history of stage III lung cancer. --treated with combined chemoradiation in 2011. --was definitive treatment with a curative intent. --had complete response after his treatment and he has been under close observation. (5) Acute hypoxemic respiratory failure ICD Codes: J96.01 - Acute respiratory failure with hypoxia Assessment 61y/o male w/ h/o lung cancer, admitted with acute dyspnea and CHF. history of tobacco abuse and COPD/severe emphysema. h/o Hypertension. CHF. Plan 1. Anemia due to acute illness: hb low. transfuse 1 unit of pRBC 2. Thrombocytopenia: stable due to sepsis/illness. DALE negative --Not HIT- CHECK DAILY FIBRINOGEN AND INR --PLT count up 3. Hx of Lung cancer 4. Cardiac tamponade/respiratory failure Long discussion with family--poor prognosis due to cardiac issues no evidence of recurrent cancer approximately 30 minutes spent in evaluation/coordination of care/discussion with family d/w rn o/n events reviewed River Santana MD Dec 29, 2016 15:02
[2016-12-29] MEDS ORDERED: FUROSEMIDE 40 MG/4 ML VIAL IV PUSH ONE (17:15)
[2016-12-30] VITALS (16 sets, daily range): BP systolic 104–127; BP diastolic 59–66; PULSE 108–128; RESP 17–34; TEMP 97.9–98.7; O2SAT 94–100
[2016-12-30 04:10] LABS: HEMATOCRIT 26.1 % (39.0-51.0); MEAN CELL VOLUME 89.9 FL (80.0-100.0); WHITE BLOOD COUNT 7.8 TH/MM3 (4.0-11.0)
[2016-12-30 04:11] LABS: BASOPHIL # 0.3 TH/MM3 (0-0.2); BASOPHIL % 3.7 % (0.0-2.0); EOSINOPHIL % 0.3 % (0.0-4.0); LYMPHOCYTE # 0.6 TH/MM3 (1.0-4.8); MEAN CORPUSCULAR HEMOGLOBIN 29.3 PG (27.0-34.0); MEAN CORPUSCULAR HGB CONC 32.5 % (32.0-36.0); MONO % 10.3 % (0.0-8.0); NEUT % 77.7 % (16.0-70.0); PLATELET COUNT 105 TH/MM3 (150-450); RED CELL DISTRIBUTION WIDTH 27.3 % (11.6-17.2)
--- NOTE | 2016-12-30 04:24 | RADRPT ---
EXAM DATE/TIME: 12/30/2016 02:29 [facility] COMPARISON: CHEST SINGLE AP, December 29, 2016, 3:54. INDICATIONS : Congestion, Shortness of breath MEDICAL HISTORY : Carcinoma, lung. Gastroesophageal reflux disease. Chronic obstructive pulmonary disease. SURGICAL HISTORY : None. ENCOUNTER: Subsequent ACUITY: 1 week PAIN SCORE: 7/10 LOCATION: Bilateral chest FINDINGS: Dense consolidation with volume loss again noted of the right lung apex, not significantly changed. T here is increasing diffuse bibasilar consolidation on the left and probably a small left pleural effu michaela. No pneumothorax seen. Heart size stable, upper limits of normal. Patient has been extubated. Nasogastric tube is also out. Right internal jugular [id number] catheter are again seen, tip in the superior vena cava. CONCLUSION: 1. No change chronic consolidation and volume loss of the right upper lobe. 2. Worsening diffuse bibasilar predominant consolidation and small pleural effusion on the left. 3. Interim extubation and nasogastric tube removal. Jose Francois MD on December 30, 2016 at 4:22 Board Certified Radiologist. This report was verified electronically.
[2016-12-30 04:41] LABS: BICARBONATE 36.7 MEQ/L (21.0-32.0); POTASSIUM 3.4 MEQ/L (3.5-5.1)
[2016-12-30 04:57] LABS: HEMO FLAGS AUTO DIFF
[2016-12-30 05:01] LABS: PLATELET ESTIMATE SMEAR LOW (NORMAL); PLATELET MORPHOLOGY ENLARGED (NORMAL); SCAN/DIFF AUTO DIFF CONFIRMED
[2016-12-30 05:03] LABS: KERATOCYTES OCC (NORMAL)
[2016-12-30 05:04] LABS: STOMATOCYTES 1+ (NORMAL)
[2016-12-30] MEDS: INSULIN ASPART SUPPLEMENTAL SCALE SQ SCH ×4 (06:00→17:22)
[2016-12-30] MEDS: POTASSIUM CHLORIDE 25 MEQ EFFERVESCENT TAB PO PRN ×2 (06:19→06:22)
[2016-12-30] MEDS: SODIUM CHLORIDE 0.9% FLUSH 10 ML FLUSH IV FLUSH SCH ×2 (07:38→19:31)
[2016-12-30] MEDS: CHLORHEXIDINE GLUCONATE 0.12% 15 ML CUP OROPHARYNG SCH ×2 (08:00→19:30)
[2016-12-30] MEDS: POTASSIUM CHLORIDE INJ 30 MEQ in SODIUM CHLORIDE 0.9% INJ 100 ML IV-CENTRAL SCH ×2 (08:08→11:54)
[2016-12-30 08:09] LABS: BLOOD GAS BASE EXCESS 8.6 mmol/L (-2-2); BLOOD GAS CARBOXYHEMOGLOBIN 1.3 % (0-4); BLOOD GAS HCO3 36 mmol/L (22-26); BLOOD GAS O2 HGB SATURATION 97 % (90-100); BLOOD GAS OXYGEN CONTENT 12.5 Vol % (12.0-20.0); BLOOD GAS PCO2 82 mmHg (38-42); BLOOD GAS PO2 176 mmHg (61-120); BLOOD GAS TOTAL HGB 8.9 G/DL (12.0-16.0); CRITICAL VALUE YES; DRAW SITE LT RADIAL; NUMBER OF ARTERIAL PUNCTURES 1; OXYGEN DEVICE PARTIAL REBREATHER; STAT NO; TEMP CORR TO 98.6; ULNAR PULSE PRESENT
[2016-12-30] MEDS: LINEZOLID 600 MG TAB PO SCH (09:00)
[2016-12-30] MEDS: LACTULOSE SYRUP 20 GM/30 ML CUP PO SCH ×3 (09:00→17:18)
[2016-12-30] MEDS: DOCUSATE SODIUM 100 MG/10 ML UDC PO SCH ×2 (09:00→19:31)
[2016-12-30] MEDS: LACTOBACILLUS ACIDOPHILUS TAB PO SCH ×3 (09:00→17:18)
[2016-12-30] MEDS: SENNOSIDES SYRUP 8.8 MG/5 ML CUP PO SCH (09:00)
[2016-12-30] MEDS: LEVOFLOXACIN 750 MG PREMIX INJ 150 ML IV SCH (09:50)
[2016-12-30] MEDS: PANTOPRAZOLE SODIUM 40 MG VIAL IV PUSH SCH (09:52)
[2016-12-30] MEDS ORDERED: FUROSEMIDE 20 MG/2 ML VIAL IV PUSH ONE (10:30)
--- NOTE | 2016-12-30 10:32 | HHI.CCPN ---
Subjective Remarks/Hospital Course History of Present Illness This is a 61-year-old male who was admitted on 12/17 2016 with complaints of dyspnea. The patient notably has a medical history significant for lung cancer stage III status post chemotherapy and radiation therapy in 2011. Upon admission to [facility] workup was performed which was noted with a significant pericardial effusion. An echo was performed on 12/18/16 and it noted a significant pericardial effusion with cardiac tamponade physiology. Patient has a history of a chronic pericardial effusion. The patient was a Halicat response to IM secondary to increasing dyspnea with sinus tachycardia and acute decompensation. Upon presentation to the ICU the patient's PaO2 was noted to be 50, tachypnea, dyspneic on CPAP. The patient was emergently intubated and sent emergently for CT-guided pericardiocentesis by interventional radiology. Subjective: 12/20: The patient continues to have hemodynamic instability requiring norepinephrine infusion to maintain a MAP of 60. Unsuccessful pericardial drain placement yesterday secondary to inability to gain safe window access. The patient had continuously refused even prior to the emergency intubation any type of surgical procedure on 12/19/16. Palliative care was consulted to define goals of care as we'll contact sister, to update on patient's medical status. 12/21: The patient continues in sinus tachycardia hypotension on a vasopressive medication norepinephrine. Repeat echo performed today revealing moderate pericardial effusion with cardiac tamponade physiology . Patient previously seen by Dr. Manfred Amaya and stated that he was agreed to a pericardial window early this a.m. A stat echo was performed revealing cardiac temp not physiology. CTS was consulted, echo review with Dr. Amaya, patient lightened as previously earlier this a.m., nodding and understanding to yes and no questions responding what yes and no answers by nodding his head. We discussed with the patient the option of pericardial window and in the presence of Dr. Amaya,myself and Ms. Astorga. The patient adamantly refused again to have any type of surgical procedure. Contacted POA Mr. Inman, the patient's brother and informed him of the situation. Will continue as previously planned , with palliative care meeting and discussion for possible hospice in the near future. The patient does not want any surgical intervention at this time and understands the risk to include possible . 12/22: Tmax 101.6 . The patient continues on vancomycin, Levaquin and micafungin. Repeat blood, urine and sputum cultures being obtained Last night the patient received an amiodarone bolus and amiodarone infusion which now has been discontinued. The patient continues in sinus tach with a heart rate in the 120s, systolic pressure in the 80s on norepinephrine infusion. The patient' s RASS score was deepened 2/2 decrease amount of sedation. We will lighten sedation to a RASS -2, and maintain RASS -2. 12/23 Patient remains intubated and sedated with Fentanyl infusion. On Levophed 11 mics. Off versed. T;100.2 last night. 12/24 Patient is intubated. Off sedation this morning. T:100.1 last night. Levophed down 5 mics. 12/25 Patient remains intubated. Off Levophed. Afebrile. Tolerated CPAP for 3 hrs yesterday.. s/p transfusion 1unit PRBC last night. 12/26 No events overnight. On CPAP with PS 12, PEEP:5 and FIO2 35%. Afebrile. 12/27 No events overnight. On Fentanyl drip but awake and alert. On CPAP 15/5 with 35% FIO2. Afebrile. 12/28 Patient remains intubated and sedated with Fentanyl. ABG yesterday on CPAP showed CO2 58. Afebrile. 12/29 Not requiring pressors. Tolerating CPAP with RSBI in 50s, NIF -51. Plan to extubate today. At risk for extubation failure. Discussed with patient's zylone-mq-iin Leslie (primary HCS) and brother Rahul prior to extubation and they say they plan to honor patients prior wishes regarding no reintubation, . Subjective: 12/30 Respiratory status declined post-extubation and discussed with healthcare surrogate. At that point they were conflicted about how to proceed because they felt he "was making amends with his ex- (they are ) and his son and he seems like he wants more time to live". They struggled with decision but ultimately felt that if he required reintubation overnight last night that they would proceed with reintubation "so that he is not struggling to breathe" and then they would discuss how to proceed from there after discussion with Miguelina with palliative care on Saturday. They agreed that he had always been adamant that he would not want trach, but they felt that he might be kept sedated on the vent to allow family more time to discuss the possibility of terminal extubation. They also stated he had been adamant he did not want pericardial window. This morning he was hypercapneic after he had refused Bipap. Bipap was replaced and ABG improved. He was given Diamox and then lasix and diuresed. Respiratory status was initially slightly better and he was communicating with his ex- Kimberly and said he "wanted to go home" and "didn't want this stuff on him" and when reintubation was discussed he stated "he did not want to go back on the machine" even if he will without it. He stated "I am done". He then declined again and was agitated and pulling off oxygen mask and desaturating, in respiratory distress. Kimberly inquired whether he could be kept comfortable without reintubating. I called Leslie and she stated that the family has discussed and they agree that it is time to proceed with comfort measures. They said they would arrive in about an hour to see him. He was given Ativan 2 mg IV due to severe agitation and distress. They later arrived at bedside and were talking with him. Leslie then expressed concern that respiratory distress was worsening and requested additional comfort meds. Code status changed to DNR and patient transitioned to comfort based care. Objective Vital Signs Date Time Temp Pulse Resp B/P (MAP) Pulse Ox O2 Delivery O2 Flow Rate FiO2 12/30/16 08:16 94 Bi-Pap 50 12/30/16 06:00 120 12/30/16 04:53 6.00 12/30/16 04:00 97.9 32 127/61 (83) Intake and Output 12/30/16 12/30/16 12/31/16 08:00 16:00 00:00 Intake Total 355 ml Output Total 2650 ml Balance -2295 ml Result Diagram: 12/30/16 0345 12/30/16 0345 Other Results Laboratory Tests Test 12/30/16 08:00 Blood Gas Puncture Site LT RADIAL Blood Gas Patient Temperature 98.6 Blood Gas HCO3 36 mmol/L (22-26) Blood Gas Base Excess 8.6 mmol/L (-2-2) Blood Gas Oxygen Saturation 97 % (90-100) Arterial Blood pH 7.26 (7.380-7.420) Arterial Blood Partial Pressure CO2 82 mmHg (38-42) Arterial Blood Partial Pressure O2 176 mmHg (61-120) Arterial Blood Oxygen Content 12.5 Vol % (12.0-20.0) Arterial Blood Carboxyhemoglobin 1.3 % (0-4) Arterial Blood Methemoglobin 1.0 % (0-2) Blood Gas Hemoglobin 8.9 G/DL (12.0-16.0) Oxygen Delivery Device PARTIAL REBREATHER Imaging Last Impressions Abdomen X-Ray 12/27/16 0000 Signed Impressions: Service Date/Time: December 09:03 - CONCLUSION: 1. No dilated loops of small or large bowel. 2. 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 Findings are more severe on the right than the left. Jose Antonio Hogan MD Chest X-Ray 12/25/16 0000 Signed Impressions: Service Date/Time: Sunday, December 25, 2016 09:53 - CONCLUSION: 1. Stable exam with chronic changes as detailed above. No acute infiltrate. Jose Antonio Snow Jr., MD Pericardiocentesis 12/19/16 0802 Signed Impressions: Service Date/Time: Monday, December 19, 2016 08:42 - CONCLUSION: Unsuccessful pericardial drain placement. The pericardial effusion has significantly decreased in size from yesterday's examination and attempting drainage at 2 separate locations was unsuccessful. Jose Turner MD CT Angiography 12/18/16 0000 Signed Impressions: Service Date/Time: Sunday, December 18, 2016 01:41 - CONCLUSION: 1. No evidence of pulmonary embolism. 2. Right upper lobe atelectasis 3. Bilateral edema versus pneumonia 4. Large pericardial effusion which appears chronic Orlando Bolaños MD Objective Remarks GENERAL: Patient is 61 yo on Bipap, tachypneic in 30s, intermittently agitated. SKIN: Warm and dry. HEAD: Atraumatic. Normocephalic. EYES: Pupils equal and round. No scleral icterus. No injection or drainage. ENT: Bipap mask in place. NECK: Trachea midline. CARDIOVASCULAR: tachycardic 120s, no mrg. RESPIRATORY: Coarse bilateral breath sounds GASTROINTESTINAL: Abdomen soft, non-tender, nondistended. No guarding. MUSCULOSKELETAL: Extremities without clubbing, cyanosis. No edema NEUROLOGICAL: Awake , moving all extremities spontaneously Date of Insertion: Dec 19, 2016 A/P Problem List: (1) Cardiac tamponade ICD Code: I31.4 - Cardiac tamponade Status: Acute (2) Non-small cell carcinoma of left lung, stage 3 ICD Code: C34.92 - Malignant neoplasm of unspecified part of left bronchus or lung Status: Resolved (3) Pericardial effusion ICD Code: I31.3 - Pericardial effusion (noninflammatory) Status: Chronic (4) Tobacco dependence syndrome Status: Chronic (5) Anxiety disorder Status: Chronic (6) Emphysema of lung ICD Code: J43.9 - Emphysema, unspecified Status: Chronic (7) COPD (chronic obstructive pulmonary disease) ICD Code: J44.9 - Chronic obstructive pulmonary disease, unspecified Status: Chronic (8) Thrombocytopenia ICD Code: D69.6 - Thrombocytopenia, unspecified Status: Chronic (9) Emphysema lung ICD Code: J43.9 - Emphysema, unspecified Status: Chronic (10) Physical deconditioning ICD Code: R53.81 - Other malaise Status: Chronic (11) Respiratory failure with hypoxia and hypercapnia ICD Code: J96.91 - Respiratory failure, unspecified with hypoxia; J96.92 - Respiratory failure, unspecified with hypercapnia Status: Acute (12) MSSA (methicillin susceptible Staphylococcus aureus) pneumonia ICD Code: J15.211 - Pneumonia due to Methicillin susceptible Staphylococcus aureus Status: Acute Assessment and Plan PLAN Neurologic: Anxiety Was on valium as home med for anxiety. No on Ativan prn. Respiratory: Acute hypoxemic and hypercapneic respiratory failure Lung cancer stage III status post XRT and chemotherapy Severe emphysema COPD Ongoing tobacco abuse Hoarseness (vocal cord scarring-prior to this admission) 12/18 Emergently intubated 8.0 ETT at 23.5 cm Extubated 12/29 and initially tolerating NC but respiratory status declined and placed on Bipap overnight. Was not compliant with Bipap and developed progressive respiratory distress. Placed back on Bipap, diuresed with diamox and lasix. Was initially going to proceed with reintubation per prior discussion with family that occurred evening of 12/29, however they now state they wish to proceed with comfort measures. Given some ativan and he responded well. Bronchodilators every 6 hours scheduled every 2 hours when necessary Continue Symbicort. Lasix 40 mg IV q12 hours. Ativan/Morphine prn. Per prior palliative care notes patient & family previously indicated he did not want surgical intervention, trach/PEG tube placements. Ex- at bedside and she does not have decision making power but she states that transition to comfort measures is consistent with "what he has always said he wanted if it came to this". They apparently have been but living together for 5 years. CV: Large pericardial effusion with pericardial tamponade History of CHF NOS Has had longstanding moderate sized pericardial effusion since at least 2014 but now with tamponade physiology. 12/18 echo-EF 50-70%, trivial pulmonary regurg, significant pericardial effusion and tamponade physiology 12/18 unsuccessful emergent pericardiocentesis with drain by IR. Patient has repeatedly refused any surgical intervention by [facility] prior to intubation. 12/21: Repeat echo moderate pericardial effusion with tamponade physiology, severely depressed EF. CTS- previously evaluated but patient refused intervention. Renal: Monitor renal function, I/O's, electrolytes replacement per protocol. FEN/GI: GERD NPO now except meds. Bowel regimen with Colace, Senna , Lactulose. Omeprazole GI prophylaxis KUB abdomen: No dilated loops of small or large bowel. 2. Significant change in appearance of the femoral heads when compared to July 2015, characteristic of bilateral aseptic necrosis Heme: History of non-small cell lung cancer 2012 s/p chemo and radiation Thrombocytopenia Microcytic anemia Hematology oncology following- Dr. River Santana. Notes reviewed.Patient treated with chemo/radiation in 2011 and reportedly followed closely s/p transfusion 1unit PRBC 12/24. ID: MSSA pneumonia, community acquired Sputum cx:12/22 :MSSA. Continue Zyvox 600mg PO Q12. Of note patient has anaphylaxis to Penicillin G. 12/28 with staph aureus, sensitivity pending. HIT panel-weakly positive, patient not on any anticoagulant at this time. Monitor CBC. PLT is improving. Endocrine: Hyperglycemia of critical illness Glucose monitoring per ICU protocol, low dose regimen -- SSI Prophylaxis: GI Prophylaxis Protonix DVT Prophylaxis -- SCDs Lines: Peripheral IVs. Right [id number], Palliative care is following. Family updated 12/29. 12/29 Post-extubation, multiple attempts to discuss with family regarding wishes regarding reintubation/trach/surgery/etc. At first, he seemed alert and able to answer questions of orientation but would not answer regarding his wishes, simply stating "I plan to remain optimistic about this and don't want to talk about this until I speak with my brother." We did provide him opportunity to speak with his brother. However, he became increasingly confused and he did not appear capacitated for MDM because his answers were inconsistent and he did not demonstrate understanding of the concepts being discussed. Family including sister in law Leslie and brother Rahul attempted to speak with him but they agreed his answers were inconsistent and I discussed that he is currently not able to provide reliable information regarding his wishes. Leslie does state that he consistently stated he did not want pericardial window , did not want trach. However, she feels conflicted because she states he has recently had reconciliation with his (they have been 5 years) and that after he was first extubated today he "said he wanted to live". Therefore, she states that if he fails extubation that she would desire reintubation. She states that "then he would be sedated and I wouldn't have to worry that he is uncomfortable" and she also states "that would allow the family more time to discuss how to proceed from there, (whether to proceed with pericardial window or trach)". At this point, during efforts to clarify code status he has been placed on Bipap and have attempted diuresis (though admittedly diuresis could result in worsening hemodynamics, he appears to have pulmonary congestion on exam and now with impending resp failure). He does seem to be responding and is comfortable on Bipap so discussed with family it appears appropriate to maintain on Bipap for now and they are agreeable. Agree to reintubate if fails Bipap. From there, they would like input from other family and discussion with palliative care regarding goals of care 12/30 - Family at bedside and desires transition to comfort measures as per discussion under "subjective". Palliative care to follow, consider transition to hospice care center tomorrow. Level 3 Indy Grant MD Dec 30, 2016 10:32
[2016-12-30 10:48] LABS: BLOOD GAS BASE EXCESS 8.2 mmol/L (-2-2); BLOOD GAS CARBOXYHEMOGLOBIN 1.5 % (0-4); BLOOD GAS HCO3 34 mmol/L (22-26); BLOOD GAS O2 HGB SATURATION 96 % (90-100); BLOOD GAS OXYGEN CONTENT 11.3 Vol % (12.0-20.0); BLOOD GAS PCO2 64 mmHg (38-42); BLOOD GAS PO2 127 mmHg (61-120); BLOOD GAS TOTAL HGB 8.2 G/DL (12.0-16.0); TEMP CORR TO 98.6
[2016-12-30 10:49] LABS: CRITICAL VALUE YES; DRAW SITE LT RADIAL; FIO2 50 %; NUMBER OF ARTERIAL PUNCTURES 1; OXYGEN DEVICE BIPAP 18IPAP/5EPAP; STAT NO; ULNAR PULSE PRESENT
[2016-12-30] MEDS: LINEZOLID 600 MG PREMIX 300 ML IV SCH (13:18)
[2016-12-30] MEDS ORDERED: ETOMIDATE 40 MG/20 ML VIAL ONE (15:26)
[2016-12-30] MEDS ORDERED: LORazepam 2 MG/ML VIAL ONE (16:07)
[2016-12-30] MEDS ORDERED: LORazepam 2 MG/ML VIAL IV ONE ×2 (16:30→19:00)
[2016-12-30] MEDS ORDERED: LORazepam 2 MG/ML VIAL IV PUSH ONE ×2 (16:45→18:30)
[2016-12-30] MEDS ORDERED: LORazepam 2 MG/ML VIAL IV PUSH PRN (18:30)
[2016-12-30] MEDS ORDERED: MORPHINE SULFATE 8 MG/ML INJ ONE (18:30)
[2016-12-30] MEDS ORDERED: MORPHINE SULFATE 8 MG/ML INJ IV PUSH ONE ×2 (18:30→19:00)
[2016-12-30] MEDS: SODIUM CHLORIDE 0.9% FLUSH 10 ML FLUSH IV FLUSH PRN (18:33)
[2016-12-30] MEDS: LORazepam 2 MG/ML VIAL IV PUSH PRN (19:29)
[2016-12-30] MEDS: FUROSEMIDE 40 MG/4 ML VIAL IV PUSH SCH (19:29)
[2016-12-30] MEDS: BUDESONIDE-FORMOTEROL 80/4.5 MCG INHALER INH SCH (19:30)
[2016-12-30] MEDS: MORPHINE SULFATE 8 MG/ML INJ IV PUSH PRN (19:30)
[2016-12-30] MEDS: RESP: ALBUTEROL 2.5 MG/IPRATROPIUM 0.5 MG NEB (SCH) NEB (20:24)
[2016-12-31] VITALS (10 sets, daily range): BP systolic 99–140; BP diastolic 57–70; PULSE 80–132; RESP 17–39; TEMP 98.2–98.5; O2SAT 81–100
[2016-12-31] MEDS: MORPHINE SULFATE 2 MG/ML INJ IV PUSH PRN ×2 (00:48→12:46)
[2016-12-31] MEDS: LORazepam 2 MG/ML VIAL IV PUSH PRN ×4 (00:49→15:31)
[2016-12-31] MEDS: LINEZOLID 600 MG PREMIX 300 ML IV SCH ×2 (00:49→12:00)
[2016-12-31] MEDS: RESP: ALBUTEROL 2.5 MG/IPRATROPIUM 0.5 MG NEB (SCH) NEB ×2 (04:00→07:47)
[2016-12-31] MEDS: DOCUSATE SODIUM 100 MG/10 ML UDC PO SCH (07:36)
[2016-12-31] MEDS: FUROSEMIDE 40 MG/4 ML VIAL IV PUSH SCH (07:36)
[2016-12-31] MEDS: CHLORHEXIDINE GLUCONATE 0.12% 15 ML CUP OROPHARYNG SCH (07:37)
[2016-12-31] MEDS: LACTOBACILLUS ACIDOPHILUS TAB PO SCH ×2 (07:37→10:56)
[2016-12-31] MEDS: SODIUM CHLORIDE 0.9% FLUSH 10 ML FLUSH IV FLUSH SCH (07:37)
[2016-12-31] MEDS: LACTULOSE SYRUP 20 GM/30 ML CUP PO SCH ×2 (07:37→13:00)
[2016-12-31] MEDS: SENNOSIDES SYRUP 8.8 MG/5 ML CUP PO SCH (07:37)
[2016-12-31] MEDS: BUDESONIDE-FORMOTEROL 80/4.5 MCG INHALER INH SCH (07:37)
--- NOTE | 2016-12-31 10:42 | HHI.CCPN ---
Subjective Remarks/Hospital Course History of Present Illness This is a 61-year-old male who was admitted on 12/17 2016 with complaints of dyspnea. The patient notably has a medical history significant for lung cancer stage III status post chemotherapy and radiation therapy in 2011. Upon admission to [facility] workup was performed which was noted with a significant pericardial effusion. An echo was performed on 12/18/16 and it noted a significant pericardial effusion with cardiac tamponade physiology. Patient has a history of a chronic pericardial effusion. The patient was a Halicat response to IM secondary to increasing dyspnea with sinus tachycardia and acute decompensation. Upon presentation to the ICU the patient's PaO2 was noted to be 50, tachypnea, dyspneic on CPAP. The patient was emergently intubated and sent emergently for CT-guided pericardiocentesis by interventional radiology. Subjective: 12/20: The patient continues to have hemodynamic instability requiring norepinephrine infusion to maintain a MAP of 60. Unsuccessful pericardial drain placement yesterday secondary to inability to gain safe window access. The patient had continuously refused even prior to the emergency intubation any type of surgical procedure on 12/19/16. Palliative care was consulted to define goals of care as we'll contact sister, to update on patient's medical status. 12/21: The patient continues in sinus tachycardia hypotension on a vasopressive medication norepinephrine. Repeat echo performed today revealing moderate pericardial effusion with cardiac tamponade physiology . Patient previously seen by Dr. Manfred Amaya and stated that he was agreed to a pericardial window early this a.m. A stat echo was performed revealing cardiac temp not physiology. CTS was consulted, echo review with Dr. Amaya, patient lightened as previously earlier this a.m., nodding and understanding to yes and no questions responding what yes and no answers by nodding his head. We discussed with the patient the option of pericardial window and in the presence of Dr. Amaya,myself and Ms. Astorga. The patient adamantly refused again to have any type of surgical procedure. Contacted POA Mr. Inman, the patient's brother and informed him of the situation. Will continue as previously planned , with palliative care meeting and discussion for possible hospice in the near future. The patient does not want any surgical intervention at this time and understands the risk to include possible . 12/22: Tmax 101.6 . The patient continues on vancomycin, Levaquin and micafungin. Repeat blood, urine and sputum cultures being obtained Last night the patient received an amiodarone bolus and amiodarone infusion which now has been discontinued. The patient continues in sinus tach with a heart rate in the 120s, systolic pressure in the 80s on norepinephrine infusion. The patient' s RASS score was deepened 2/2 decrease amount of sedation. We will lighten sedation to a RASS -2, and maintain RASS -2. 12/23 Patient remains intubated and sedated with Fentanyl infusion. On Levophed 11 mics. Off versed. T;100.2 last night. 12/24 Patient is intubated. Off sedation this morning. T:100.1 last night. Levophed down 5 mics. 12/25 Patient remains intubated. Off Levophed. Afebrile. Tolerated CPAP for 3 hrs yesterday.. s/p transfusion 1unit PRBC last night. 12/26 No events overnight. On CPAP with PS 12, PEEP:5 and FIO2 35%. Afebrile. 12/27 No events overnight. On Fentanyl drip but awake and alert. On CPAP 15/5 with 35% FIO2. Afebrile. 12/28 Patient remains intubated and sedated with Fentanyl. ABG yesterday on CPAP showed CO2 58. Afebrile. 12/29 Not requiring pressors. Tolerating CPAP with RSBI in 50s, NIF -51. Plan to extubate today. At risk for extubation failure. Discussed with patient's [id number] Leslie (primary HCS) and brother Rahul prior to extubation and they say they plan to honor patients prior wishes regarding no reintubation, . Subjective: 12/30 Respiratory status declined post-extubation and discussed with healthcare surrogate. At that point they were conflicted about how to proceed because they felt he "was making amends with his ex- (they are ) and his son and he seems like he wants more time to live". They struggled with decision but ultimately felt that if he required reintubation overnight last night that they would proceed with reintubation "so that he is not struggling to breathe" and then they would discuss how to proceed from there after discussion with Miguelina with palliative care on Saturday. They agreed that he had always been adamant that he would not want trach, but they felt that he might be kept sedated on the vent to allow family more time to discuss the possibility of terminal extubation. They also stated he had been adamant he did not want pericardial window. This morning he was hypercapneic after he had refused Bipap. Bipap was replaced and ABG improved. He was given Diamox and then lasix and diuresed. Respiratory status was initially slightly better and he was communicating with his ex- Kimberly and said he "wanted to go home" and "didn't want this stuff on him" and when reintubation was discussed he stated "he did not want to go back on the machine" even if he will without it. He stated "I am done". He then declined again and was agitated and pulling off oxygen mask and desaturating, in respiratory distress. Kimberly inquired whether he could be kept comfortable without reintubating. I called Leslie and she stated that the family has discussed and they agree that it is time to proceed with comfort measures. They said they would arrive in about an hour to see him. He was given Ativan 2 mg IV due to severe agitation and distress. They later arrived at bedside and were talking with him. Leslie then expressed concern that respiratory distress was worsening and requested additional comfort meds. Code status changed to DNR and patient transitioned to comfort based care. 12/31: Patient currently changed from 100% nonrebreather to Ventimask. Breathing is still labored but refuses BiPAP. Currently comfort based care, recommend transition to hospice. Palliative care meeting with family Objective Vital Signs Date Time Temp Pulse Resp B/P (MAP) Pulse Ox O2 Delivery O2 Flow Rate FiO2 12/31/16 08:17 94 Nasal Cannula 6.00 12/31/16 08:00 123 12/31/16 08:00 98.2 32 140/69 (92) 12/30/16 12:00 50 Intake and Output 12/31/16 12/31/16 01/01/17 08:00 16:00 00:00 Output Total 2500 ml Balance -2500 ml Result Diagram: 12/30/16 0345 12/30/16 0345 Other Results Laboratory Tests Test 12/30/16 10:40 Blood Gas Puncture Site LT RADIAL Blood Gas Patient Temperature 98.6 Blood Gas HCO3 34 mmol/L (22-26) Blood Gas Base Excess 8.2 mmol/L (-2-2) Blood Gas Oxygen Saturation 96 % (90-100) Arterial Blood pH 7.35 (7.380-7.420) Arterial Blood Partial Pressure CO2 64 mmHg (38-42) Arterial Blood Partial Pressure O2 127 mmHg (61-120) Arterial Blood Oxygen Content 11.3 Vol % (12.0-20.0) Arterial Blood Carboxyhemoglobin 1.5 % (0-4) Arterial Blood Methemoglobin 1.0 % (0-2) Blood Gas Hemoglobin 8.2 G/DL (12.0-16.0) Oxygen Delivery Device BIPAP 18IPAP/5EPAP Blood Gas Inspired Oxygen 50 % Imaging Last Impressions Abdomen X-Ray 12/27/16 0000 Signed Impressions: Service Date/Time: December 09:03 - CONCLUSION: 1. No dilated loops of small or large bowel. 2. 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 Findings are more severe on the right than the left. Jose Antonio Hogan MD Chest X-Ray 12/25/16 0000 Signed Impressions: Service Date/Time: Sunday, December 25, 2016 09:53 - CONCLUSION: 1. Stable exam with chronic changes as detailed above. No acute infiltrate. Jose Antonio Snow Jr., MD Pericardiocentesis 12/19/16 0802 Signed Impressions: Service Date/Time: Monday, December 19, 2016 08:42 - CONCLUSION: Unsuccessful pericardial drain placement. The pericardial effusion has significantly decreased in size from yesterday's examination and attempting drainage at 2 separate locations was unsuccessful. Jose Turner MD CT Angiography 12/18/16 0000 Signed Impressions: Service Date/Time: Sunday, December 18, 2016 01:41 - CONCLUSION: 1. No evidence of pulmonary embolism. 2. Right upper lobe atelectasis 3. Bilateral edema versus pneumonia 4. Large pericardial effusion which appears chronic Orlando Bolaños MD Objective Remarks GENERAL: Patient is 61 yo on NRB, tachypneic in 30s, intermittently agitated. SKIN: Warm and dry. HEAD: Atraumatic. Normocephalic. EYES: Pupils equal and round. No scleral icterus. No injection or drainage. ENT: NRB mask in place. NECK: Trachea midline. CARDIOVASCULAR: tachycardic 120s, no murmurs RESPIRATORY: Coarse bilateral breath sounds, with coarse crackles GASTROINTESTINAL: Abdomen soft, non-tender, nondistended. No guarding. MUSCULOSKELETAL: Extremities without clubbing, cyanosis. No edema NEUROLOGICAL: Awake , moving all extremities spontaneously Date of Insertion: Dec 19, 2016 A/P Problem List: (1) Cardiac tamponade ICD Code: I31.4 - Cardiac tamponade Status: Acute (2) Non-small cell carcinoma of left lung, stage 3 ICD Code: C34.92 - Malignant neoplasm of unspecified part of left bronchus or lung Status: Resolved (3) Pericardial effusion ICD Code: I31.3 - Pericardial effusion (noninflammatory) Status: Chronic (4) Tobacco dependence syndrome Status: Chronic (5) Anxiety disorder Status: Chronic (6) Emphysema of lung ICD Code: J43.9 - Emphysema, unspecified Status: Chronic (7) COPD (chronic obstructive pulmonary disease) ICD Code: J44.9 - Chronic obstructive pulmonary disease, unspecified Status: Chronic (8) Thrombocytopenia ICD Code: D69.6 - Thrombocytopenia, unspecified Status: Chronic (9) Emphysema lung ICD Code: J43.9 - Emphysema, unspecified Status: Chronic (10) Physical deconditioning ICD Code: R53.81 - Other malaise Status: Chronic (11) Respiratory failure with hypoxia and hypercapnia ICD Code: J96.91 - Respiratory failure, unspecified with hypoxia; J96.92 - Respiratory failure, unspecified with hypercapnia Status: Acute (12) MSSA (methicillin susceptible Staphylococcus aureus) pneumonia ICD Code: J15.211 - Pneumonia due to Methicillin susceptible Staphylococcus aureus Status: Acute Assessment and Plan PLAN Neurologic: Anxiety Was on valium as home med for anxiety. Currently on comfort measures with IV Ativan and morphine when necessary Respiratory: Acute hypoxemic and hypercapnic respiratory failure Lung cancer stage III status post XRT and chemotherapy Severe emphysema COPD Ongoing tobacco abuse Hoarseness (vocal cord scarring-prior to this admission) 12/18 Emergently intubated 8.0 ETT Extubated 12/29 and initially tolerating NC but respiratory status declined and placed on Bipap overnight. Was not compliant with Bipap and developed progressive respiratory distress. Placed back on Bipap, diuresed with diamox and lasix. Currently DNR, family wish to proceed with comfort measures. Recommend Hospice Bronchodilators every 6 hours scheduled every 2 hours when necessary Continue Symbicort. Lasix 40 mg IV q12 hours. Ativan/Morphine prn. Per prior palliative care notes patient & family previously indicated he did not want surgical intervention, trach/PEG tube placements. Ex- at bedside and she does not have decision making power but she states that transition to comfort measures is consistent with "what he has always said he wanted if it came to this". They apparently have been but living together for 5 years. CV: Large pericardial effusion with pericardial tamponade History of CHF NOS Has had longstanding moderate sized pericardial effusion since at least 2014 but now with tamponade physiology. 12/18 echo-EF 50-70%, trivial pulmonary regurg, significant pericardial effusion and tamponade physiology 12/18 unsuccessful emergent pericardiocentesis with drain by IR. Patient has repeatedly refused any surgical intervention by [facility] prior to intubation. 12/21: Repeat echo moderate pericardial effusion with tamponade physiology, severely depressed EF. CTS- previously evaluated but patient refused intervention. Renal: Monitor renal function, I/O's, electrolytes replacement per protocol. FEN/GI: GERD NPO now except meds. Bowel regimen with Colace, Senna , Lactulose. Omeprazole GI prophylaxis KUB abdomen: No dilated loops of small or large bowel. 2. Significant change in appearance of the femoral heads when compared to July 2015, characteristic of bilateral aseptic necrosis Heme: History of non-small cell lung cancer 2011 s/p chemo and radiation Thrombocytopenia Microcytic anemia Hematology oncology following- Dr. River Santana. Notes reviewed.Patient treated with chemo/radiation in 2011 and reportedly followed closely s/p transfusion 1unit PRBC 12/24. ID: MSSA pneumonia, community acquired Sputum cx:12/22 :MSSA. Continue Zyvox 600mg PO Q12. Of note patient has anaphylaxis to Penicillin G. 12/28 with staph aureus, sensitivity pending. HIT panel-weakly positive, patient not on any anticoagulant at this time. Monitor CBC. PLT is improving. Endocrine: Hyperglycemia of critical illness Glucose monitoring per ICU protocol, low dose regimen -- SSI Prophylaxis: GI Prophylaxis Protonix DVT Prophylaxis -- SCDs Lines: Peripheral IVs. Right [id number], Palliative care is following. Family updated 12/29. 12/29 Post-extubation, multiple attempts to discuss with family regarding wishes regarding reintubation/trach/surgery/etc. At first, he seemed alert and able to answer questions of orientation but would not answer regarding his wishes, simply stating "I plan to remain optimistic about this and don't want to talk about this until I speak with my brother." We did provide him opportunity to speak with his brother. However, he became increasingly confused and he did not appear capacitated for MDM because his answers were inconsistent and he did not demonstrate understanding of the concepts being discussed. Family including sister in law Leslie and brother Rahul attempted to speak with him but they agreed his answers were inconsistent and I discussed that he is currently not able to provide reliable information regarding his wishes. Leslie does state that he consistently stated he did not want pericardial window , did not want trach. However, she feels conflicted because she states he has recently had reconciliation with his (they have been 5 years) and that after he was first extubated today he "said he wanted to live". Therefore, she states that if he fails extubation that she would desire reintubation. She states that "then he would be sedated and I wouldn't have to worry that he is uncomfortable" and she also states "that would allow the family more time to discuss how to proceed from there, (whether to proceed with pericardial window or trach)". At this point, during efforts to clarify code status he has been placed on Bipap and have attempted diuresis (though admittedly diuresis could result in worsening hemodynamics, he appears to have pulmonary congestion on exam and now with impending resp failure). He does seem to be responding and is comfortable on Bipap so discussed with family it appears appropriate to maintain on Bipap for now and they are agreeable. Agree to reintubate if fails Bipap. From there, they would like input from other family and discussion with palliative care regarding goals of care 12/30 - Family at bedside and desires transition to comfort measures as per discussion under "subjective". Palliative care to follow, consider transition to hospice care center tomorrow. 12/31: Palliative care is meeting with family today, hospice is recommended Level 2 Rosangela Garcia MD Dec 31, 2016 10:42
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
[2016-12-31] MEDS: MORPHINE SULFATE 8 MG/ML INJ IV PUSH PRN (15:32)
--- NOTE | 2016-12-31 15:34 | HHI.DS ---
Discharge Summary Admission Date Dec 17, 2016 at 18:44 Admitting Diagnosis Left Lung Infiltrate/Hyponatremia (1) Acute hypoxemic respiratory failure ICD Code: J96.01 - Acute respiratory failure with hypoxia Diagnosis: Principal (2) Respiratory failure with hypoxia and hypercapnia ICD Code: J96.91 - Respiratory failure, unspecified with hypoxia; J96.92 - Respiratory failure, unspecified with hypercapnia Diagnosis: Principal Status: Acute (3) Pericardial effusion ICD Code: I31.3 - Pericardial effusion (noninflammatory) Diagnosis: Principal Status: Chronic (4) Cardiac tamponade ICD Code: I31.4 - Cardiac tamponade Diagnosis: Principal Status: Acute (5) Non-small cell carcinoma of left lung, stage 3 ICD Code: C34.92 - Malignant neoplasm of unspecified part of left bronchus or lung Diagnosis: Secondary Status: Resolved (6) COPD (chronic obstructive pulmonary disease) ICD Code: J44.9 - Chronic obstructive pulmonary disease, unspecified Diagnosis: Secondary Status: Chronic (7) MSSA (methicillin susceptible Staphylococcus aureus) pneumonia ICD Code: J15.211 - Pneumonia due to Methicillin susceptible Staphylococcus aureus Diagnosis: Principal Status: Acute (8) Chronic pancreatitis Diagnosis: Secondary Status: Chronic (9) COPD exacerbation ICD Code: J44.1 - COPD exacerbation Diagnosis: Principal Status: Acute (10) Alcohol dependence ICD Code: F10.20 - Alcohol dependence Diagnosis: Secondary Status: Chronic (11) Systolic CHF ICD Code: I50.20 - Systolic CHF Diagnosis: Secondary Status: Chronic (12) Anemia of chronic disease ICD Code: D63.8 - Anemia of chronic disease Diagnosis: Secondary Status: Chronic Procedures Intubation and arterial line placement 12/19/16 Unsuccessful attempt at pericardiocentesis on 12/19/16 Brief History This is a 61-year-old male who was admitted on 12/17 2016 with complaints of dyspnea. The patient notably has a medical history significant for lung cancer stage III status post chemotherapy and radiation therapy in 2011. Upon admission to [facility] workup was performed which was noted with a significant pericardial effusion. An echo was performed on 12/18/16 and it noted a significant pericardial effusion with cardiac tamponade physiology. Patient has a history of a chronic pericardial effusion. The patient was a Halicat response to [facility] secondary to increasing dyspnea with sinus tachycardia and acute decompensation. Upon presentation to the ICU the patient's PaO2 was noted to be 50, tachypnea, dyspneic on CPAP. The patient was emergently intubated and sent emergently for CT-guided pericardiocentesis by interventional radiology. CBC/BMP: 12/30/16 0345 12/30/16 0345 Significant Findings Laboratory Tests Test 12/29/16 03:34 12/30/16 03:45 12/30/16 08:00 12/30/16 10:40 Red Blood Count 2.68 MIL/MM3 (4.50-5.90) 2.90 MIL/MM3 (4.50-5.90) Hemoglobin 8.0 GM/DL (13.0-17.0) 8.5 GM/DL (13.0-17.0) Hematocrit 24.0 % (39.0-51.0) 26.1 % (39.0-51.0) Red Cell Distribution Width 27.7 % (11.6-17.2) 27.3 % (11.6-17.2) Platelet Count 90 TH/MM3 (150-450) 105 TH/MM3 (150-450) Monocytes (%) (Auto) 10.0 % (0.0-8.0) 10.3 % (0.0-8.0) Basophils (%) (Auto) 9.6 % (0.0-2.0) 3.7 % (0.0-2.0) Lymphocytes # (Auto) 0.7 TH/MM3 (1.0-4.8) 0.6 TH/MM3 (1.0-4.8) Basophils # (Auto) 0.6 TH/MM3 (0-0.2) 0.3 TH/MM3 (0-0.2) Band Neutrophils % 7 % (0-6) Monocytes % 11 % (0-8) Metamyelocytes 2 % (0-1) Myelocytes 2 % (0-0) Platelet Estimate LOW (NORMAL) LOW (NORMAL) Platelet Morphology Comment ENLARGED (NORMAL) ENLARGED (NORMAL) Basophilic Stippling FAINT (NORMAL) MOD (NORMAL) Prothrombin Time 12.4 SEC (9.8-11.6) Fibrinogen 420 mg/dL (227-377) Creatinine 0.56 MG/DL (0.60-1.30) 0.54 MG/DL (0.60-1.30) Calcium Level 8.0 MG/DL (8.5-10.1) 8.1 MG/DL (8.5-10.1) Carbon Dioxide Level 36.9 MEQ/L (21.0-32.0) 36.7 MEQ/L (21.0-32.0) Anion Gap 3 MEQ/L (5-15) Neutrophils (%) (Auto) 77.7 % (16.0-70.0) Lymphocytes (%) (Auto) 8.0 % (9.0-44.0) Stomatocytes 1+ (NORMAL) Potassium Level 3.4 MEQ/L (3.5-5.1) Chloride Level 97 MEQ/L (98-107) Blood Gas HCO3 36 mmol/L (22-26) 34 mmol/L (22-26) Blood Gas Base Excess 8.6 mmol/L (-2-2) 8.2 mmol/L (-2-2) Arterial Blood pH 7.26 (7.380-7.420) 7.35 (7.380-7.420) Arterial Blood Partial Pressure CO2 82 mmHg (38-42) 64 mmHg (38-42) Arterial Blood Partial Pressure O2 176 mmHg (61-120) 127 mmHg (61-120) Blood Gas Hemoglobin 8.9 G/DL (12.0-16.0) 8.2 G/DL (12.0-16.0) Arterial Blood Oxygen Content 11.3 Vol % (12.0-20.0) Imaging Reviewed, see chart PE at Discharge GENERAL: Patient appearing older than stated age. Hoarse voice. CARDIOVASCULAR: Normal rate and regular rhythm with 2/6 YOSEF. RESPIRATORY: Diffuse rhonchi bilaterally. GASTROINTESTINAL: Abdomen soft, non-tender, non-distended. Normal active bowel sounds MUSCULOSKELETAL: 2+ bilateral lower extremity edema. NEURO: Alert & Oriented x4 to person, place, time, situation. Moves all ext x4 PSYCH: Appropriate mood and affect. Transfer Summary See hospital course Hospital Course History of Present Illness This is a 61-year-old male who was admitted on 12/17 2016 with complaints of dyspnea. The patient notably has a medical history significant for lung cancer stage III status post chemotherapy and radiation therapy in 2011. Upon admission to [facility] workup was performed which was noted with a significant pericardial effusion. An echo was performed on 12/18/16 and it noted a significant pericardial effusion with cardiac tamponade physiology. Patient has a history of a chronic pericardial effusion. The patient was a Halicat response to [facility] secondary to increasing dyspnea with sinus tachycardia and acute decompensation. Upon presentation to the ICU the patient's PaO2 was noted to be 50, tachypnea, dyspneic on CPAP. The patient was emergently intubated and sent emergently for CT-guided pericardiocentesis by interventional radiology. 12/20: The patient continues to have hemodynamic instability requiring norepinephrine infusion to maintain a MAP of 60. Unsuccessful pericardial drain placement yesterday secondary to inability to gain safe window access. The patient had continuously refused even prior to the emergency intubation any type of surgical procedure on 12/19/16. Palliative care was consulted to define goals of care as we'll contact sister, to update on patient's medical status. 12/21: The patient continues in sinus tachycardia hypotension on a vasopressive medication norepinephrine. Repeat echo performed today revealing moderate pericardial effusion with cardiac tamponade physiology . Patient previously seen by Dr. Manfred Amaya and stated that he was agreed to a pericardial window early this a.m. A stat echo was performed revealing cardiac temp not physiology. CTS was consulted, echo review with Dr. Amaya, patient lightened as previously earlier this a.m., nodding and understanding to yes and no questions responding what yes and no answers by nodding his head. We discussed with the patient the option of pericardial window and in the presence of Dr. Amaya,myself and Ms. Astorga. The patient adamantly refused again to have any type of surgical procedure. Contacted POA Mr. Inman, the patient's brother and informed him of the situation. Will continue as previously planned , with palliative care meeting and discussion for possible hospice in the near future. The patient does not want any surgical intervention at this time and understands the risk to include possible . 12/22: Tmax 101.6 . The patient continues on vancomycin, Levaquin and micafungin. Repeat blood, urine and sputum cultures being obtained Last night the patient received an amiodarone bolus and amiodarone infusion which now has been discontinued. The patient continues in sinus tach with a heart rate in the 120s, systolic pressure in the 80s on norepinephrine infusion. The patient' s RASS score was deepened 2/2 decrease amount of sedation. We will lighten sedation to a RASS -2, and maintain RASS -2. 12/23 Patient remains intubated and sedated with Fentanyl infusion. On Levophed 11 mics. Off versed. T;100.2 last night. 12/24 Patient is intubated. Off sedation this morning. T:100.1 last night. Levophed down 5 mics. 12/25 Patient remains intubated. Off Levophed. Afebrile. Tolerated CPAP for 3 hrs yesterday.. s/p transfusion 1unit PRBC last night. 12/26 No events overnight. On CPAP with PS 12, PEEP:5 and FIO2 35%. Afebrile. 12/27 No events overnight. On Fentanyl drip but awake and alert. On CPAP 15/5 with 35% FIO2. Afebrile. 12/28 Patient remains intubated and sedated with Fentanyl. ABG yesterday on CPAP showed CO2 58. Afebrile. 12/29 Not requiring pressors. Tolerating CPAP with RSBI in 50s, NIF -51. Plan to extubate today. At risk for extubation failure. Discussed with patient's [id number] Leslie (primary HCS) and brother Rahul prior to extubation and they say they plan to honor patients prior wishes regarding no reintubation, . 12/30 Respiratory status declined post-extubation and discussed with healthcare surrogate. At that point they were conflicted about how to proceed because they felt he "was making amends with his ex- (they are ) and his son and he seems like he wants more time to live". They struggled with decision but ultimately felt that if he required reintubation overnight last night that they would proceed with reintubation "so that he is not struggling to breathe" and then they would discuss how to proceed from there after discussion with Miguelina with palliative care on Saturday. They agreed that he had always been adamant that he would not want trach, but they felt that he might be kept sedated on the vent to allow family more time to discuss the possibility of terminal extubation. They also stated he had been adamant he did not want pericardial window. This morning he was hypercapneic after he had refused Bipap. Bipap was replaced and ABG improved. He was given Diamox and then lasix and diuresed. Respiratory status was initially slightly better and he was communicating with his ex- Kimberly and said he "wanted to go home" and "didn't want this stuff on him" and when reintubation was discussed he stated "he did not want to go back on the machine" even if he will without it. He stated "I am done". He then declined again and was agitated and pulling off oxygen mask and desaturating, in respiratory distress. Kimberly inquired whether he could be kept comfortable without reintubating. I called Leslie and she stated that the family has discussed and they agree that it is time to proceed with comfort measures. They said they would arrive in about an hour to see him. He was given Ativan 2 mg IV due to severe agitation and distress. They later arrived at bedside and were talking with him. Leslie then expressed concern that respiratory distress was worsening and requested additional comfort meds. Code status changed to DNR and patient transitioned to comfort based care. 12/31: Patient currently changed from 100% nonrebreather to Ventimask. Breathing is still labored but refuses BiPAP. Currently comfort based care, recommend transition to hospice. Palliative care meeting with family. After meeting family and patient decided for Hospice. Will transfer to Hospice center once bed available Pt Condition on Discharge: Deteriorating Discharge Disposition: Hospice/Med Facility Discharge Instructions DIET: Follow Instructions for: Nothing By Mouth Additional Diet Instructions: Diet per hospice for comfort Activities you can perform: Continue Bedrest Rosangela Garcia MD Dec 31, 2016 15:34
== END 2016-12-31 16:07 | disposition hospice, inpatient (51) | DRG 207 ==
LOC: NEPE 12:11 → NEDA 18:44 → N04A 20:44 → HIMW 12-19 07:45
PROVIDERS: ADMIT Anesthesiology; ATTEND Anesthesiology
PROC: 5A1955Z Respiratory Ventilation, Greater than 96 Consecutive Hours (ICD-10-PCS; principal; 2016-12-19)
PROC: 03HY32Z Insertion of Monitoring Device into Upper Artery, Percutaneous Approach (ICD-10-PCS; 2016-12-19)
PROC: 0BH17EZ Insertion of Endotracheal Airway into Trachea, Via Natural or Artificial Opening (ICD-10-PCS; 2016-12-19)
PROC: 0W9D3ZX Drainage of Pericardial Cavity, Percutaneous Approach, Diagnostic (ICD-10-PCS; 2016-12-19)
PROC: 30233N1 Transfusion of Nonautologous Red Blood Cells into Peripheral Vein, Percutaneous Approach (ICD-10-PCS; 2016-12-24)
PROC: 5A09357 Assistance with Respiratory Ventilation, Less than 24 Consecutive Hours, Continuous Positive Airway Pressure (ICD-10-PCS; 2016-12-29)
DX: J96.21 Acute and chronic respiratory failure with hypoxia (principal); I31.4 Cardiac tamponade; D65 Disseminated intravascular coagulation [defibrination syndrome]; A41.9 Sepsis, unspecified organism; J15.211 Pneumonia due to Methicillin susceptible Staphylococcus aureus; J44.0 Chronic obstructive pulmonary disease with (acute) lower respiratory infection; I11.0 Hypertensive heart disease with heart failure; I50.20 Unspecified systolic (congestive) heart failure; E44.1 Mild protein-calorie malnutrition; D62 Acute posthemorrhagic anemia; E87.1 Hypo-osmolality and hyponatremia; J44.1 Chronic obstructive pulmonary disease with (acute) exacerbation; J98.11 Atelectasis; J96.22 Acute and chronic respiratory failure with hypercapnia; D63.8 Anemia in other chronic diseases classified elsewhere; D50.9 Iron deficiency anemia, unspecified; F10.20 Alcohol dependence, uncomplicated; Z99.81 Dependence on supplemental oxygen; F17.210 Nicotine dependence, cigarettes, uncomplicated; E87.6 Hypokalemia; F41.9 Anxiety disorder, unspecified; M25.551 Pain in right hip; G89.29 Other chronic pain; M79.89 Other specified soft tissue disorders; K21.9 Gastro-esophageal reflux disease without esophagitis; R49.0 Dysphonia; R73.9 Hyperglycemia, unspecified; M19.90 Unspecified osteoarthritis, unspecified site; R29.6 Repeated falls; I37.1 Nonrheumatic pulmonary valve insufficiency; Z51.5 Encounter for palliative care; R00.0 Tachycardia, unspecified; Z53.20 Procedure and treatment not carried out because of patient's decision for unspecified reasons; Z66 Do not resuscitate; T50.2X5A Adverse effect of carbonic-anhydrase inhibitors, benzothiadiazides and other diuretics, initial encounter; Z88.0 Allergy status to penicillin; Z92.3 Personal history of irradiation; Z92.21 Personal history of antineoplastic chemotherapy; Z85.118 Personal history of other malignant neoplasm of bronchus and lung
CPT/HCPCS: 31500; 33010; 36430; 36556; 36600; 71010; 71020; 71275; 74000; 76937; 77012; 80048; 80053; 80076; 80202; 81001; 82247; 82248; 82550; 82805; 82948; 83036; 83615; 83735; 83880; 84100; 84132; 84155; 84484; 85007; 85025; 85027; 85379; 85384; 85610; 85730; 86022; 86403; 86850; 86900; 86901; 86920; 87040; 87070; 87086; 87147; 87186; 87205; 87641; 89051; 93005; 93306; 93308; 94002; 94003; 94150; 94640; 94664; 96365; 96366; 96367; 96375; C9113; J0171; J0282; J0696; J1120; J1650; J1815; J1940; J1956; J2020; J2060; J2248; J2250; J2270; J2405; J2930; J3010; J3370; J3480; J7030; J7040; J7050; J7060; P9016; Q9967